=== PATIENT | male | born 1940 | race Caucasian/White ===

== ENCOUNTER 2016-10-26 12:04 | Inpatient (IN) | payer MEDICARE ==
[2016-10-26] MEDS ORDERED: NITROGLYCERIN SL TABS 0.4 MG TAB SUBLINGUAL STA ×3 (12:25)
[2016-10-26] MEDS ORDERED: ASPIRIN 81 MG CHEW PO STA (12:25)
--- NOTE | 2016-10-26 12:28 | ED ---
General Adult HPI - General Chief complaint: Chest Pain Stated complaint: chest pain Time Seen by Provider: 10/26/16 12:14 Source: patient, RN notes reviewed Mode of arrival: wheelchair Limitations: no limitations - History of Present Illness Initial comments: Patient is a pleasant 76-year-old male presenting to emergency Department complaining of chest discomfort. Discomfort feels like pressure without radiation. Patient had some associated dyspnea earlier however that has resolved. Discomfort has improved to 3/10. Discomfort was worse earlier. Patient has had stress and was doing some mild exertion. No diaphoresis or nausea. Patient has had similar symptoms multiple times previously associated with her problems. Patient has had cardiac bypass and ReVision. Patient has had previous heart attacks. No leg pain or swelling. No cough or fever. - Related Data Home Medications Medication Instructions Recorded Confirmed ALPRAZolam [Xanax] 0.5 mg PO QID PRN 06/28/15 10/26/16 Acetaminophen Tab [Tylenol] 1,000 mg PO TID PRN 06/28/15 10/26/16 Citalopram Hydrobromide 40 mg PO DAILY 06/28/15 10/26/16 [Citalopram HBr] Diltiazem HCl [Cardizem Cd] 120 mg PO DAILY 06/28/15 10/26/16 Dipyridamole [Persantine] 50 mg PO QID 06/28/15 10/26/16 Donepezil [Aricept] 10 mg PO DAILY 06/28/15 10/26/16 HYDROcodone/APAP 7.5-325MG [[place] 1 tab PO BID PRN 06/28/15 10/26/16 7.5-325] Isosorbide Dinitrate [Isordil] 80 mg PO BID 06/28/15 10/26/16 Omeprazole [PriLOSEC] 20 mg PO DAILY PRN 06/28/15 10/26/16 Temazepam [Restoril] 15 mg PO HS PRN 06/28/15 10/26/16 Venlafaxine HCl [Effexor] 37.5 mg PO BID 06/28/15 10/26/16 rOPINIRole HCL [Requip] 1 mg PO HS 06/28/15 10/26/16 Albuterol Inhaler [Ventolin Hfa 1 - 2 puff INHALATION RT-Q6H PRN 10/26/16 Inhaler] Atorvastatin Calcium [Lipitor] 80 mg PO HS 10/26/16 10/26/16 Previous Rx's Medication Instructions Recorded Nitroglycerin Sl Tabs [Nitrostat] 0 mg SUBLINGUAL DIRECTED PRN 06/30/15 #25 tab Allergies Allergy/AdvReac Type Severity Reaction Status Date / Time No Known Allergies Allergy Verified 10/26/16 13:17 Review of Systems ROS Statement: Those systems with pertinent positive or pertinent negative responses have been documented in the HPI. ROS Other: All systems not noted in ROS Statement are negative. Constitutional: Denies: fever Eyes: Denies: as per HPI ENT: Denies: ear pain Respiratory: Reports: dyspnea Cardiovascular: Reports: chest pain Endocrine: Denies: fatigue Gastrointestinal: Denies: abdominal pain Genitourinary: Denies: dysuria Musculoskeletal: Denies: back pain Skin: Denies: rash Neurological: Denies: weakness Past Medical History Past Medical History: Coronary Artery Disease (CAD), Cancer, COPD, Dementia, GERD/Reflux, Hyperlipidemia, Hypertension, Memory Impairment, Myocardial Infarction (AR), Osteoarthritis (OA), Pneumonia Additional Past Medical History / Comment(s): PER PAST MEDICAL(2011) RECORD PT STATED" BLOOD CLOTS IN BRAIN CONTRIBUTED TO HIS EARLY ONSET OF DEMENTIA. SEVERAL AR'S, BRONCHITIS, DIVERTICULAR DISEASE,CHRONIC BACK PAIN, PROSTATE CA( HAD SX) Last Myocardial Infarction Date:: UNK History of Any Multi-Drug Resistant Organisms: None Reported Past Surgical History: Coronary Bypass/CABG, Heart Catheterization With Stent, Prostate Surgery Additional Past Surgical History / Comment(s): CABG TRIOLE VESSEL IN 1988 CABG [id number] IN 1999, THUMB CUT OFF HAD SX TO REATTATCH, COLONOSCOPY, PROSTATECTOMY , RUPTURED ACHILLIES TENDON REPAIR. Past Anesthesia/Blood Transfusion Reactions: No Reported Reaction Date of Last Stent Placement:: UNK Past Psychological History: Anxiety, Depression Smoking Status: Former smoker Past Alcohol Use History: None Reported Additional Past Alcohol Use History / Comment(s): SMOKED X 30 YEARS 1PPD, QUIT 27 YEARS AGO Past Drug Use History: None Reported - Past Family History Father Family Medical History: Coronary Artery Disease (CAD), CVA/TIA Additional Family Medical History / Comment(s): CABG AND VALVE SX Mother Family Medical History: Dementia, Hypertension, Osteoarthritis (OA) Additional Family Medical History / Comment(s): MOM IS ALIVE AT 97 YEARS OLD, LIVING IN [facility] General Exam Limitations: no limitations General appearance: alert, in no apparent distress Head exam: Present: atraumatic Eye exam: Present: normal appearance, PERRL ENT exam: Present: normal oropharynx Neck exam: Present: normal inspection Respiratory exam: Present: normal lung sounds bilaterally. Absent: chest wall tenderness Cardiovascular Exam: Present: normal rhythm, bradycardia Expanded Peripheral pulses: 2+: Radial (R), Radial (L), Dorsalis Pedis (R), Dorsalis Pedis (L) GI/Abdominal exam: Present: soft. Absent: tenderness Extremities exam: Present: normal inspection. Absent: pedal edema, calf tenderness Neurological exam: Present: alert Psychiatric exam: Present: normal affect, normal mood Skin exam: Absent: rash Course Vital Signs 10/26/16 10/26/16 10/26/16 12:06 12:46 12:51 Temperature 97.5 F L Pulse Rate 47 L 52 L 49 L Respiratory 17 18 18 Rate Blood Pressure 133/72 133/77 135/69 O2 Sat by Pulse 97 98 98 Oximetry 10/26/16 12:56 Temperature Pulse Rate 52 L Respiratory 18 Rate Blood Pressure 124/64 O2 Sat by Pulse 98 Oximetry - Reevaluation(s) Reevaluation #1: 10/26/16 12:28 Patient states discomfort is starting to increase and will be provided nitroglycerin. EKG Findings - EKG Comments: EKG Findings:: Sinus bradycardia 45. NH 228. QRS 106. QT 434. QTC 375. First-degree AV block. Left axis. Normal QRS. T wave inversion in leads V3 through V6 which does appear different from previous EKG dated June 29 2015. Medical Decision Making - Medical Decision Making Patient reevaluated and improved. Patient updated on results and plan. Case was discussed in detail with Dr. Gamino who will admit to Dr. saavedra. Dr. saavedra has been paged. Cardiology will be consult it. Admission orders written. IV heparin started. - Lab Data Result diagrams: 10/26/16 12:20 10/26/16 12:20 Lab Results 10/26/16 10/26/16 10/26/16 Range/Units 12:20 12:20 12:20 WBC 5.5 (3.8-10.6) k/uL RBC 4.59 (4.30-5.90) m/uL Hgb 14.6 (13.0-17.5) gm/dL Hct 43.6 (39.0-53.0) % MCV 94.9 (80.0-100.0) fL MCH 31.9 (25.0-35.0) pg MCHC 33.6 (31.0-37.0) g/dL RDW 12.7 (11.5-15.5) % Plt Count 158 (150-450) k/uL Neutrophils % 57 % Lymphocytes % 29 % Monocytes % 8 % Eosinophils % 3 % Basophils % 1 % Neutrophils # 3.1 (1.3-7.7) k/uL Lymphocytes # 1.6 (1.0-4.8) k/uL Monocytes # 0.5 (0-1.0) k/uL Eosinophils # 0.1 (0-0.7) k/uL Basophils # 0.0 (0-0.2) k/uL PT (9.0-12.0) sec INR (<1.1) APTT (22.0-30.0) sec Sodium 141 (137-145) mmol/L Potassium 4.3 (3.5-5.1) mmol/L Chloride 104 (98-107) mmol/L Carbon Dioxide 27 (22-30) mmol/L Anion Gap 10 mmol/L BUN 19 (9-20) mg/dL Creatinine 0.80 (0.66-1.25) mg/dL Est GFR (MDRD) Af Amer >60 (>60 ml/min/1.73 sqM) Est GFR (MDRD) Non-Af >60 (>60 ml/min/1.73 sqM) Glucose 85 (74-99) mg/dL Calcium 9.5 (8.4-10.2) mg/dL Magnesium 1.9 (1.6-2.3) mg/dL Total Bilirubin 0.6 (0.2-1.3) mg/dL AST 27 (17-59) U/L ALT 33 (21-72) U/L Alkaline Phosphatase 85 (38-126) U/L Total Creatine Kinase 70 (55-170) U/L CK-MB (CK-2) 1.1 (0.0-2.4) ng/mL CK-MB (CK-2) Rel Index 1.6 Troponin I <0.012 (0.000-0.034) ng/mL NT-Pro-B Natriuret Pep pg/mL Total Protein 6.4 (6.3-8.2) g/dL Albumin 4.0 (3.5-5.0) g/dL 10/26/16 10/26/16 Range/Units 12:20 12:20 WBC (3.8-10.6) k/uL RBC (4.30-5.90) m/uL Hgb (13.0-17.5) gm/dL Hct (39.0-53.0) % MCV (80.0-100.0) fL MCH (25.0-35.0) pg MCHC (31.0-37.0) g/dL RDW (11.5-15.5) % Plt Count (150-450) k/uL Neutrophils % % Lymphocytes % % Monocytes % % Eosinophils % % Basophils % % Neutrophils # (1.3-7.7) k/uL Lymphocytes # (1.0-4.8) k/uL Monocytes # (0-1.0) k/uL Eosinophils # (0-0.7) k/uL Basophils # (0-0.2) k/uL PT 10.5 (9.0-12.0) sec INR 1.0 (<1.1) APTT 25.3 (22.0-30.0) sec Sodium (137-145) mmol/L Potassium (3.5-5.1) mmol/L Chloride (98-107) mmol/L Carbon Dioxide (22-30) mmol/L Anion Gap mmol/L BUN (9-20) mg/dL Creatinine (0.66-1.25) mg/dL Est GFR (MDRD) Af Amer (>60 ml/min/1.73 sqM) Est GFR (MDRD) Non-Af (>60 ml/min/1.73 sqM) Glucose (74-99) mg/dL Calcium (8.4-10.2) mg/dL Magnesium (1.6-2.3) mg/dL Total Bilirubin (0.2-1.3) mg/dL AST (17-59) U/L ALT (21-72) U/L Alkaline Phosphatase (38-126) U/L Total Creatine Kinase (55-170) U/L CK-MB (CK-2) (0.0-2.4) ng/mL CK-MB (CK-2) Rel Index Troponin I (0.000-0.034) ng/mL NT-Pro-B Natriuret Pep 153 pg/mL Total Protein (6.3-8.2) g/dL Albumin (3.5-5.0) g/dL - Radiology Data Radiology results: image reviewed (Chest x-ray shows no acute process) Critical Care Time Critical Care Time: Yes Total Critical Care Time: 31 Disposition Clinical Impression: Unstable angina pectoris Disposition: ADMITTED IP TO THIS [facility] Condition: Serious Time of Disposition: 13:35
[2016-10-26 12:44] LABS: Basophils % (A) 1 %; CH 32.8; CHCM 34.7; Eosinophils # (A) 0.1 k/uL (0-0.7); Eosinophils % (A) 3 %; HCT 43.6 % (39.0-53.0); HDW 2.62; HGB 14.6 gm/dL (13.0-17.5); Luc # (Auto) 0.15; Luc % (Auto) 3; Lymphocytes # (A) 1.6 k/uL (1.0-4.8); Lymphocytes % (A) 29 %; MCH 31.9 pg (25.0-35.0); MCHC 33.6 g/dL (31.0-37.0); MCV 94.9 fL (80.0-100.0); Mean Platelet Volume 7.6; Monocytes # (A) 0.5 k/uL (0-1.0); Monocytes % (A) 8 %; Neutrophils # (A) 3.1 k/uL (1.3-7.7); Neutrophils % (A) 57 %; RBC 4.59 m/uL (4.30-5.90); RDW 12.7 % (11.5-15.5); WBC 5.5 k/uL (3.8-10.6); WBC (Perox) 5.31
[2016-10-26 12:52] LABS: Partial Thromboplastin Time 25.3 sec (22.0-30.0); Prothrombin Time 10.5 sec (9.0-12.0)
--- NOTE | 2016-10-26 12:52 | XR ---
EXAMINATION TYPE: XR chest 2V DATE OF EXAM: 10/26/2016 12:39 PM COMPARISON: Prior chest x-ray 28 June 2015 HISTORY: Chest pain, COPD TECHNIQUE: Frontal and lateral views of the chest are obtained. FINDINGS: Patient is rotated and there are overlying cardiac leads, patient is post median sternotom y. Heart size may be accentuated by rotation. No evident pneumonia, pneumothorax, or pleural effusion . Pulmonary vascularity and beau are stable. Prominent lung volumes compatible with COPD. IMPRESSION: No acute cardiopulmonary process.
[2016-10-26 12:54] LABS: ALT 33 U/L (21-72); AST 27 U/L (17-59); Alkaline Phosphatase 85 U/L (38-126); Anion Gap 10 mmol/L; Blood Urea Nitrogen 19 mg/dL (9-20); Calcium 9.5 mg/dL (8.4-10.2); Carbon Dioxide 27 mmol/L (22-30); Chloride 104 mmol/L (98-107); Glucose 85 mg/dL (74-99); Magnesium 1.9 mg/dL (1.6-2.3); Non-African American GFR(MDRD) >60 (>60 ml/min/1.73 sqM); Potassium 4.3 mmol/L (3.5-5.1); Sodium 141 mmol/L (137-145); Total Bilirubin 0.6 mg/dL (0.2-1.3); Total Protein 6.4 g/dL (6.3-8.2)
[2016-10-26 13:04] LABS: Creatine Kinase 70 U/L (55-170)
[2016-10-26 13:17] LABS: Creatine Kinase MB 1.1 ng/mL (0.0-2.4); Troponin I <0.012 ng/mL (0.000-0.034)
[2016-10-26] MEDS ORDERED: HEPARIN SODIUM,PORCINE 5,000 UNIT/ML 1 ML VIAL IV ONE (13:36)
[2016-10-26] MEDS ORDERED: HEPARIN SODIUM,PORCINE 5,000 UNIT/ML 1 ML VIAL IV PRN (13:36)
[2016-10-26] MEDS ORDERED: HEPARIN SODIUM,PORCINE/D5W PMX 25,000 UNIT in DEXTROSE/WATER 1 500ML.BAG IV SCH (13:45)
[2016-10-26] MEDS ORDERED: SODIUM CHLORIDE 0.9% 1,000 ML IV SCH (14:00)
[2016-10-26 15:33] VITALS: BMI 26.3
[2016-10-26] MEDS ORDERED: HYDROcodone/APAP 7.5-325MG 1 EACH TAB PO PRN (17:57)
[2016-10-26] MEDS ORDERED: PANTOPRAZOLE 40 MG TABLET PO PRN (17:57)
[2016-10-26] MEDS ORDERED: NITROGLYCERIN OINT 1 INCH/GM PACKET TOPICAL SCH (18:00)
[2016-10-26 19:41] LABS: Creatine Kinase 62 U/L (55-170)
[2016-10-26] MEDS: NITROGLYCERIN SL TABS 0.4 MG TAB SUBLINGUAL PRN ×2 (19:52→20:06)
[2016-10-26 19:54] LABS: Creatine Kinase MB 0.9 ng/mL (0.0-2.4); Troponin I <0.012 ng/mL (0.000-0.034)
[2016-10-26] MEDS: ISOSORBIDE DINITRATE 20 MG TAB PO SCH (20:07)
[2016-10-26] MEDS: DIPYRIDAMOLE 25 MG TAB PO SCH ×2 (20:07→20:49)
[2016-10-26] MEDS: VENLAFAXINE HCL 37.5 MG TAB PO SCH (20:07)
[2016-10-26] MEDS: ATORVASTATIN 80 MG TAB PO SCH (20:07)
[2016-10-26] MEDS: ALPRAZolam 0.5 MG TAB PO PRN (20:14)
[2016-10-26] MEDS: TEMAZEPAM 15 MG CAP PO PRN (20:14)
--- NOTE | 2016-10-26 21:35 | HP ---
DATE OF ADMISSION: 10/26/2016 PRESENTING COMPLAINT: Chest pain. HISTORY OF PRESENTING COMPLAINT: This is a 76-year-old patient of Dr. Gamino, follows with board runner, Dr. Isaac Potter. The patient has a known history of coronary artery disease, prior history of CABG and stent. Does not remember his last time he had a stress test. Other stable conditions include COPD, GERD, hypertension, hyperlipidemia, osteoarthritis, some dementia and diverticulosis. Patient has been having chest pressure on and off for some time. 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 The patient was short of breath, felt tired, rundown. This was left-sided, precordial and did not radiate anywhere. Because of the duration, decided to come in and admitted for unstable angina. REVIEW OF SYSTEMS: CONSTITUTIONAL: Tired. HEENT: None. RESPIRATORY: As above. CARDIOVASCULAR: As above. GASTROINTESTINAL: Heartburn. GENITOURINARY: None. MUSCULOSKELETAL: Arthritic pain in the joints. Dermatologic: None. HEMATOLOGIC: None. PSYCHIATRY: None. NEUROLOGICAL: None. PAST MEDICAL HISTORY: Coronary artery disease, CABG, COPD, GERD, hyperlipidemia, hypertension, osteoarthritis, dementia, diverticulosis, back pain, prostate cancer. PAST SURGICAL HISTORY: Coronary artery bypass, cardiac cath with stent, prostate surgery. Tonsillectomy. CABG in 1988, thumb cut off, had surgery to reattach, colonoscopy, prostatectomy, ruptured Achilles tendon. Past psych history: Anxiety, depression. SOCIAL HISTORY: The patient smoked for 30 years, about a pack a day, quit 27 years ago. Retired. FAMILY HISTORY: Coronary artery disease and stroke. HOME MEDICATIONS: 1. Requip 1 mg p.o. q.h.s. 2. Restoril 50 mg p.o. q.h.s. p.r.n. 3. [place] 7.5 1 tablets p.o. b.i.d. p.r.n. 4. Ventolin HFA 1 to 2 puffs q.6 p.r.n. 5. Tylenol 1000 mg p.o. t.i.d. p.r.n. 6. Xanax 0.5 mg p.o. q.i.d. p.r.n. 7. Prilosec 20 mg p.o. daily p.r.n. 8. ( ). 9. Lipitor 80 mg q.h.s. 10. Effexor 37.5 p.o. b.i.d. 11. Isoptin 80 mg p.o. b.i.d. 12. Aricept 10 mg p.o. daily. 13. Persantine 50 mg p.o. q.i.d. 14. Cardizem CD 120 mg p.o. daily. 15. Celexa 40 mg p.o. daily. ALLERGIES: None. On examination, temperature 97.5, pulse 47, respirations 17, blood pressure 130/72, pulse ox 97% on room air. Tired. Sitting up, not in distress. EYES: Pupils equal. Conjunctivae normal. HEENT: External appearance of nose and ears normal. Oral cavity normal. NECK: JVD not raised. Mass not palpable. RESPIRATORY: Effort normal. LUNGS: Slightly decreased breath sounds. CARDIOVASCULAR: First and second sounds normal. No edema. ABDOMEN: Soft, nontender. Liver and spleen not palpable. LYMPHATICS: Lymph nodes palpable in the neck and axilla. PSYCHIATRY: Alert and oriented x3. Mood and affect normal. NEUROLOGICAL: Pupils equal. Cranial nerves grossly intact. Power and sensation grossly intact. INVESTIGATIONS: White count 5.5, hemoglobin 14.6. Potassium 4.3. BUN and creatinine are normal. Troponin less than 0.012. EKG patient has got some nonspecific changes seen in the anterior leads. ASSESSMENT: 1. Acute coronary syndrome/unstable angina in a patient with known coronary artery disease and has been having chest pain on and off for quite some time and now presents with a good few hours of pain and some EKG changes. Troponins are negative. The patient has not had a stress test for quite a while. 2. Coronary artery disease with prior history of stent and coronary artery bypass. 3. Chronic obstructive pulmonary disease in an ex-smoker. 4. Gastroesophageal reflux disease. 5. Essential hypertension. 6. Hyperlipidemia. 7. Primary osteoarthritis of multiple joints, bilateral. 8. Alzheimer's dementia, late onset type. 9. Chronic diverticulosis. PLAN: Patient was started on IV heparin. Home medication are resumed. Cardiology is consulted. The patient may need a cardiac catheterization given his symptoms are progressively getting worse. Care was discussed with patient. The patient will need inpatient stay if he needs cardiac catheterization. Care was discussed with the patient. Copy to Dr. Gamino.
[2016-10-27 01:56] LABS: Creatine Kinase 52 U/L (55-170)
[2016-10-27 02:08] LABS: Creatine Kinase MB 0.8 ng/mL (0.0-2.4); Troponin I <0.012 ng/mL (0.000-0.034)
[2016-10-27 06:48] LABS: Mean Platelet Volume 7.6
[2016-10-27 06:56] LABS: Cholesterol 116 mg/dL (<200); HDL Cholesterol 56 mg/dL (40-60); Triglycerides 118 mg/dL (<150)
[2016-10-27] MEDS: ISOSORBIDE DINITRATE 20 MG TAB PO SCH (08:22)
[2016-10-27] MEDS ORDERED: DILTIAZEM CD 120 MG CAP.ER.24H PO SCH (09:00)
[2016-10-27] MEDS: DONEPEZIL 10 MG TAB PO SCH (09:13)
[2016-10-27] MEDS: VENLAFAXINE HCL 37.5 MG TAB PO SCH ×2 (09:13→20:14)
[2016-10-27] MEDS: LOSARTAN 50 MG TAB PO SCH (09:13)
[2016-10-27] MEDS: DIPYRIDAMOLE 25 MG TAB PO SCH ×4 (09:13→20:14)
[2016-10-27] MEDS: CITALOPRAM HYDROBROMIDE 20 MG TAB PO SCH (09:13)
--- NOTE | 2016-10-27 09:34 | CONS ---
DATE OF CONSULTATION: Mr. Prateek Garcia is a patient of Dr. Saud Potter who presented with recurrent discomfort in the chest that radiated up to the left shoulder. He was at work, but he was not really exerting himself. He states that if feels like his discomfort before his bypass surgery. He did not have any undue shortness of breath, dizziness, lightheadedness, nausea or sweating. The pain lasted for quite some time, but it would happen off and on. He does feel a little tired. REVIEW OF SYSTEMS: He feels tired, but no fever, chills, or rigors. No cough, phlegm, or expectoration. No nausea, vomiting or diarrhea. No hematuria, dysuria. No strokes or seizures. No skin lesions or musculoskeletal complaints. Past medical history of coronary artery disease, coronary artery bypass grafting on 2 separate occasions. He states he had a kink in the LAD that had to be fixed. History of hypertension, dyslipidemia, osteoarthritis, mild dementia according to the history. He gives me a very good history though, history of prostate cancer. PAST SURGICAL HISTORY: Coronary artery bypass grafting multiple stents, CABG in 1998, then later once again bilateral approach. He does have a cardiomyopathy, in 2015 he had ejection fraction of 40% to 45%. PAST PSYCHIATRIC HISTORY: He states that he is under a lot of stress. SOCIAL HISTORY: He has smoked for 30 years but quit 27 years back. Family history of coronary disease, stroke. Medications at home include Requip, Restoril, [place], Ventolin, Tylenol, Xanax, Prilosec, Lipitor 80 mg daily, Effexor, Imdur 80 mg twice daily, which is unusual. I am not sure if this is Imdur because Dr. Rojo's notes states Isoptin, but it is unusual that he would be on both Isoptin and Cardizem 120 mg a day. He is also on Persantine and Celexa. I will try to get his office records to see what medications he is on. ALLERGIES: No known drug allergies. On examination, he is lying comfortably in bed. Head and neck examination is normal. No JVD, thyromegaly, or carotid bruits. Heart sounds S1, S2 are normal. No murmurs, no gallops. No rub. Breath sounds are normal. No rhonchi. No crackles. Extremities are warm. No edema. Temperature 98.3 degrees Fahrenheit, pulse rate in the 50s and 60s. Blood pressure 134/73 and 156/83 mmHg. Normal respirations. Abdomen was soft, nontender. His labs are reviewed. His cardiac enzymes x3 are negative. Electrolytes are normal. Renal function is normal. Lipids were reviewed and his triglycerides 118, total cholesterol 116, LDL 36, HDL 56. IMPRESSION: 1. Atypical but recurrent chest discomfort off and on with normal cardiac enzymes. 2. Known coronary artery disease, status post coronary artery bypass grafting on 2 occasions, 3. Hypertension. 4. Dyslipidemia. 5. Remote history of smoking. 6. Patient is under a lot of stress. 7. Normal renal function normal. 8. Normal liver function. 9. Ischemic cardiomyopathy, ejection fraction about 40% to 45% in 2015. SUGGEST: I would stop Cardizem as well as isosorbide completely. He has had 3 cardiac enzymes that are normal. I would stop the heparin and he should ambulate in the hallways. If he has any chest discomfort, a 12-lead ECG will be ordered. So far his 12-lead ECG shows sinus bradycardia at 45 beats a minute. Normal LA, narrow QRS, and ST segment abnormalities in the anterior precordial leads This is the only ECG I have so far. My plan would be to add losartan first 50 mg p.o. daily and tomorrow Lexiscan Cardiolite stress test and further management thereafter. From a medical standpoint, his 80 mg of Lipitor is working very well for him. His LDL is very low as it should be. I would like to speak to Dr. Saud Potter regarding the use of isosorbide and diltiazem. He does have a history of COPD, but he does not have recurrent chronic obstructive pulmonary disease exacerbations; therefore, I think beta [place] should be fine for him. Toprol-XL 50 mg a day along with losartan should be appropriate for him and then subsequently also add low dose Aldactone. If he needs a small dose of Imdur that should be fine, but I would not treat him with Cardizem and I will reduce the dose of isosorbide if he is on any. His medication list does need to be clarified and I will request his last office note to see what exactly he is on. If his Lexiscan Cardiolite stress test is normal. He should be able to go home tomorrow and then follow with Dr. Saud Potter. Follow up with Dr. Saud Potter.
[2016-10-27] MEDS: ASPIRIN 325 MG TAB PO SCH (10:56)
--- NOTE | 2016-10-27 11:03 | P.CNPUL ---
History of Present Illness Consult date: 10/27/16 Reason for consult: other (Chest pain) Chief complaint: Chest pain History of present illness: This is a 76-year-old white male with history of coronary artery disease, previous CABG on 2 separate occasions, multiple stents, CABG in 1998, and later once again had bilateral approach. He is also known to have history of cardiomyopathy and LV dysfunction with EF of 40%. History of depression, hypertension, dyslipidemia osteoarthritis and history of prostate cancer. Patient presented to the hospital with 2 months history of intermittent episodes of substernal chest pains. Pain was felt over the left parasternal area, and he also had some pain in the left upper scapular region. Pain has been intermittent for the last 2 months. On his last visit with the radio board operator, he did not mention these episodes of chest pains. The pains are not exertional, they seem at times related to certain movement. EKG on arrival to the ER showed nonspecific changes, series of troponin were done and they were all negative. Patient was already seen by the radio board operator, and he felt the pain was atypical. As far as his COPD is concerned, patient denies any cough wheezing or shortness of breath. Patient quit smoking over 27 years ago. He smoked for about 30 years. Review of Systems 14 point review of systems were obtained, please refer to pertinent positives and negatives in HPI. 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 SEVERAL OH'S, BRONCHITIS, DIVERTICULAR DISEASE,CHRONIC BACK PAIN , PROSTATE CA(HAD SX) Last Myocardial Infarction Date:: UNK History of Any Multi-Drug Resistant Organisms: None Reported Past Surgical History: Coronary Bypass/CABG, Heart Catheterization With Stent, Prostate Surgery, Tonsillectomy Additional Past Surgical History / Comment(s): CABG TRIOLE VESSEL IN 1988 CABG [id number] IN 1999, THUMB CUT OFF HAD SX TO REATTATCH, COLONOSCOPY, PROSTATECTOMY , RUPTURED ACHILLIES TENDON REPAIR. Past Anesthesia/Blood Transfusion Reactions: No Reported Reaction Date of Last Stent Placement:: UNK Past Psychological History: Anxiety, Depression Smoking Status: Former smoker Past Alcohol Use History: None Reported Additional Past Alcohol Use History / Comment(s): SMOKED X 30 YEARS 1PPD, QUIT 27 YEARS AGO Past Drug Use History: None Reported - Past Family History Father Family Medical History: Coronary Artery Disease (CAD), CVA/TIA Additional Family Medical History / Comment(s): CABG AND VALVE SX Mother Family Medical History: Dementia, Hypertension Additional Family Medical History / Comment(s): MOM IS ALIVE AT 97 YEARS OLD, LIVING IN [facility] Medications and Allergies Home Medications Medication Instructions Recorded Confirmed Type ALPRAZolam [Xanax] 0.5 mg PO QID PRN 06/28/15 10/26/16 History Acetaminophen Tab [Tylenol] 1,000 mg PO TID PRN 06/28/15 10/26/16 History Citalopram Hydrobromide 40 mg PO DAILY 06/28/15 10/26/16 History [Citalopram HBr] Diltiazem HCl [Cardizem Cd] 120 mg PO DAILY 06/28/15 10/26/16 History Dipyridamole [Persantine] 50 mg PO QID 06/28/15 10/26/16 History Donepezil [Aricept] 10 mg PO DAILY 06/28/15 10/26/16 History HYDROcodone/APAP 7.5-325MG [[place] 1 tab PO BID PRN 06/28/15 10/26/16 History 7.5-325] Isosorbide Dinitrate [Isordil] 80 mg PO BID 06/28/15 10/26/16 History Omeprazole [PriLOSEC] 20 mg PO DAILY PRN 06/28/15 10/26/16 History Temazepam [Restoril] 15 mg PO HS PRN 06/28/15 10/26/16 History Venlafaxine HCl [Effexor] 37.5 mg PO BID 06/28/15 10/26/16 History rOPINIRole HCL [Requip] 1 mg PO HS 06/28/15 10/26/16 History Albuterol Inhaler [Ventolin Hfa 1 - 2 puff INHALATION RT-Q6H PRN 10/26/16 History Inhaler] Atorvastatin Calcium [Lipitor] 80 mg PO HS 10/26/16 10/26/16 History Allergies Allergy/AdvReac Type Severity Reaction Status Date / Time No Known Allergies Allergy Verified 10/26/16 13:17 Physical Exam Vitals: Vital Signs Temp Pulse Pulse Resp BP BP Pulse Ox 10/27/16 08:00 98.3 F 63 18 156/83 97 10/27/16 03:43 98.1 F 59 L 18 134/73 93 L 10/27/16 03:22 53 L 18 10/26/16 23:17 59 L 18 10/26/16 22:46 61 18 160/84 95 10/26/16 20:00 58 L 18 10/26/16 19:42 98 F 55 L 18 153/76 95 10/26/16 14:43 98.8 F 56 L 16 159/73 99 10/26/16 13:56 98.3 F 46 L 18 151/74 98 Intake and Output 10/26/16 10/27/16 10/27/16 22:59 06:59 14:59 Other: Voiding Method Toilet Toilet Toilet # Voids 2 2 Weight 78.5 kg Physical Exam: Revealed a 76-year-old white male in no distress HEENT:[Neck is supple.] [No neck masses.] [No thyromegaly.] [No JVD.] Chest: [Clear throughout, no crackles, no rhonchi, no wheezes.] Definite tenderness noted in the left parasternal area, pain was felt to be reproducible , same tenderness was noted in the left upper scapular region in the back. Cardiac Exam: [Normal S1 and S2, no S3 gallop, no murmur.] Abdomen: [Soft, nontender, no megaly, no rebound, no guarding, normal bowel sounds.] Extremities: [No clubbing, no edema, no cyanosis.] Neurological Exam: [No focal neurologic deficit.] Results - Laboratory Findings CBC and BMP: 10/27/16 06:17 10/26/16 12:20 PT/INR, D-dimer PT 10.5 sec (9.0-12.0) 10/26/16 12:20 INR 1.0 (<1.1) 10/26/16 12:20 Abnormal lab findings: Abnormal Labs 10/26/16 10/27/16 10/27/16 19:02 01:00 06:17 APTT 47.4 H 42.4 H Total Creatine Kinase 52 L - Diagnostic Findings Chest x-ray: image reviewed (No evidence of active disease or cardiopulmonary process) Assessment and Plan Plan: Impression: 1 atypical chest pain, this is felt to be musculoskeletal unless proven otherwise. 2 history of coronary artery disease, previous CABG and multiple stents placed. 3 history of mild asymptomatic COPD. 4 history of multiple comorbidities including hyperlipidemia, hypertension, osteoarthritis, mild dementia, depression, and history of chronic diverticulosis. Recommendation: Agree with stopping heparin, consider a stress test, possible discharge planning in a.m. and follow up on outpatient basis. Time with Patient: Greater than 30
[2016-10-27] MEDS: ATORVASTATIN 80 MG TAB PO SCH (20:14)
[2016-10-27] MEDS: TEMAZEPAM 15 MG CAP PO PRN (21:35)
[2016-10-27] MEDS: ALPRAZolam 0.5 MG TAB PO PRN (21:35)
[2016-10-28] MEDS ORDERED: REGADENOSON 0.4 MG/5 ML SYRINGE IV ONE (05:00)
[2016-10-28] MEDS ORDERED: AMINOPHYLLINE 500 MG/20 ML VIAL IV PRN (05:00)
[2016-10-28 07:07] LABS: Mean Platelet Volume 7.4
--- NOTE | 2016-10-28 07:50 | PN ---
DATE OF SERVICE: 10/27/2016 PRESENTING COMPLAINT: Chest pain. INTERVAL HISTORY: Patient with known coronary artery disease presented with unstable angina. Seen by Dr. Pfeiffer from cardiology. Awaiting a stress test tomorrow. No further episodes. Review of systems done for constitutional, cardiovascular, GI, pulmonary; relevant findings as above. Current medications are reviewed. The patient is off heparin. On examination, temperature 98.3, pulse 69, respirations 16, blood pressure 165/79, pulse ox 96% on room air. GENERAL APPEARANCE: Lying in bed, comfortable. EYES: Pupils equal. Conjunctivae normal. NECK: JVD not raised. Mass not palpable. RESPIRATORY: Effort normal. LUNGS: Slightly decreased breath sounds. CARDIOVASCULAR: First and second sounds normal. No edema. ABDOMEN: Soft, nontender. Liver and spleen not palpable. PSYCHIATRY: Alert and oriented x3. Mood and affect normal. INVESTIGATIONS: Troponin x3 is negative. LDL is 36. ASSESSMENT: 1. Unstable angina in a patient with known coronary artery disease, symptoms ( ) progressive, awaiting a stress test tomorrow. 2. Coronary artery disease with prior history of stent and coronary artery bypass. 3. Chronic obstructive pulmonary disease in an ex-smoker. 4. Gastroesophageal reflux disease. 5. Essential hypertension, uncontrolled. 6. Hyperlipidemia. 7. Primary osteoarthritis of multiple joints bilaterally. 8. Alzheimer's dementia, late onset type. 9. Chronic diverticulosis. PLAN: Medications were adjusted by Dr. Pfeiffer. Patient awaiting a stress test tomorrow. Will follow.
--- NOTE | 2016-10-28 09:04 | P.PN ---
Subjective Principal diagnosis: Chest pain and bradycardia This patient with history of extensive ischemic heart disease is admitted to the hospital with chest pain. Patient was seen by Dr. Pfeiffer. He is scheduled to have a Lexiscan stress test today. He was taken off the Cardizem and Imdur. His heart rate is better than when he came in. The plan is to send him home if the Lexiscan stress test is negative. He'll have follow-up with Dr. Allen upon discharge. He may be initiated on beta blockers once his heart rate stabilizes. His cardiac enzymes have been negative. Objective - Vital Signs Vital signs: Vital Signs Temp 97.9 F 10/28/16 08:00 Pulse 57 L 10/28/16 08:00 Resp 18 10/28/16 08:00 BP 161/79 10/28/16 08:00 Pulse Ox 97 10/28/16 08:00 Intake & Output 10/27/16 10/28/16 10/28/16 18:59 06:59 18:59 Intake Total 477 Balance 477 Intake: Oral 477 Other: Voiding Method Toilet Toilet # Voids 2 1 - Labs CBC & Chem 7: 10/28/16 06:43 10/26/16 12:20 Assessment and Plan (1) Chest pain Status: Acute (2) Bradycardia Status: Acute (3) COPD (chronic obstructive pulmonary disease) Status: Acute Plan: Patient is going for a Lexiscan stress test. If that is negative patient could be discharged home from Cardec standpoint. He could be sent home without a Cardizem. Follow-up with Dr. Allen and he may be initiated on beta blockers as an outpatient.
--- NOTE | 2016-10-28 10:58 | EST ---
DATE OF SERVICE: 10/28/2016 AGE: 76Y SEX: M HT: 68" WT: 173 lbs. Protocol Jeremiah: Other: Lexiscan Cardiolite Stage: Dur. of Exercise: *Heart Rate Blood Pressure *Rest: 50 Rest: 136/71 * *Max. Achieved: 88 Maximum BP: 141/79 85% PMHR: 122 100% PMHR: 143 *METS: INDICATIONS: Chest pain. MEDICATIONS: CLINICAL INFORMATION: Known patient of atherosclerotic heart disease, status post aortocoronary bypass surgery x2, status post multiple angioplasties and stenting in the past. Patient admitted to the hospital with chest pain without any enzyme leaks. EKG shows normal sinus bradycardia with nonspecific ST-T wave changes. Resting ECG shows sinus rhythm, rate of 50 beats per minute, [place] interval 0.16, QRS 0.08, nonspecific ST-T wave changes. Utilizing a Lexiscan protocol, Lexiscan was given IV push followed by serial EKGs, complained of some chest pain without any EKG changes or ST segment deviations indicative of ischemia. Patient tolerated the procedure very well. Patient did not have any ST segment deviations during or following the Lexiscan IV push. IMPRESSION: 1. Baseline rhythm is sinus with normal [place] interval, normal QRS, nonspecific ST-T wave changes. 2. Negative Lexiscan Cardiolite study. 3. Nuclear scintigrams to follow from radiology department.
[2016-10-28] MEDS: DIPYRIDAMOLE 25 MG TAB PO SCH ×2 (11:02→14:15)
[2016-10-28] MEDS: LOSARTAN 50 MG TAB PO SCH (11:03)
[2016-10-28] MEDS: VENLAFAXINE HCL 37.5 MG TAB PO SCH (11:03)
[2016-10-28] MEDS: ASPIRIN 325 MG TAB PO SCH (11:03)
[2016-10-28] MEDS: CITALOPRAM HYDROBROMIDE 20 MG TAB PO SCH (11:04)
[2016-10-28] MEDS: DONEPEZIL 10 MG TAB PO SCH (11:04)
--- NOTE | 2016-10-28 11:07 | NM ---
EXAMINATION TYPE: NM stress lexiscan cardiolite DATE OF EXAM: 10/28/2016 10:51 AM COMPARISON: NONE HISTORY: Chest pain TECHNIQUE: After the intravenous administration of 11.0 mCi Tc 99m Sestamibi - Cardiolite resting SP ECT images acquired 45 minutes post injection. The patient received 0.4mg Lexiscan, 26.0 mCi Tc 99m Sestamibi - Stress images obtained [address] injection FINDINGS: Review of stress and rest SPECT images demonstrates no distinct perfusion abnormality. Gated analysi s shows normal wall motion with an estimated left ventricular ejection fraction of 42 %. This is low, normal is greater than 50%. There is a large defect along the lateral wall which extends into the anterior wall and a smaller por tion of the posterior wall. Some minimal reversibility may be present near the cardiac base. This are a is largely nonreversible. IMPRESSION: 1. Large defect along the lateral wall compatible with infarct. 2. Small amount of reversibility may be along the anterior lateral wall near the cardiac base. This l arge defect is mostly nonreversible.
[2016-10-28 12:03] VITALS: RESP 16
--- NOTE | 2016-10-28 12:45 | P.PN ---
Subjective 76-year-old patient seen by my partner in consultation. The patient has a history of CAD previous bypass grafting on 2 separate occasions multiple stents and also has a history of cardiomyopathy and LV dysfunction. The patient also suffers some depression hypertension hyperlipidemia osteoarthritis and prostate cancer. Presented to the hospital with intermittent episodes of substernal chest pain. The pains are not exertional. Seen be related to certain movements. Anyway the patient did have a Lexiscan which showed a big area of infarct in the lateral wall consistent with an infarct. Objective - Vital Signs Vital signs: Vital Signs Temp 98.1 F 10/28/16 12:00 Pulse 61 10/28/16 12:00 Resp 16 10/28/16 12:00 BP 146/82 10/28/16 12:00 Pulse Ox 99 10/28/16 12:00 Intake & Output 10/27/16 10/28/16 10/28/16 18:59 06:59 18:59 Intake Total 477 Balance 477 Intake: Oral 477 Other: Voiding Method Toilet Toilet # Voids 2 1 - Exam No acute distress, oriented 3. HEENT examination is grossly unremarkable. Mucous members are moist. Neck supple. Full range of motion. No adenopathy. Cardiovascular examination reveals regular rhythm rate. S1-S2 normal. No S3- S4 or murmur. Lungs reveal a few scattered rhonchi. No wheezes or crackles abdomen soft bowel sounds are heard. Extremities are intact. Neurologic examination is pretty but nonfocal Skin is without rash. - Labs CBC & Chem 7: 10/28/16 06:43 10/26/16 12:20 Assessment and Plan (1) CAD (coronary artery disease) Status: Acute (2) Bradycardia Status: Acute (3) Chest pain Status: Acute (4) Unstable angina pectoris Status: Acute (5) Bronchospasm, acute Status: Acute (6) Left lower lobe pneumonia Status: Acute Plan: Plan 10/28/2016 We'll await input by cardiology. We'll continue to follow. COPD is mild and stable. Additional recommendations are made.The results of the Lexiscan are reviewed. Time with Patient: Less than 30
[2016-10-28 16:02] VITALS: BP 156/72; PULSE 56; TEMP 98.6
--- NOTE | 2016-10-29 10:22 | DS ---
DATE OF ADMISSION: 10/26/2016 DATE OF DISCHARGE: 10/28/2016 FINAL DIAGNOSES: 1. Chest pain, in a patient with known coronary artery disease possibly vasospastic angina possible. 2. Coronary artery disease with prior history of stent and coronary bypass. 3. Chronic obstructive pulmonary disease in an ex-smoker. 4. Gastroesophageal reflux disease. 5. Essential hypertension, uncontrolled. 6. Hyperlipidemia. 7. Primary osteoarthritis in multiple joints bilaterally. 8. Alzheimer's dementia, late onset type. 9. Chronic diverticulosis. CONSULTATION: Cardiology, Dr. Pfeiffer/Dr. Dixon and Dr. Gamino from pulmonary. HOSPITAL COURSE: This patient presented with chest pain, uncontrolled blood pressure. Seen by Dr. Pfeiffer. Patient had a Lexiscan stress test, was reported to be negative. I spoke to Dr. Dixon today, dose of Cardizem has been cut back to half. Dose of nitrates will be maintained. He will follow up with them in the office. No further chest pain. On exam, lungs are clear. CARDIOVASCULAR: First and second sounds normal. DISCHARGE MEDICATIONS: 1. Xanax 0.5 p.o. q.i.d. p.r.n. 2. Tylenol 1000 mg p.o. t.i.d. p.r.n. 3. Celexa 40 mg p.o. daily. 4. Persantine 50 mg p.o. q.i.d. 5. Aricept 10 mg p.o. daily. 6. [place] 7.5 one tablet b.i.d. p.r.n. 7. Isoptin 80 mg p.o. b.i.d. 8. Prilosec 20 mg p.o. daily. 9. Restoril 15 mg p.o. q.h.s. p.r.n. 10. Effexor 37.5 p.o. b.i.d. 11. Requip 1 mg p.o. q.h.s. 12. Nitrostat sublingual q.5 p.r.n. 13. Ventolin HFA 1 to 2 puffs q.6 p.r.n. 14. Lipitor 80 mg p.o. q.h.s. 15. Aspirin 81 mg p.o. daily. 16. Cardizem CD 60 mg p.o. daily. 17. Cozaar 50 mg p.o. daily. 18. Nitrostat 0.4 sublingual q.5 p.r.n. Follow up with Dr. Isaac Potter in one week; Dr. Gamino in one week.
== END 2016-10-28 18:00 | disposition home or self-care (01) | DRG 303 ==
LOC: EC 12:04 → 3OBS 13:26 → OBSVTOIN 18:04 → 3SUR 18:30 → 3OBS 10-28 10:39
PROVIDERS: ADMIT Hospitalist; ATTEND Hospitalist
PROC: 4A12XM4 Monitoring of Cardiac Stress, External Approach (ICD-10-PCS; principal; 2016-10-28)
PROC: 3E033HZ Introduction of Radioactive Substance into Peripheral Vein, Percutaneous Approach (ICD-10-PCS; 2016-10-28)
PROC: C22G1ZZ Tomographic (Tomo) Nuclear Medicine Imaging of Myocardium using Technetium 99m (Tc-99m) (ICD-10-PCS; 2016-10-28)
DX: I25.111 Atherosclerotic heart disease of native coronary artery with angina pectoris with documented spasm (principal); R00.1 Bradycardia, unspecified; G30.1 Alzheimer's disease with late onset; J44.9 Chronic obstructive pulmonary disease, unspecified; F02.80 Dementia in other diseases classified elsewhere, unspecified severity, without behavioral disturbance, psychotic disturbance, mood disturbance, and anxiety; I25.5 Ischemic cardiomyopathy; E78.5 Hyperlipidemia, unspecified; I44.0 Atrioventricular block, first degree; I10 Essential (primary) hypertension; K21.9 Gastro-esophageal reflux disease without esophagitis; M19.91 Primary osteoarthritis, unspecified site; K57.90 Diverticulosis of intestine, part unspecified, without perforation or abscess without bleeding; F32.9 Major depressive disorder, single episode, unspecified; I25.2 Old myocardial infarction; G89.29 Other chronic pain; R94.31 Abnormal electrocardiogram [ECG] [EKG]; F41.9 Anxiety disorder, unspecified; M54.9 Dorsalgia, unspecified; Z85.46 Personal history of malignant neoplasm of prostate; Z79.891 Long term (current) use of opiate analgesic; Z95.1 Presence of aortocoronary bypass graft; Z95.5 Presence of coronary angioplasty implant and graft; Z87.891 Personal history of nicotine dependence; Z87.01 Personal history of pneumonia (recurrent); Z79.899 Other long term (current) drug therapy; Z82.49 Family history of ischemic heart disease and other diseases of the circulatory system; Z82.3 Family history of stroke; Z87.09 Personal history of other diseases of the respiratory system; Z86.19 Personal history of other infectious and parasitic diseases; Z87.828 Personal history of other (healed) physical injury and trauma; Z82.0 Family history of epilepsy and other diseases of the nervous system; Z90.79 Acquired absence of other genital organ(s); Z63.9 Problem related to primary support group, unspecified
CPT/HCPCS: 36415; 71020; 78452; 80053; 80061; 82550; 82553; 83735; 83880; 84484; 85025; 85049; 85610; 85730; 93005; 93017; 96365; 96366; 96374; 96376; 99291

== ENCOUNTER 2017-07-22 15:18 | Observation (INO) | payer MEDICARE ==
[2017-07-22] MEDS ORDERED: NITROGLYCERIN SL TABS 0.4 MG TAB SUBLINGUAL STA (15:54)
[2017-07-22] MEDS ORDERED: ONDANSETRON 4 MG/2 ML VIAL IVP STA (15:54)
[2017-07-22] MEDS ORDERED: ASPIRIN 81 MG PO STA (15:54)
--- NOTE | 2017-07-22 15:57 | ED ---
Chest Pain HPI - General Chief Complaint: Chest Pain Stated Complaint: chest pain Time Seen by Provider: 07/22/17 15:48 Source: patient, RN notes reviewed, old records reviewed Mode of arrival: wheelchair Limitations: no limitations - History of Present Illness Initial Comments: 69-year-old male with chronic history of CAD, COPD, GERD, hypertension presents with 3 days of chest pain. Patient reports that he's had no fever or chills. He states that he called his hog counter and told to come in here. Patient has had a history of coronary artery bypass surgery, cardiac cath with stents, prostate surgery, and prostatectomy. Patient is not had any nitro prior to arrival. He reports that his pain is a 8 out of 10. ports that feels like a pressure over his left sinus chest, and also describes it as a burning sensation. he denies any exacerbating factors. He reports that the pain is the same at resting as it is with exertion. He reports that his hog counter switched him on a recent medication, he is unsure exactly what this could be.Patient denies any recent fever, chills, shortness of breath, back pain, abdominal pain, nausea vomiting, numbness or tingling, dysuria or hematuria, constipation or diarrhea, headaches or visual changes, or any other current symptoms - Related Data Home Medications Medication Instructions Recorded Confirmed ALPRAZolam [Xanax] 0.5 mg PO QID PRN 06/28/15 07/22/17 Acetaminophen Tab [Tylenol] 1,000 mg PO TID PRN 06/28/15 07/22/17 Donepezil [Aricept] 10 mg PO DAILY 06/28/15 07/22/17 Venlafaxine HCl [Effexor] 37.5 mg PO BID 06/28/15 07/22/17 rOPINIRole HCL [Requip] 1 mg PO HS 06/28/15 07/22/17 Atorvastatin Calcium [Lipitor] 80 mg PO HS 10/26/16 07/22/17 Clopidogrel Bisulfate [Plavix] 75 mg PO DAILY 07/22/17 07/22/17 Diltiazem HCl 30 mg PO BID 07/22/17 07/22/17 Ibuprofen [Motrin] 200 - 400 mg PO Q6HR PRN 07/22/17 07/22/17 Isosorbide Mononitrate ER [Imdur] 30 mg PO DAILY 07/22/17 07/22/17 Losartan [Cozaar] 25 mg PO DAILY 07/22/17 07/22/17 Meloxicam [Mobic] 15 mg PO DAILY 07/22/17 07/22/17 Metoprolol Succinate (ER) [Toprol 50 mg PO DAILY 07/22/17 07/22/17 Xl] Temazepam [Restoril] 30 mg PO HS 07/22/17 07/22/17 Previous Rx's Medication Instructions Recorded Aspirin 81 mg PO DAILY #1 chewable 10/28/16 Allergies Allergy/AdvReac Type Severity Reaction Status Date / Time No Known Allergies Allergy Verified 07/22/17 16:21 Review of Systems ROS Statement: Those systems with pertinent positive or pertinent negative responses have been documented in the HPI. ROS Other: All systems not noted in ROS Statement are negative. Past Medical History Past Medical History: Coronary Artery Disease (CAD), Cancer, COPD, Dementia, GERD/Reflux, Hyperlipidemia, Hypertension, Memory Impairment, Myocardial Infarction ([place]), Osteoarthritis (OA), Pneumonia Additional Past Medical History / Comment(s): PER PAST MEDICAL(2011) RECORD PT STATED" 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 SEVERAL NC'S, BRONCHITIS, DIVERTICULAR DISEASE,CHRONIC BACK PAIN , PROSTATE CA(HAD SX) Last Myocardial Infarction Date:: UNK History of Any Multi-Drug Resistant Organisms: None Reported Past Surgical History: Coronary Bypass/CABG, Heart Catheterization With Stent, Prostate Surgery, Tonsillectomy Additional Past Surgical History / Comment(s): CABG TRIOLE VESSEL IN 1988 CABG [id number] IN 1999, THUMB CUT OFF HAD SX TO REATTATCH, COLONOSCOPY, PROSTATECTOMY , RUPTURED ACHILLIES TENDON REPAIR. Past Anesthesia/Blood Transfusion Reactions: No Reported Reaction Date of Last Stent Placement:: UNK Past Psychological History: Anxiety, Depression Smoking Status: Former smoker Past Alcohol Use History: None Reported Past Drug Use History: None Reported - Past Family History Father Family Medical History: Coronary Artery Disease (CAD), CVA/TIA Additional Family Medical History / Comment(s): CABG AND VALVE SX Mother Family Medical History: Dementia, Hypertension Additional Family Medical History / Comment(s): MOM IS ALIVE AT 97 YEARS OLD, LIVING IN [facility] General Exam - General Exam Comments Initial Comments: This is a 77-year-old male. is on appear to be in any acute distress. Limitations: no limitations General appearance: alert, in no apparent distress Head exam: Present: atraumatic, normocephalic, normal inspection Eye exam: Present: normal appearance, PERRL, EOMI. Absent: scleral icterus, conjunctival injection, periorbital swelling ENT exam: Present: normal exam, mucous membranes moist Neck exam: Present: normal inspection. Absent: tenderness, meningismus, lymphadenopathy Respiratory exam: Present: normal lung sounds bilaterally, other (evidence of CABG surgery, well healed incision over the chest.). Absent: respiratory distress, wheezes, rales, rhonchi, stridor Cardiovascular Exam: Present: regular rate, normal rhythm, normal heart sounds. Absent: systolic murmur, diastolic murmur, rubs, gallop, clicks GI/Abdominal exam: Present: soft, normal bowel sounds. Absent: distended, tenderness, guarding, rebound, rigid Extremities exam: Present: normal inspection, full ROM, normal capillary refill. Absent: tenderness, pedal edema, joint swelling, calf tenderness Back exam: Present: normal inspection Neurological exam: Present: alert, oriented X3, CN II-XII intact Psychiatric exam: Present: normal affect, normal mood Skin exam: Present: warm, dry, intact, normal color. Absent: rash Course Vital Signs 07/22/17 07/22/17 15:24 16:28 Temperature 98.1 F Pulse Rate 57 L 53 L Respiratory 18 16 Rate Blood Pressure 172/79 156/87 O2 Sat by Pulse 97 98 Oximetry Chest Pain [facility] 77-year-old male with a cardiac history presents with 3 days of chest pain. Patient has a history of coronary artery disease, and CABG. His cry out as Dr. Lazaro. At this time he reports his pain is an 8 out of 10 feels like a heaviness on his chest. Patient was given 1 nitro, reports he had some leaf initially, but his chest pain is now recurred. Patient initial troponin is negative. EKG does show some ST-T wave abnormality in the anterior lateral leads. At this time I'll put the patient on a heparin drip, and patient will be admitted for cardiac observation. Patient agrees to admission. Discussed case with Dr. Bray. He discussed with patient PCP, Dr. Haidar. Trent will be admitted to Dr. Durant. Patient will be admitted at this time. chest x-ray was reviewed, Very small posterior pleural effusion. Chest is otherwise unremarkable. Disposition Clinical Impression: Chest pain, Pleural effusion, Unstable angina pectoris, COPD (chronic obstructive pulmonary disease) Disposition: ADMITTED IP TO THIS HOSP Condition: Stable Referrals: Alexandrea Gamino MD [Primary Care Provider] - 1-2 days Time of Disposition: 17:59
[2017-07-22 16:10] LABS: Basophils % (A) 1 %; Eosinophils # (A) 0.1 k/uL (0-0.7); Eosinophils % (A) 1 %; HCT 52.2 % (39.0-53.0); HGB 16.8 gm/dL (13.0-17.5); Lymphocytes # (A) 1.4 k/uL (1.0-4.8); Lymphocytes % (A) 22 %; MCH 30.4 pg (25.0-35.0); MCHC 32.3 g/dL (31.0-37.0); MCV 94.3 fL (80.0-100.0); Mean Platelet Volume 8.1; Monocytes # (A) 0.4 k/uL (0-1.0); Monocytes % (A) 7 %; Neutrophils # (A) 4.5 k/uL (1.3-7.7); Neutrophils % (A) 69 %; Platelet Count 183 k/uL (150-450); RBC 5.53 m/uL (4.30-5.90); RDW 13.4 % (11.5-15.5); WBC 6.5 k/uL (3.8-10.6)
[2017-07-22 16:17] LABS: ALT 45 U/L (21-72); AST 39 U/L (17-59); Albumin 4.8 g/dL (3.5-5.0); Alkaline Phosphatase 100 U/L (38-126); Anion Gap 13 mmol/L; Blood Urea Nitrogen 17 mg/dL (9-20); Calcium 10.3 mg/dL (8.4-10.2); Carbon Dioxide 26 mmol/L (22-30); Chloride 101 mmol/L (98-107); Glucose 126 mg/dL (74-99); Potassium 4.5 mmol/L (3.5-5.1); Sodium 140 mmol/L (137-145); Total Bilirubin 0.8 mg/dL (0.2-1.3); Total Protein 7.4 g/dL (6.3-8.2)
[2017-07-22 16:21] LABS: Creatine Kinase 60 U/L (55-170)
[2017-07-22 16:22] LABS: Partial Thromboplastin Time 23.9 sec (22.0-30.0); Prothrombin Time 10.2 sec (9.0-12.0)
[2017-07-22 16:33] LABS: Creatine Kinase MB 1.3 ng/mL (0.0-2.4); Troponin I <0.012 ng/mL (0.000-0.034)
--- NOTE | 2017-07-22 16:44 | XR ---
EXAMINATION TYPE: XR chest 2V DATE OF EXAM: 07/22/2017 COMPARISON: 10/26/2016 INDICATION: Chest pain, COPD TECHNIQUE: Frontal and lateral views of the chest are obtained. FINDINGS: The heart size is normal. The pulmonary vasculature is normal. The lungs are clear. Sternotomy wires are present from previous CABG. There may be some minimal post erior blunting of the costophrenic angle. A very small posterior pleural effusion is not excluded. IMPRESSION: 1. Very small posterior pleural effusion. 2. Chest is otherwise unremarkable.
[2017-07-22] MEDS ORDERED: MAG HYDROX/AL HYDROX/SIMETH 30 ML, HYOSCYAMINE ELIXIR 10 ML, CIMETIDINE HCL 300 MG PO STA ×3 (17:27)
[2017-07-22] MEDS ORDERED: MORPHINE SULFATE 5 MG/ML SYRINGE IVP STA (17:28)
[2017-07-22] MEDS ORDERED: HEPARIN SODIUM,PORCINE 5,000 UNIT/ML 1 ML VIAL IV ONE (18:01)
[2017-07-22] MEDS ORDERED: NITROGLYCERIN SL TABS 0.4 MG TAB SUBLINGUAL PRN (18:01)
[2017-07-22] MEDS ORDERED: ALPRAZolam 0.5 MG TAB PO PRN (18:05)
[2017-07-22] MEDS ORDERED: ACETAMINOPHEN TAB 500 MG TAB PO PRN (18:05)
[2017-07-22] MEDS ORDERED: HEPARIN SOD,PORK IN 0.45% NACL 25,000 UNIT in 0.45% NACL 1 500ML.BAG IV SCH (18:15)
[2017-07-22] MEDS: SODIUM CHLORIDE 0.9% 1,000 ML IV SCH (18:17)
[2017-07-22 18:41] VITALS: RESP 18
[2017-07-22 20:26] VITALS: BMI 25.1
[2017-07-22] MEDS: VENLAFAXINE HCL 37.5 MG TAB PO SCH (20:30)
[2017-07-22] MEDS ORDERED: MORPHINE SULFATE 5 MG/ML SYRINGE IVP PRN (20:47)
[2017-07-22] MEDS ORDERED: IBUPROFEN 600 MG TAB PO PRN (20:48)
[2017-07-22] MEDS ORDERED: TEMAZEPAM 30 MG CAP PO SCH (21:00)
[2017-07-22] MEDS ORDERED: ATORVASTATIN 80 MG TAB PO SCH (21:00)
[2017-07-22] MEDS ORDERED: DILTIAZEM ORAL 30 MG TAB PO SCH (21:00)
[2017-07-22 22:46] LABS: Creatine Kinase 44 U/L (55-170)
[2017-07-22 22:59] LABS: Creatine Kinase MB 1.1 ng/mL (0.0-2.4); Troponin I <0.012 ng/mL (0.000-0.034)
[2017-07-23 04:59] LABS: Creatine Kinase 45 U/L (55-170)
[2017-07-23 05:11] LABS: Creatine Kinase MB 1.1 ng/mL (0.0-2.4); Troponin I <0.012 ng/mL (0.000-0.034)
[2017-07-23] MEDS: SODIUM CHLORIDE 0.9% 1,000 ML IV SCH (06:19)
[2017-07-23 07:12] LABS: Mean Platelet Volume 8.3; Platelet Count 149 k/uL (150-450)
[2017-07-23 07:33] LABS: Cholesterol 125 mg/dL (<200); HDL Cholesterol 52 mg/dL (40-60); LDL Cholesterol,Calculated 58 mg/dL (0-99); Triglycerides 74 mg/dL (<150)
[2017-07-23] MEDS ORDERED: DONEPEZIL 10 MG TAB PO SCH (09:00)
[2017-07-23] MEDS ORDERED: ASPIRIN 325 MG TAB PO SCH (09:00)
[2017-07-23] MEDS ORDERED: LOSARTAN 25 MG TAB PO SCH (09:00)
[2017-07-23] MEDS ORDERED: ISOSORBIDE MONONITRATE ER 30 MG TAB.ER.24H PO SCH (09:00)
[2017-07-23] MEDS ORDERED: METOPROLOL SUCCINATE (ER) 50 MG TAB.ER.24H PO SCH (09:00)
[2017-07-23] MEDS ORDERED: ASPIRIN 81 MG PO SCH ×2 (09:00)
[2017-07-23] MEDS: VENLAFAXINE HCL 37.5 MG TAB PO SCH (10:39)
--- NOTE | 2017-07-23 11:08 | P.CRDCN ---
History of Present Illness Consult date: 07/23/17 History of present illness: Mr. Garcia is a pleasant 77-year-old male with past medical history significant for coronary artery disease s/p CABG, ischemic cardiomyopathy, hypertension, dyslipidemia and chronic systolic heart failure with ejection fraction 35%. He follows regularly with Dr. Pfeiffer as an outpatient. We have been asked to see him in consultation for complaints of chest discomfort, dizziness and generalized weakness. He recently saw Dr. Pfeiffer in the office and his medications were adjusted to optimize his heart function. Cardizem and plavix were discontinued, toprol and losartan were added and imdur was decreased. He called the office last week with complaints of dizziness and weakness and his losartan was decreased in half. He states even with the change he continues to feel weak and dizzy. At the time of my exam he complains of achy sensation across his chest and b/l arms like he is coming down with a viral syndrome. He states he started taking his cardizem over the last couple days to see if it made him feel better. He denies chest pain with exertion and states over the past few years he has only noticed chest discomfort a couple times and it is very intermittent and short lasting. For this reason imdur can be discontinued completely. EKG on arrival reveals sinus bradycardia with heart rate [address]/ T-wave abnormalities. These are consistent with old EKG's. Chest xray is negative for acute cardiopulmonary process. Most recent echocardiogram reveals decreased LV function with EF 35%. Most recent Lexiscan performed 05/2017 is negative for reversible cardiac ischemia. Most recent cath done 02/2011 revealed DAI-LAD patent, radial-intermediate patent, LCX closed, RCA 50% stenosis. Most recent holter monitor 05/2017 shows heart rate ranging from 43-113 with average 63. No pauses, midly prolonged OK, occasional intermittent AV node wenkebach block and infrequent PVC's. Laboratory data reviewed, hgb 16.8, plt 149, potassium 4.5, magnesium 2.0, cardiac enzymes negative x3, LDL 58, HDL 52. Current cardiac medications include aspirin 81 mg twice a day, atorvastatin 80 mg, Imdur 30 mg, losartan 25 mg daily, Toprol 50 mg daily, and sublingual nitroglycerin when necessary. Review of Systems CONSTITUTIONAL: Denies fever. Denies chills. EYES: Denies blurred vision. Denies vision changes. Denies eye pain. EARS, NOSE, MOUTH & THROAT: Denies headache. Denies sore throat. Denies ear pain. CARDIOVASCULAR: Denies chest pain. Denies shortness of breath. Denies orthopnea. Denies PND. Denies palpitations. RESPIRATORY: Denies cough. GASTROINTESTINAL: Denies abdominal pain. Denies diarrhea. Denies constipation. Denies nausea. Denies vomiting. MUSCULOSKELETAL: Complains of generalized achiness.. INTEGUMENTARY: Denies pruitis. Denies rash. NEUROLOGIC: Denies numbness. Denies tingling. Complains of weakness and dizziness. PSYCHIATRIC: Denies anxiety. Denies depression. ENDOCRINE: Complains of fatigue. Denies weight change. Denies polydipsia. Denies polyurina. GENITOURINARY: Denies burning, hematuria or urgency with micturation. HEMATOLOGIC: Denies history of anemia. Denies bleeding. 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 SEVERAL OH'S, BRONCHITIS, DIVERTICULAR DISEASE,CHRONIC BACK PAIN , PROSTATE CA(HAD SX) Last Myocardial Infarction Date:: UNK History of Any Multi-Drug Resistant Organisms: None Reported Past Surgical History: Coronary Bypass/CABG, Heart Catheterization With Stent, Prostate Surgery, Tonsillectomy Additional Past Surgical History / Comment(s): CABG TRIOLE VESSEL IN 1988 CABG [id number] IN 1999, THUMB CUT OFF HAD SX TO REATTATCH, COLONOSCOPY, PROSTATECTOMY , RUPTURED ACHILLIES TENDON REPAIR. 5 stents Past Anesthesia/Blood Transfusion Reactions: No Reported Reaction Date of Last Stent Placement:: UNK Smoking Status: Former smoker - Past Family History Father Family Medical History: Coronary Artery Disease (CAD), CVA/TIA Additional Family Medical History / Comment(s): CABG AND VALVE SX Mother Family Medical History: Dementia, Hypertension Additional Family Medical History / Comment(s): MOM IS ALIVE AT 97 YEARS OLD, L[facility]ING IN [facility] Medications and Allergies Home Medications Medication Instructions Recorded Confirmed Type ALPRAZolam [Xanax] 0.5 mg PO QID PRN 06/28/15 07/22/17 History Acetaminophen Tab [Tylenol] 1,000 mg PO TID PRN 06/28/15 07/22/17 History Donepezil [Aricept] 10 mg PO DAILY 06/28/15 07/22/17 History Venlafaxine HCl [Effexor] 37.5 mg PO BID 06/28/15 07/22/17 History rOPINIRole HCL [Requip] 1 mg PO HS 06/28/15 07/22/17 History Atorvastatin Calcium [Lipitor] 80 mg PO HS 10/26/16 07/22/17 History Aspirin 81 mg PO DAILY #1 chewable 10/28/16 07/22/17 Rx Clopidogrel Bisulfate [Plavix] 75 mg PO DAILY 07/22/17 07/22/17 History Diltiazem HCl 30 mg PO BID 07/22/17 07/22/17 History Ibuprofen [Motrin] 200 - 400 mg PO Q6HR PRN 07/22/17 07/22/17 History Isosorbide Mononitrate ER [Imdur] 30 mg PO DAILY 07/22/17 07/22/17 History Losartan [Cozaar] 25 mg PO DAILY 07/22/17 07/22/17 History Meloxicam [Mobic] 15 mg PO DAILY 07/22/17 07/22/17 History Metoprolol Succinate (ER) [Toprol 50 mg PO DAILY 07/22/17 07/22/17 History Xl] Temazepam [Restoril] 30 mg PO HS 07/22/17 07/22/17 History Allergies Allergy/AdvReac Type Severity Reaction Status Date / Time No Known Allergies Allergy Verified 07/22/17 20:13 Physical Exam Vitals: Vital Signs Temp Pulse Pulse Resp BP BP Pulse Ox 07/23/17 08:00 97.7 F 80 18 151/78 97 07/23/17 04:00 98.1 F 58 L 18 137/72 98 07/23/17 00:00 97.9 F 56 L 18 146/82 97 07/22/17 19:10 98.2 F 52 L 18 163/77 96 07/22/17 18:40 97.9 F 54 L 18 172/77 97 07/22/17 17:59 57 L 16 170/80 96 07/22/17 16:28 53 L 16 156/87 98 07/22/17 15:24 98.1 F 57 L 18 172/79 97 Intake and Output 07/22/17 07/23/17 07/23/17 22:59 06:59 14:59 Output Total 550 Balance -550 Output: Urine 550 Other: Voiding Method Urinal # Voids 1 1 Weight 74.9 kg Blood pressure 151/78 with a heart rate of 80 GENERAL: This is a 77-year-old male in no apparent distress at the time of my examination. HEENT: Head is atraumatic, normocephalic. Pupils are equal, round. Sclerae anicteric. Conjunctivae are clear. Mucous membranes of the mouth are moist. Neck is supple. There is no jugular venous distention. No carotid bruit is heard. LUNGS: Clear to auscultation no wheezes, rales or rhonchi. No chest wall tenderness is noted on palpation or with deep breathing. HEART: Regular rate and rhythm without murmurs, rubs or gallops. S1 and S2 heard. ABDOMEN: Soft, nontender. Bowel sounds are heard. No organomegaly noted. EXTREMITIES: 2+ peripheral pulses with no evidence of peripheral edema and no calf tenderness noted. NEUROLOGIC: Patient is awake, alert and oriented x3. Results 07/23/17 06:16 07/22/17 16:00 Cardiac Enzymes 07/22/17 07/22/17 07/22/17 Range/Units 16:00 16:00 22:02 AST 39 (17-59) U/L CK-MB (CK-2) 1.3 1.1 (0.0-2.4) ng/mL Troponin I <0.012 <0.012 (0.000-0.034) ng/mL 07/23/17 Range/Units 03:33 AST (17-59) U/L CK-MB (CK-2) 1.1 (0.0-2.4) ng/mL Troponin I <0.012 (0.000-0.034) ng/mL Coagulation 07/22/17 07/22/17 07/23/17 Range/Units 16:00 22:02 06:16 PT 10.2 (9.0-12.0) sec APTT 23.9 69.6 H 48.8 H (22.0-30.0) sec Lipids 07/23/17 Range/Units 06:16 Triglycerides 74 (<150) mg/dL Cholesterol 125 (<200) mg/dL HDL Cholesterol 52 (40-60) mg/dL CBC 07/22/17 07/23/17 Range/Units 16:00 06:16 WBC 6.5 (3.8-10.6) k/uL RBC 5.53 (4.30-5.90) m/uL Hgb 16.8 (13.0-17.5) gm/dL Hct 52.2 (39.0-53.0) % Plt Count 183 149 L (150-450) k/uL Comprehensive Metabolic Panel 07/22/17 Range/Units 16:00 Sodium 140 (137-145) mmol/L Potassium 4.5 (3.5-5.1) mmol/L Chloride 101 (98-107) mmol/L Carbon Dioxide 26 (22-30) mmol/L BUN 17 (9-20) mg/dL Creatinine 0.74 (0.66-1.25) mg/dL Glucose 126 H (74-99) mg/dL Calcium 10.3 H (8.4-10.2) mg/dL AST 39 (17-59) U/L ALT 45 (21-72) U/L Alkaline Phosphatase 100 (38-126) U/L Total Protein 7.4 (6.3-8.2) g/dL Albumin 4.8 (3.5-5.0) g/dL Current Medications Generic Name Dose Route Start Last Admin Trade Name Freq PRN Reason Stop Dose Admin Acetaminophen 1,000 mg 07/22/17 18:05 Tylenol Tab PO TID PRN Pain Alprazolam 0.5 mg 07/22/17 18:05 07/22/17 20:32 Xanax PO 0.5 mg QID PRN Administration Anxiety Aspirin 81 mg 07/23/17 09:00 Aspirin PO BID RICHARD Atorvastatin Calcium 80 mg 07/22/17 21:00 07/22/17 20:30 Lipitor PO 80 mg HS RICHARD Administration Donepezil HCl 10 mg 07/23/17 09:00 Aricept PO DAILY RICHARD Sodium Chloride 1,000 mls @ 100 mls/hr 07/22/17 16:45 07/23/17 06:19 Saline 0.9% IV Not Given .Q10H RICHARD Losartan Potassium 12.5 mg 07/24/17 09:00 Cozaar PO DAILY RICHARD Metoprolol Succinate 12.5 mg 07/24/17 09:00 Toprol Xl PO DAILY RICHARD Nitroglycerin 0.4 mg 07/22/17 18:01 Nitrostat SUBLINGUAL Q5M PRN Chest Pain Ropinirole HCl 1 mg 07/22/17 21:00 07/22/17 20:30 Requip PO 1 mg HS RICHARD Administration Temazepam 30 mg 07/22/17 21:00 07/22/17 20:30 Restoril PO 30 mg HS RICHARD Administration Venlafaxine HCl 37.5 mg 07/22/17 21:00 07/22/17 20:30 Effexor PO 37.5 mg BID RICHARD Administration Intake and Output 07/22/17 07/23/17 07/23/17 22:59 06:59 14:59 Output Total 550 Balance -550 Output: Urine 550 Other: Voiding Method Urinal # Voids 1 1 Weight 74.9 kg 07/23/17 06:16 07/22/17 16:00 Assessment and Plan Assessment: ASSESSMENT 1. Chest pain, atypical with dizziness, generalized weakness and nausea. 2. Ischemic cardiomyopathy 3. History of bypass grafting 4. History of coronary artery disease 5. Chronic systolic heart failure with ejection fraction 35%, currently compensated 6. Dyslipidemia PLAN Losartan will be decreased by half as well as toprol. Imdur can be discontinued completely with SL NTG for PRN exertional chest pain. Again he was advised to stop taking plavix and diltiazem. This plan has been discussed with the patient in detail and he is agreeable. All new prescriptions will be sent to our pharmacy and dispensed prior to discharge. Follow-up with Dr. Pfeiffer in 2 weeks for evaluation of medication changes. He is advised to call the office with any concerns after going home. The above impression and plan of care have been discussed and directed by the signing physician. Sahra Pulido, nurse practitioner, acting as scribe for signing physician.
[2017-07-23 11:44] VITALS: BP 122/66; PULSE 60; TEMP 98.3
--- NOTE | 2017-07-23 15:55 | P.CNPUL ---
History of Present Illness Consult date: 07/23/17 Requesting physician: Aminta Durant Reason for consult: chest pain Chief complaint: Chest pain, dizziness, weakness, headache, palpitations History of present illness: Prateek is a 77-year-old white male patient who follows with Dr. Gamino for primary care services, presented to the emergency department on 07/22/2017 at 1500 with complaints of 3 day history of burning chest pain over left upper chest area, rating it 8 out of 10, described as burning. He denied radiation to his arm or neck or back. Chest pain did not change with exertion, was not accompanied by shortness of breath. He had a recent medication change, he saw Dr. Pfeiffer who started him on Toprol and losartan for his history of cardiomyopathy with EF of 35%. After he started taking it he started experiencing increased lightheadedness, dizziness, weakness, headaches, palpitations. When he called the cardiology office with those complaints, he was told to reduce the dose of losartan in half. But even with that change his symptoms did not improve, and he ended up, to the hospital for further evaluation and treatment. His twelve-lead EKG on arrival revealed sinus bradycardia with a rate of [address]/T-wave abnormalities in the anterior leads, however these were consistent with his previous EKGs. Chest x- ray was negative for any acute cardiopulmonary process. His serial troponins were negative 3. His vital signs are stable, patient is afebrile, he is on room air with O2 sat between 94-97%. Patient is resting comfortably in bed, his chest pain seems to be atypical in nature, reproducible, it is increased with palpation in the left upper chest area. He was seen by cardiology who made further changes to his doses of losartan and metoprolol, dose doses were cut in half. He was advised to stop taking Plavix and diltiazem, Imdur was discontinued as well, patient was given sublingual nitro for when necessary exertional chest pain. He was cleared for discharge home today. He never did complain of any dyspnea, or any other acute pulmonary complaints, no fever, no chills, no chest congestion or wheezing. Review of Systems All systems: negative Constitutional: Denies chills, Denies fever Eyes: denies blurred vision, denies pain Ears, nose, mouth and throat: Denies headache, Denies sore throat Cardiovascular: Denies chest pain, Denies shortness of breath Respiratory: Denies cough Gastrointestinal: Denies abdominal pain, Denies diarrhea, Denies nausea, Denies vomiting Musculoskeletal: Denies myalgias Integumentary: Denies pruritus, Denies rash Neurological: Denies numbness, Denies weakness Psychiatric: Denies anxiety, Denies depression Endocrine: Denies fatigue, Denies weight change Past Medical History Past Medical History: Coronary Artery Disease (CAD), Cancer, Chest Pain / Angina , COPD, Dementia, GERD/Reflux, Hyperlipidemia, Hypertension, Memory Impairment, Myocardial Infarction ([place]), Osteoarthritis (OA), Pneumonia Additional Past Medical History / Comment(s): PER PAST MEDICAL(2011) RECORD PT STATED" 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 SEVERAL FL'S, BRONCHITIS, DIVERTICULAR DISEASE,CHRONIC BACK PAIN , PROSTATE CA(HAD SX) Last Myocardial Infarction Date:: UNK History of Any Multi-Drug Resistant Organisms: None Reported Past Surgical History: Coronary Bypass/CABG, Heart Catheterization With Stent, Prostate Surgery, Tonsillectomy Additional Past Surgical History / Comment(s): CABG TRIOLE VESSEL IN 1988 CABG [id number] IN 1999, THUMB CUT OFF HAD SX TO REATTATCH, COLONOSCOPY, PROSTATECTOMY , RUPTURED ACHILLIES TENDON REPAIR. 5 stents Past Anesthesia/Blood Transfusion Reactions: No Reported Reaction Date of Last Stent Placement:: UNK Smoking Status: Former smoker - Past Family History Father Family Medical History: Coronary Artery Disease (CAD), CVA/TIA Additional Family Medical History / Comment(s): CABG AND VALVE SX Mother Family Medical History: Dementia, Hypertension Additional Family Medical History / Comment(s): MOM IS ALIVE AT 97 YEARS OLD, [facility] IN [facility] Medications and Allergies Home Medications Medication Instructions Recorded Confirmed Type ALPRAZolam [Xanax] 0.5 mg PO QID PRN 06/28/15 07/22/17 History Acetaminophen Tab [Tylenol] 1,000 mg PO TID PRN 06/28/15 07/22/17 History Donepezil [Aricept] 10 mg PO DAILY 06/28/15 07/22/17 History Venlafaxine HCl [Effexor] 37.5 mg PO BID 06/28/15 07/22/17 History rOPINIRole HCL [Requip] 1 mg PO HS 06/28/15 07/22/17 History Atorvastatin Calcium [Lipitor] 80 mg PO HS 10/26/16 07/22/17 History Aspirin 81 mg PO DAILY #1 chewable 10/28/16 07/22/17 Rx Meloxicam [Mobic] 15 mg PO DAILY 07/22/17 07/22/17 History Temazepam [Restoril] 30 mg PO HS 07/22/17 07/22/17 History Aspirin 81 mg PO BID chew 07/23/17 Rx Losartan [Cozaar] 12.5 mg PO DAILY #30 tab 07/23/17 Rx Metoprolol Succinate (ER) [Toprol 12.5 mg PO DAILY #30 tab.er.24h 07/23/17 Rx XL] Nitroglycerin Sl Tabs [Nitrostat] 0.4 mg SUBLINGUAL Q5M PRN tab 07/23/17 Rx Allergies Allergy/AdvReac Type Severity Reaction Status Date / Time No Known Allergies Allergy Verified 07/22/17 20:13 Physical Exam Vitals: Vital Signs Temp Pulse Pulse Resp BP BP BP 07/23/17 11:45 60 18 07/23/17 11:43 98.3 F 60 18 122/66 07/23/17 08:00 97.7 F 80 18 151/78 07/23/17 04:00 98.1 F 58 L 18 137/72 07/23/17 00:00 97.9 F 56 L 18 146/82 07/22/17 19:10 98.2 F 52 L 18 163/77 07/22/17 18:40 97.9 F 54 L 18 172/77 07/22/17 17:59 57 L 16 170/80 07/22/17 16:28 53 L 16 156/87 Pulse Ox 07/23/17 11:45 07/23/17 11:43 94 L 07/23/17 08:00 97 07/23/17 04:00 98 07/23/17 00:00 97 07/22/17 19:10 96 07/22/17 18:40 97 07/22/17 17:59 96 07/22/17 16:28 98 Intake and Output 07/23/17 07/23/17 07/23/17 06:59 14:59 22:59 Intake Total 420 Output Total 550 Balance -130 Intake: Oral 420 Output: Urine 550 Other: Voiding Method Urinal # Voids 1 3 GENERAL EXAM: Alert, pleasant 77-year-old white male, comfortable in no apparent distress. HEAD: Normocephalic/atraumatic. EYES: Normal reaction of pupils, equal size. Conjunctiva pink, sclera white. NOSE: Clear with pink turbinates. THROAT: No erythema or exudates. NECK: No masses, no JVD, no thyroid enlargement, no adenopathy. CHEST: No chest wall deformity. Symmetrical expansion. Left upper chest wall tenderness, exacerbated by palpation LUNGS: Equal air entry with no crackles, wheeze, rhonchi or dullness. CVS: Regular rate and rhythm, normal S1 and S2, no gallops, no murmurs, no rubs ABDOMEN: Soft, nontender. No hepatosplenomegaly, normal bowel sounds, no guarding or rigidity. EXTREMITIES: No clubbing, no edema, no cyanosis, 2+ pulses and upper and lower extremities. MUSCULOSKELETAL: Muscle strength and tone normal. SPINE: No scoliosis or deformity SKIN: No rashes CENTRAL NERVOUS SYSTEM: Alert and oriented -3. No focal deficits, tone is normal in all 4 extremities. PSYCHIATRIC: Alert and oriented -3. Appropriate affect. Intact judgment and insight. Results - Laboratory Findings CBC and BMP: 07/23/17 06:16 07/22/17 16:00 PT/INR, D-dimer PT 10.2 sec (9.0-12.0) 07/22/17 16:00 INR 1.0 (<1.2) 07/22/17 16:00 Abnormal lab findings: Abnormal Labs 07/22/17 07/22/17 07/22/17 16:00 22:02 22:02 Plt Count APTT 69.6 H Glucose 126 H Calcium 10.3 H Total Creatine Kinase 44 L 07/23/17 07/23/17 07/23/17 03:33 06:16 06:16 Plt Count 149 L APTT 48.8 H Glucose Calcium Total Creatine Kinase 45 L - Diagnostic Findings Chest x-ray: report reviewed Additional studies: Twelve-lead EKG Assessment and Plan Plan: Assessment: #1. Atypical chest pain, reproducible to palpation. Accompanied by dizziness, lightheadedness, generalized weakness, headaches, palpitations. Preceded by medication change, initiation of Toprol and losartan #2. History of ischemic cardiomyopathy, EF of 30-35% #3. Coronary artery disease, with history of coronary artery bypass grafting 2 , PCI and stenting #4. History of COPD, with no sign of exacerbation #5. Hypertension #6. Dyslipidemia #7. Dementia #8. Osteoarthritis #9. History of nicotine dependence, currently in remission Plan: Patient still has mild reproducible left upper chest wall pain. His troponins were negative 3, there are no new EKG changes. Cardiology has made further adjustments to his medications, cut the doses of losartan and Toprol in half. Patient will follow-up with Dr. Pfeiffer. Follow-up with Dr. Morales in the office, patient was told to bring all medications to the appointment. I performed a history & physical examination of the patient and discussed their management with my nurse practitioner, Deepika Bravo. I reviewed the nurse practitioner's note and agree with the documented findings and plan of care. Lung sounds are clear. The findings and the impression was discussed with the patient. I attest to the documentation by the nurse practitioner. Time with Patient: Greater than 30
--- NOTE | 2017-07-23 18:17 | P.HPIM ---
History of Present Illness Patient is a pleasant 71-year-old gentleman came in with complaints of burning chest pain not related to food 8 x 10 in severity nonradiating patient was evaluated by cardiology rule out acute coronary syndromes patient was cleared for discharge from their perspective patient had a recent stress test about a month ago which was negative. Patient had poor ejection fraction of around 35% not in heart failure exacerbation patient although has some left-sided pleural effusion appears to be chronic. Patient was evaluated by pulmonology as well and patient had serial troponins that were negative. Patient's chest pain is nonpleuritic in nature patient is on 2 nonsteroidal anti-inflammatory switch will be discontinued and patient will be discharged on Prilosec. Patient's chest pain improved significantly no more pain whatsoever Review of Systems REVIEW OF SYSTEMS: CONSTITUTIONAL: No fever, no malaise, no fatigue. HEENT: No recent visual problems or hearing problems. Denied any sore throat. CARDIOVASCULAR: No orthopnea, PND, no palpitations, no syncope. PULMONARY: No shortness of breath, no cough, no hemoptysis. GASTROINTESTINAL: No diarrhea, no nausea, no vomiting, no abdominal pain. Normoactive bowel sounds. NEUROLOGICAL: No headaches, no weakness, no numbness. HEMATOLOGICAL: Denies any bleeding or petechiae. GENITOURINARY: Denies any burning micturition, frequency, or urgency. MUSCULOSKELETAL/RHEUMATOLOGICAL: Denies any joint pain, swelling, or any muscle pain. ENDOCRINE: Denies any polyuria or polydipsia. The rest of the 14-point review of systems is negative. 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 SEVERAL CT'S, BRONCHITIS, DIVERTICULAR DISEASE,CHRONIC BACK PAIN , PROSTATE CA(HAD SX) Last Myocardial Infarction Date:: UNK History of Any Multi-Drug Resistant Organisms: None Reported Past Surgical History: Coronary Bypass/CABG, Heart Catheterization With Stent, Prostate Surgery, Tonsillectomy Additional Past Surgical History / Comment(s): CABG TRIOLE VESSEL IN 1988 CABG [id number] IN 1999, THUMB CUT OFF HAD SX TO REATTATCH, COLONOSCOPY, PROSTATECTOMY , RUPTURED ACHILLIES TENDON REPAIR. 5 stents Past Anesthesia/Blood Transfusion Reactions: No Reported Reaction Date of Last Stent Placement:: UNK Smoking Status: Former smoker - Past Family History Father Family Medical History: Coronary Artery Disease (CAD), CVA/TIA Additional Family Medical History / Comment(s): CABG AND VALVE SX Mother Family Medical History: Dementia, Hypertension Additional Family Medical History / Comment(s): MOM IS ALIVE AT 97 YEARS OLD, LIVING IN [facility] Medications and Allergies Home Medications Medication Instructions Recorded Confirmed Type ALPRAZolam [Xanax] 0.5 mg PO QID PRN 06/28/15 07/22/17 History Acetaminophen Tab [Tylenol] 1,000 mg PO TID PRN 06/28/15 07/22/17 History Donepezil [Aricept] 10 mg PO DAILY 06/28/15 07/22/17 History Venlafaxine HCl [Effexor] 37.5 mg PO BID 06/28/15 07/22/17 History rOPINIRole HCL [Requip] 1 mg PO HS 06/28/15 07/22/17 History Atorvastatin Calcium [Lipitor] 80 mg PO HS 10/26/16 07/22/17 History Aspirin 81 mg PO DAILY #1 chewable 10/28/16 07/22/17 Rx Temazepam [Restoril] 30 mg PO HS 07/22/17 07/22/17 History Aspirin 81 mg PO BID chew 07/23/17 Rx Losartan [Cozaar] 12.5 mg PO DAILY #30 tab 07/23/17 Rx Metoprolol Succinate (ER) [Toprol 12.5 mg PO DAILY #30 tab.er.24h 07/23/17 Rx XL] Nitroglycerin Sl Tabs [Nitrostat] 0.4 mg SUBLINGUAL Q5M PRN tab 07/23/17 Rx Omeprazole [PriLOSEC] 40 mg PO AC-BRKFST #14 capsule.dr 07/23/17 Rx Allergies Allergy/AdvReac Type Severity Reaction Status Date / Time No Known Allergies Allergy Verified 07/22/17 20:13 Physical Exam Vitals: Vital Signs Temp Pulse Pulse Resp BP BP BP 07/23/17 11:45 60 18 07/23/17 11:43 98.3 F 60 18 122/66 07/23/17 08:00 97.7 F 80 18 151/78 07/23/17 04:00 98.1 F 58 L 18 137/72 07/23/17 00:00 97.9 F 56 L 18 146/82 07/22/17 19:10 98.2 F 52 L 18 163/77 07/22/17 18:40 97.9 F 54 L 18 172/77 Pulse Ox 07/23/17 11:45 07/23/17 11:43 94 L 07/23/17 08:00 97 07/23/17 04:00 98 07/23/17 00:00 97 07/22/17 19:10 96 07/22/17 18:40 97 Intake and Output 07/23/17 07/23/17 07/23/17 06:59 14:59 22:59 Intake Total 420 Output Total 550 Balance -130 Intake: Oral 420 Output: Urine 550 Other: Voiding Method Urinal # Voids 1 3 PHYSICAL EXAMINATION: GENERAL: The patient is alert and oriented x3, not in any acute distress. Well developed, well nourished. HEENT: Pupils are round and equally reacting to light. EOMI. No scleral icterus. No conjunctival pallor. Normocephalic, atraumatic. No pharyngeal erythema. No thyromegaly. CARDIOVASCULAR: S1 and S2 present. No murmurs, rubs, or gallops. PULMONARY: Chest is clear to auscultation, no wheezing or crackles. ABDOMEN: Soft, nontender, nondistended, normoactive bowel sounds. No palpable organomegaly. MUSCULOSKELETAL: No joint swelling or deformity. EXTREMITIES: No cyanosis, clubbing, or pedal edema. NEUROLOGICAL: Gross neurological examination did not reveal any focal deficits. SKIN: No rashes. Results CBC & Chem 7: 07/23/17 06:16 07/22/17 16:00 Labs: Abnormal Lab Results - Last 24 Hours (Table) 07/22/17 07/22/17 07/23/17 Range/Units 22:02 22:02 03:33 Plt Count (150-450) k/uL APTT 69.6 H (22.0-30.0) sec Total Creatine Kinase 44 L 45 L (55-170) U/L 07/23/17 07/23/17 Range/Units 06:16 06:16 Plt Count 149 L (150-450) k/uL APTT 48.8 H (22.0-30.0) sec Total Creatine Kinase (55-170) U/L Thrombosis Risk Factor Assmnt - Choose All That Apply Each Risk Factor Represents 3 Points: Age 75 years or older Thrombosis Risk Factor Assessment Total Risk Factor Score: 3 Thrombosis Risk Factor Assessment Level: Moderate Risk Assessment and Plan Plan: -Chest pain rule out acute coronary syndromes atypical chest pain rule out unstable angina patient will be discharged today possibly related to gastritis from 2 and nonsteroidal anti-inflammatories is taking at home. Further management as mentioned in the interval history. -Congestive heart failure ischemic cardio myopathy ejection fraction of 30-35% not on Lasix but is on MESFIN inhibitor which will be continued and the patient is not requiring any Lasix and patient is not in any acute exacerbation of CHF -History of COPD without any acute exacerbation at 10-hypertension next and heparin dyslipidemia -Osteoarthritis Patient will be discharged today follow-up with primary care physician and cartilages an outpatient
--- NOTE | 2017-07-23 18:18 | P.DS ---
Providers Date of admission: 07/22/17 17:43 Attending physician: Aminta Durant Consults: 07/22/17 18:01 Consult Physician Urgent Consulting Provider: Shukri Pfeiffer Consult Reason/Comments: Unstable angina Do you want consulting provider notified?: Yes Primary care physician: Alexandrea [facility] Course: Please refer to my HPI Patient Condition at Discharge: Stable Plan - Discharge Summary New Discharge Prescriptions: New Aspirin 81 mg PO BID chew Losartan [Cozaar] 12.5 mg PO DAILY #30 tab Metoprolol Succinate (ER) [Toprol XL] 12.5 mg PO DAILY #30 tab.er.24h Nitroglycerin Sl Tabs [Nitrostat] 0.4 mg SUBLINGUAL Q5M PRN tab PRN Reason: Chest Pain Omeprazole [PriLOSEC] 40 mg PO AC-BRKFST #14 capsule.dr Continue Atorvastatin Calcium [Lipitor] 80 mg PO HS Discontinued Ibuprofen [Motrin] 200 - 400 mg PO Q6HR PRN PRN Reason: Pain Metoprolol Succinate (ER) [Toprol Xl] 50 mg PO DAILY Meloxicam [Mobic] 15 mg PO DAILY Losartan [Cozaar] 25 mg PO DAILY Isosorbide Mononitrate ER [Imdur] 30 mg PO DAILY Diltiazem HCl 30 mg PO BID Clopidogrel Bisulfate [Plavix] 75 mg PO DAILY No Action Venlafaxine HCl [Effexor] 37.5 mg PO BID rOPINIRole HCL [Requip] 1 mg PO HS ALPRAZolam [Xanax] 0.5 mg PO QID PRN PRN Reason: Anxiety Donepezil [Aricept] 10 mg PO DAILY Acetaminophen Tab [Tylenol] 1,000 mg PO TID PRN PRN Reason: Pain Aspirin 81 mg PO DAILY #1 chewable Temazepam [Restoril] 30 mg PO HS Discharge Medication List ALPRAZolam [Xanax] 0.5 mg PO QID PRN 06/28/15 [History] Acetaminophen Tab [Tylenol] 1,000 mg PO TID PRN 06/28/15 [History] Donepezil [Aricept] 10 mg PO DAILY 06/28/15 [History] Venlafaxine HCl [Effexor] 37.5 mg PO BID 06/28/15 [History] rOPINIRole HCL [Requip] 1 mg PO HS 06/28/15 [History] Atorvastatin Calcium [Lipitor] 80 mg PO HS 10/26/16 [History] Aspirin 81 mg PO DAILY #1 chewable 10/28/16 [Rx] Temazepam [Restoril] 30 mg PO HS 07/22/17 [History] Aspirin 81 mg PO BID chew 07/23/17 [Rx] Losartan [Cozaar] 12.5 mg PO DAILY #30 tab 07/23/17 [Rx] Metoprolol Succinate (ER) [Toprol XL] 12.5 mg PO DAILY #30 tab.er.24h 07/23/17 [ Rx] Nitroglycerin Sl Tabs [Nitrostat] 0.4 mg SUBLINGUAL Q5M PRN tab 07/23/17 [Rx] Omeprazole [PriLOSEC] 40 mg PO AC-BRKFST #14 capsule.dr 07/23/17 [Rx] Follow up Appointment(s)/Referral(s): Alexandrea Gamino MD [Primary Care Provider] - 3 Days (Appointment is July 30 @ 1 :30PM) Shukri Pfeiffer MD [STAFF PHYSICIAN] - 2 Weeks ([facility] will call pt with appointment. ) Wallace Rosado DO [Medical Doctor] - 1 Week Discharge Disposition: HOME SELF-CARE
[2017-07-24] MEDS ORDERED: METOPROLOL SUCCINATE (ER) 25 MG TAB.ER.24H PO SCH (09:00)
[2017-07-24] MEDS ORDERED: LOSARTAN 25 MG TAB PO SCH (09:00)
== END 2017-07-23 16:05 | disposition home or self-care (01) ==
LOC: EC 15:18 → 3OBS 17:43
PROVIDERS: ADMIT Hospitalist; ATTEND Hospitalist
DX: R07.89 Other chest pain (principal); R51 Headache; R53.1 Weakness; R42 Dizziness and giddiness; R00.2 Palpitations; J44.9 Chronic obstructive pulmonary disease, unspecified; M19.90 Unspecified osteoarthritis, unspecified site; E78.5 Hyperlipidemia, unspecified; I11.0 Hypertensive heart disease with heart failure; I50.22 Chronic systolic (congestive) heart failure; I25.5 Ischemic cardiomyopathy; Z79.899 Other long term (current) drug therapy; Z79.82 Long term (current) use of aspirin; Z87.891 Personal history of nicotine dependence; Z95.1 Presence of aortocoronary bypass graft; Z95.5 Presence of coronary angioplasty implant and graft; I25.10 Atherosclerotic heart disease of native coronary artery without angina pectoris; F03.90 Unspecified dementia, unspecified severity, without behavioral disturbance, psychotic disturbance, mood disturbance, and anxiety; K21.9 Gastro-esophageal reflux disease without esophagitis; R41.3 Other amnesia; I25.2 Old myocardial infarction; F41.9 Anxiety disorder, unspecified; F32.9 Major depressive disorder, single episode, unspecified; Z87.01 Personal history of pneumonia (recurrent); Z85.46 Personal history of malignant neoplasm of prostate; M54.9 Dorsalgia, unspecified; G89.29 Other chronic pain; Z87.09 Personal history of other diseases of the respiratory system; Z79.1 Long term (current) use of non-steroidal anti-inflammatories (NSAID); Z79.02 Long term (current) use of antithrombotics/antiplatelets; R11.0 Nausea
CPT/HCPCS: 99285; 96375 ×3; 96376 ×2; 96365; 96366 ×2; 36415; 93005; 83880; 80061; 80053; 82550 ×2; 82553 ×2; 83735; 84484 ×2; 85025; 85049; 85610; 85730 ×2; 71046; G0378 ×2; J1644 ×2; J2405; J2274

== ENCOUNTER 2017-07-31 12:42 | Inpatient (IN) | payer MEDICARE ==
[2017-07-31] MEDS ORDERED: SODIUM CHLORIDE 0.9% 1,000 ML IV STA (12:49)
--- NOTE | 2017-07-31 12:57 | ED ---
General Adult HPI - General Chief complaint: Neuro Symptoms/Deficit Stated complaint: Cardiac issues Time Seen by Provider: 07/31/17 12:49 Source: EMS, RN notes reviewed, old records reviewed Mode of arrival: EMS Limitations: no limitations - History of Present Illness Initial comments: This is a 69-year-old male to the ER for evaluation this patient's today for evaluation regards to complain regarding dizziness not feeling well right arm tingling and numbness in right facial numbness. Patient is difficult to convey story, patient does live by himself is brought in by EMS. EMS states patient was found to be bradycardic. EMS states he did not notice any neurological deficit - Related Data Home Medications Medication Instructions Recorded Confirmed ALPRAZolam [Xanax] 0.5 mg PO QID PRN 06/28/15 07/31/17 Acetaminophen Tab [Tylenol] 1,000 mg PO TID PRN 06/28/15 07/31/17 Donepezil [Aricept] 10 mg PO DAILY 06/28/15 07/31/17 Venlafaxine HCl [Effexor] 37.5 mg PO BID 06/28/15 07/31/17 rOPINIRole HCL [Requip] 1 mg PO HS 06/28/15 07/31/17 Atorvastatin Calcium [Lipitor] 80 mg PO HS 10/26/16 07/31/17 Temazepam [Restoril] 30 mg PO HS 07/22/17 07/31/17 Meloxicam [Mobic] 15 mg PO DAILY 07/31/17 07/31/17 Previous Rx's Medication Instructions Recorded Aspirin 81 mg PO BID chew 07/23/17 Losartan [Cozaar] 12.5 mg PO DAILY #30 tab 07/23/17 Metoprolol Succinate (ER) [Toprol 12.5 mg PO DAILY #30 tab.er.24h 07/23/17 XL] Nitroglycerin Sl Tabs [Nitrostat] 0.4 mg SUBLINGUAL Q5M PRN tab 07/23/17 Omeprazole [PriLOSEC] 40 mg PO AC-BRKFST #14 capsule. 07/23/17 Allergies Allergy/AdvReac Type Severity Reaction Status Date / Time No Known Allergies Allergy Verified 07/31/17 13:13 Review of Systems ROS Statement: Those systems with pertinent positive or pertinent negative responses have been documented in the HPI. ROS Other: All systems not noted in ROS Statement are negative. 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 SEVERAL CA'S, BRONCHITIS, DIVERTICULAR DISEASE,CHRONIC BACK PAIN , PROSTATE CA(HAD SX) Last Myocardial Infarction Date:: UNK History of Any Multi-Drug Resistant Organisms: None Reported Past Surgical History: Coronary Bypass/CABG, Heart Catheterization With Stent, Prostate Surgery, Tonsillectomy Additional Past Surgical History / Comment(s): CABG TRIOLE VESSEL IN 1988 CABG [id number] IN 1999, THUMB CUT OFF HAD SX TO REATTATCH, COLONOSCOPY, PROSTATECTOMY , RUPTURED ACHILLIES TENDON REPAIR. 5 stents Past Anesthesia/Blood Transfusion Reactions: No Reported Reaction Date of Last Stent Placement:: UNK Past Psychological History: Anxiety, Depression Smoking Status: Former smoker - Past Family History Father Family Medical History: Coronary Artery Disease (CAD), CVA/TIA Additional Family Medical History / Comment(s): CABG AND VALVE SX Mother Family Medical History: Dementia, Hypertension Additional Family Medical History / Comment(s): MOM IS ALIVE AT 97 YEARS OLD, L[facility]ING IN [facility] General Exam - General Exam Comments Initial Comments: NIH 1 Limitations: no limitations General appearance: alert, in no apparent distress Head exam: Present: atraumatic, normocephalic, normal inspection Eye exam: Present: normal appearance, PERRL, EOMI. Absent: scleral icterus, conjunctival injection, periorbital swelling ENT exam: Present: normal exam, mucous membranes moist Neck exam: Present: normal inspection. Absent: tenderness, meningismus, lymphadenopathy Respiratory exam: Present: normal lung sounds bilaterally. Absent: respiratory distress, wheezes, rales, rhonchi, stridor Cardiovascular Exam: Present: regular rate, normal rhythm, normal heart sounds. Absent: systolic murmur, diastolic murmur, rubs, gallop, clicks GI/Abdominal exam: Present: soft, normal bowel sounds. Absent: distended, tenderness, guarding, rebound, rigid Extremities exam: Present: normal inspection, full ROM, normal capillary refill. Absent: tenderness, pedal edema, joint swelling, calf tenderness Back exam: Present: normal inspection Neurological exam: Present: alert, oriented X3, CN II-XII intact Psychiatric exam: Present: normal affect, normal mood Skin exam: Present: warm, dry, intact, normal color. Absent: rash Course Vital Signs 07/31/17 07/31/17 07/31/17 12:49 12:55 13:45 Temperature 97.4 F L Pulse Rate 48 L 44 L Pulse Rate [ 42 L Apical] Respiratory 18 18 Rate Blood Pressure 148/76 147/71 O2 Sat by Pulse 100 98 Oximetry - Reevaluation(s) Reevaluation #1: 07/31/17 14:54 No TPA secondary to low NIH, episodic symptoms, unknown time of symptoms EKG Findings - EKG Comments: EKG Findings:: EKG shows sinus bradycardia rate of 42, pO2 22, QRS 104, QTC 419 Medical Decision Making - Medical Decision Making 69 male the ER for evaluation. Patient was obviously for evaluation regarding altered mental state, patient concern for stroke, left-sided facial numbness and droop, unknown start time, patient also bradycardia, has no other complaints. - Lab Data Result diagrams: 07/31/17 12:57 07/31/17 12:57 Lab Results 07/31/17 07/31/17 07/31/17 Range/Units 12:57 12:57 12:57 WBC 5.5 (3.8-10.6) k/uL RBC 4.94 (4.30-5.90) m/uL Hgb 15.3 (13.0-17.5) gm/dL Hct 46.5 (39.0-53.0) % MCV 94.1 (80.0-100.0) fL MCH 31.0 (25.0-35.0) pg MCHC 32.9 (31.0-37.0) g/dL RDW 13.1 (11.5-15.5) % Plt Count 169 (150-450) k/uL Neutrophils % 65 % Lymphocytes % 23 % Monocytes % 8 % Eosinophils % 2 % Basophils % 1 % Neutrophils # 3.5 (1.3-7.7) k/uL Lymphocytes # 1.3 (1.0-4.8) k/uL Monocytes # 0.4 (0-1.0) k/uL Eosinophils # 0.1 (0-0.7) k/uL Basophils # 0.0 (0-0.2) k/uL PT (9.0-12.0) sec INR (<1.2) APTT (22.0-30.0) sec Sodium 140 (137-145) mmol/L Potassium 5.0 (3.5-5.1) mmol/L Chloride 102 (98-107) mmol/L Carbon Dioxide 29 (22-30) mmol/L Anion Gap 9 mmol/L BUN 17 (9-20) mg/dL Creatinine 0.83 (0.66-1.25) mg/dL Est GFR (MDRD) Af Amer >60 (>60 ml/min/1.73 sqM) Est GFR (MDRD) Non-Af >60 (>60 ml/min/1.73 sqM) Glucose 113 H (74-99) mg/dL Plasma Lactic Acid Jose (0.7-2.0) mmol/L Calcium 9.7 (8.4-10.2) mg/dL Phosphorus 2.9 (2.5-4.5) mg/dL Magnesium 2.1 (1.6-2.3) mg/dL Total Bilirubin 0.6 (0.2-1.3) mg/dL AST 26 (17-59) U/L ALT 54 (21-72) U/L Alkaline Phosphatase 89 (38-126) U/L Total Creatine Kinase 58 (55-170) U/L CK-MB (CK-2) 1.0 (0.0-2.4) ng/mL CK-MB (CK-2) Rel Index 1.7 Troponin I <0.012 (0.000-0.034) ng/mL Total Protein 6.3 (6.3-8.2) g/dL Albumin 4.1 (3.5-5.0) g/dL Urine Color Urine Appearance (Clear) Urine pH (5.0-8.0) Ur Specific Carroll (1.001-1.035) Urine Protein (Negative) Urine Glucose (UA) (Negative) Urine Ketones (Negative) Urine Blood (Negative) Urine Nitrite (Negative) Urine Bilirubin (Negative) Urine Urobilinogen (<2.0) mg/dL Ur Leukocyte Esterase (Negative) 07/31/17 07/31/17 07/31/17 Range/Units 12:57 12:57 13:36 WBC (3.8-10.6) k/uL RBC (4.30-5.90) m/uL Hgb (13.0-17.5) gm/dL Hct (39.0-53.0) % MCV (80.0-100.0) fL MCH (25.0-35.0) pg MCHC (31.0-37.0) g/dL RDW (11.5-15.5) % Plt Count (150-450) k/uL Neutrophils % % Lymphocytes % % Monocytes % % Eosinophils % % Basophils % % Neutrophils # (1.3-7.7) k/uL Lymphocytes # (1.0-4.8) k/uL Monocytes # (0-1.0) k/uL Eosinophils # (0-0.7) k/uL Basophils # (0-0.2) k/uL PT 10.3 (9.0-12.0) sec INR 1.1 (<1.2) APTT 24.6 (22.0-30.0) sec Sodium (137-145) mmol/L Potassium (3.5-5.1) mmol/L Chloride (98-107) mmol/L Carbon Dioxide (22-30) mmol/L Anion Gap mmol/L BUN (9-20) mg/dL Creatinine (0.66-1.25) mg/dL Est GFR (MDRD) Af Amer (>60 ml/min/1.73 sqM) Est GFR (MDRD) Non-Af (>60 ml/min/1.73 sqM) Glucose (74-99) mg/dL Plasma Lactic Acid Jose 1.1 (0.7-2.0) mmol/L Calcium (8.4-10.2) mg/dL Phosphorus (2.5-4.5) mg/dL Magnesium (1.6-2.3) mg/dL Total Bilirubin (0.2-1.3) mg/dL AST (17-59) U/L ALT (21-72) U/L Alkaline Phosphatase (38-126) U/L Total Creatine Kinase (55-170) U/L CK-MB (CK-2) (0.0-2.4) ng/mL CK-MB (CK-2) Rel Index Troponin I (0.000-0.034) ng/mL Total Protein (6.3-8.2) g/dL Albumin (3.5-5.0) g/dL Urine Color Light Yellow Urine Appearance Clear (Clear) Urine pH 7.5 (5.0-8.0) Ur Specific Carroll 1.003 (1.001-1.035) Urine Protein Negative (Negative) Urine Glucose (UA) Negative (Negative) Urine Ketones Negative (Negative) Urine Blood Negative (Negative) Urine Nitrite Negative (Negative) Urine Bilirubin Negative (Negative) Urine Urobilinogen <2.0 (<2.0) mg/dL Ur Leukocyte Esterase Negative (Negative) - Radiology Data Radiology results: report reviewed (Chest x-ray CT brain negative for acute disease), image reviewed Disposition Clinical Impression: Cerebrovascular accident, Transient cerebral ischemia, Chest pain, Bradycardia Disposition: ADMITTED IP TO THIS [facility] Condition: Undetermined Referrals: Alexandrea Gamino MD [Primary Care Provider] - 1-2 days
[2017-07-31 13:15] LABS: Basophils % (A) 1 %; Eosinophils # (A) 0.1 k/uL (0-0.7); Eosinophils % (A) 2 %; HCT 46.5 % (39.0-53.0); HGB 15.3 gm/dL (13.0-17.5); Lymphocytes # (A) 1.3 k/uL (1.0-4.8); Lymphocytes % (A) 23 %; MCHC 32.9 g/dL (31.0-37.0); MCV 94.1 fL (80.0-100.0); Mean Platelet Volume 8.1; Monocytes # (A) 0.4 k/uL (0-1.0); Monocytes % (A) 8 %; Neutrophils # (A) 3.5 k/uL (1.3-7.7); Neutrophils % (A) 65 %; Platelet Count 169 k/uL (150-450); RBC 4.94 m/uL (4.30-5.90); RDW 13.1 % (11.5-15.5); WBC 5.5 k/uL (3.8-10.6)
[2017-07-31 13:24] LABS: INR 1.1 (<1.2); Partial Thromboplastin Time 24.6 sec (22.0-30.0); Prothrombin Time 10.3 sec (9.0-12.0)
[2017-07-31 13:26] LABS: ALT 54 U/L (21-72); AST 26 U/L (17-59); Albumin 4.1 g/dL (3.5-5.0); Alkaline Phosphatase 89 U/L (38-126); Anion Gap 9 mmol/L; Blood Urea Nitrogen 17 mg/dL (9-20); Calcium 9.7 mg/dL (8.4-10.2); Carbon Dioxide 29 mmol/L (22-30); Chloride 102 mmol/L (98-107); Glucose 113 mg/dL (74-99); Magnesium 2.1 mg/dL (1.6-2.3); Phosphorus 2.9 mg/dL (2.5-4.5); Sodium 140 mmol/L (137-145); Total Bilirubin 0.6 mg/dL (0.2-1.3); Total Protein 6.3 g/dL (6.3-8.2)
--- NOTE | 2017-07-31 13:31 | CT ---
EXAMINATION TYPE: CT brain wo con DATE OF EXAM: 07/31/2017 COMPARISON: 06/25/2012 HISTORY: Rt sided tingling CT DLP: [address] of the brain was performed. The ventricles, basal cisterns and sulci overlying the cerebral convexities demonstrate mild enlargem ent. There is no evidence for intracranial hemorrhage or sulcal effacement. There is moderate confluent decreased attenuation about the periventricular white matter and deep whi te matter of both cerebral hemispheres, compatible with chronic small vessel ischemia. Differential d iagnosis does include demyelination. No mass effects are seen.No midline shift. Osseous calvarium is intact. If symptoms persist consider MRI. IMPRESSION: 1. Age related atrophic and chronic small vessel ischemic change without acute intracranial process s een at this time.
[2017-07-31 13:41] LABS: Creatine Kinase 58 U/L (55-170)
--- NOTE | 2017-07-31 13:41 | XR ---
EXAMINATION TYPE: XR chest 2V DATE OF EXAM: 07/31/2017 COMPARISON: 07/22/2017 HISTORY: Shortness of breath TECHNIQUE: Frontal and lateral views of the chest are obtained. FINDINGS: Scattered senescent parenchymal changes noted. Hyperinflation compatible with COPD. No evidence for infiltrate. No evidence for atelectasis. Heart size is stable. There is pulmonary venous congestion without overt failure. Mediastinal structures are stable and grossly unremarkable. No evidence for hilar prominence. Degenerative changes dorsal spine. IMPRESSION: 1. There is pulmonary venous congestion without overt failure.
[2017-07-31 13:53] LABS: Appearance,Urine Clear (Clear); Bilirubin,Urine Negative (Negative); Blood,Urine Negative (Negative); Color,Urine Light Yellow; Glucose,Urine (UA) Negative (Negative); Ketones,Urine Negative (Negative); Leukocyte Esterase,Urine Negative (Negative); Nitrite,Urine Negative (Negative); PH, Urine 7.5 (5.0-8.0); Protein,Urine Negative (Negative); Specific Gravity,Urine 1.003 (1.001-1.035); Urobilinogen,Urine <2.0 mg/dL (<2.0)
[2017-07-31 13:54] LABS: Troponin I <0.012 ng/mL (0.000-0.034)
[2017-07-31] MEDS ORDERED: ASPIRIN 325 MG TAB PO STA (14:50)
[2017-07-31] MEDS ORDERED: SODIUM CHLORIDE 0.9% 1,000 ML IV SCH (15:00)
--- NOTE | 2017-07-31 16:02 | US ---
EXAMINATION TYPE: US carotid duplex BILAT DATE OF EXAM: 07/31/2017 COMPARISON: NONE CLINICAL HISTORY: Stenosis. EXAM MEASUREMENTS: RIGHT: Peak Systolic Velocity (PSV) cm/sec ----- Right CCA: 77.9 ----- Right ICA: 62.8 ----- Right ECA: 62.8 ICA/CCA ratio: 0.8 RIGHT: End Diastole cm/sec ----- Right CCA: 6.4 ----- Right ICA: 16.6 ----- Right ECA: 6.5 LEFT: Peak Systolic Velocity (PSV) cm/sec ----- Left CCA: 55.0 ----- Left ICA: 68.3 ----- Left ECA: 52.5 ICA/CCA ratio: 1.2 LEFT: End Diastole cm/sec ----- Left CCA: 11.6 ----- Left ICA: 22.8 ----- Left ECA: 4.3 VERTEBRALS (direction of flow): Right Vertebral: Antegrade Left Vertebral: Antegrade Rhythm: Normal Mild plaque, no significant velocity elevations. IMPRESSION: No evidence for hemodynamically significant stenosis. Criteria for Assigning % of Stenosis / Diameter reduction (Estimation based on the indirect measurements of the internal carotid artery velocities (ICA PSV). 1. Normal (no stenosis)=ICA PSV < 125 cm/s: ratio < 2.0: ICA EDV<40 cm/s. 2. Less than 50% stenosis=ICA PSV < 125 cm/s: ratio < 2.0: ICA EDV<40 cm/s. 3. 50 to 69% stenosis=ICA PSV of 125 to 230 cm/s: ration 2.0 ? 4.0: ICA EDV 40-100 cm/s. 4. Greater than 70% stenosis to near occlusion= ICA PSV > 230 cm/s: ratio > 4.0: ICA EDV > 100 cm/s. 5. Near occlusion= ICA PSV velocities may be low or undetectable: variable ratio and ICA EDV. 6. Total occlusion=unable to detect flow.
[2017-07-31] MEDS ORDERED: NITROGLYCERIN SL TABS 0.4 MG TAB SUBLINGUAL PRN (16:55)
[2017-07-31] MEDS ORDERED: ACETAMINOPHEN TAB 500 MG TAB PO PRN (16:55)
[2017-07-31] MEDS ORDERED: ALPRAZolam 0.5 MG TAB PO PRN (16:55)
[2017-07-31] MEDS ORDERED: IPRATROPIUM-ALBUTEROL 3 ML NEB INHALATION PRN (17:04)
[2017-07-31] MEDS ORDERED: TEMAZEPAM 30 MG CAP PO SCH (21:00)
[2017-07-31] MEDS: ATORVASTATIN 80 MG TAB PO SCH (21:08)
[2017-07-31] MEDS: VENLAFAXINE HCL 37.5 MG TAB PO SCH (21:08)
[2017-07-31] MEDS: HEPARIN SODIUM,PORCINE 5,000 UNIT/ML 1 ML VIAL SQ SCH (21:08)
--- NOTE | 2017-07-31 22:15 | P.HPIM ---
History of Present Illness H&P Date: 07/31/17 Chief Complaint: Dizziness and generalized weakness Patient is a 77-year-old male with a known history of coronary artery disease and history of bypass graft, cardiomyopathy with ejection fraction 35%, COPD, dementia, hyperlipidemia, hypertension osteoarthritis and multiple other medical problems came to the hospital with complaints of dizziness, weak and not feeling well. Denied any syncopal episode. No headache Patient also felt right arm tingling and numbness in the right side of the face. EMS states he did not notice any neurological deficit. Patient admitted to the hospital recently on 07/23/2017 with dizziness and chest pain and cardiac workup has been negative as a time. Patient was found to have bradycardia. Cardizem has been discontinued and metoprolol dose has been reduced at that time. Patient follows with Dr. Aviles as an outpatient. Otherwise patient denied any nausea vomiting or abdominal pain. No diarrhea. UA negative for infection. Most recent echocardiogram reveals decreased LV function with EF 35%. Most recent Lexiscan performed 05/2017 is negative for reversible cardiac ischemia. Most recent cath done 02/2011 revealed DAI-LAD patent, radial-intermediate patent, LCX closed, RCA 50% stenosis. Most recent holter monitor 05/2017 shows heart rate ranging from 43-113 with average 63. No pauses, midly prolonged PA, occasional intermittent AV node wenkebach block and infrequent PVC's. In the ER patient had chest x-ray showed mild vascular congestion EKG showed sinus bradycardia with first-degree AV block CT head showed chronic small vessel ischemic changes. No acute intracranial process Carotid duplex showed no hemodynamically significant stenosis. Review of Systems Constitutional: Patient denies any fever or chills . Generalized weakness and fatigue Abdomen: Patient denied nausea vomiting and diarrhea and abdominal pain. Cardiovascular: Patient denies any chest pain or short of breath no palpitations. Respiratory: patient denied any cough is from production. No shortness of breath Neurologic: Right Facial numbness . Tingling of the right arm. No headache. No focal weakness.. Musculoskeletal: Patient denies any complaints of joint swelling or deformity. Skin: Negative Psychiatric: Negative Endocrine: No heat or cold intolerance. No recent weight gain. Genitourinary: No dysuria or hematuria. 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 SEVERAL [place]'S, BRONCHITIS, DIVERTICULAR DISEASE,CHRONIC BACK PAIN , PROSTATE CA(HAD SX), CONSTIPATION, PALPITATIONS Last Myocardial Infarction Date:: UNK History of Any Multi-Drug Resistant Organisms: None Reported Past Surgical History: Coronary Bypass/CABG, Heart Catheterization With Stent, Prostate Surgery, Tonsillectomy Additional Past Surgical History / Comment(s): CABG TRIOLE VESSEL IN 1988 CABG [id number] IN 1999, THUMB CUT OFF HAD SX TO REATTATCH, COLONOSCOPY, PROSTATECTOMY , RUPTURED ACHILLIES TENDON REPAIR. 5 stents, LEIF CATARACATS Past Anesthesia/Blood Transfusion Reactions: No Reported Reaction Date of Last Stent Placement:: UNK Past Psychological History: Anxiety, Depression Smoking Status: Former smoker Past Alcohol Use History: None Reported Additional Past Alcohol Use History / Comment(s): SMOKED X 30 YEARS 1PPD, QUIT 27 YEARS AGO Past Drug Use History: None Reported - Past Family History Father Family Medical History: Coronary Artery Disease (CAD), CVA/TIA Additional Family Medical History / Comment(s): CABG AND VALVE SX Mother Family Medical History: Dementia, Hypertension Additional Family Medical History / Comment(s): MOM IS ALIVE AT 97 YEARS OLD, L[facility]ING IN [facility] Medications and Allergies Home Medications Medication Instructions Recorded Confirmed Type ALPRAZolam [Xanax] 0.5 mg PO QID PRN 06/28/15 07/31/17 History Acetaminophen Tab [Tylenol] 1,000 mg PO TID PRN 06/28/15 07/31/17 History Donepezil [Aricept] 10 mg PO DAILY 06/28/15 07/31/17 History Venlafaxine HCl [Effexor] 37.5 mg PO BID 06/28/15 07/31/17 History rOPINIRole HCL [Requip] 1 mg PO HS 06/28/15 07/31/17 History Atorvastatin Calcium [Lipitor] 80 mg PO HS 10/26/16 07/31/17 History Temazepam [Restoril] 30 mg PO HS 07/22/17 07/31/17 History Aspirin 81 mg PO BID chew 07/23/17 07/31/17 Rx Losartan [Cozaar] 12.5 mg PO DAILY #30 tab 07/23/17 07/31/17 Rx Metoprolol Succinate (ER) [Toprol 12.5 mg PO DAILY #30 tab.er.24h 07/23/1707/31 Rx XL] Nitroglycerin Sl Tabs [Nitrostat] 0.4 mg SUBLINGUAL Q5M PRN tab 07/23/17 Rx Omeprazole [PriLOSEC] 40 mg PO AC-BRKFST #14 capsule.dr 07/23/17 07/31/17 Rx Meloxicam [Mobic] 15 mg PO DAILY 07/31/17 07/31/17 History Allergies Allergy/AdvReac Type Severity Reaction Status Date / Time No Known Allergies Allergy Verified 07/31/17 13:13 Physical Exam Vitals: Vital Signs Temp Pulse Pulse Resp BP Pulse Ox 07/31/17 16:15 97.4 F L 40 L 18 98 07/31/17 15:42 48 L 18 142/68 98 07/31/17 14:35 48 L 18 163/76 98 07/31/17 13:45 44 L 18 147/71 98 07/31/17 12:55 42 L 07/31/17 12:49 97.4 F L 48 L 18 148/76 100 Intake and Output 07/31/17 07/31/17 07/31/17 06:59 14:59 22:59 Other: Weight 75.75 kg Patient Weight 08/01/17 06:59 Weight 75.75 kg PHYSICAL EXAMINATION: Patient is lying in the bed comfortably, no acute distress, awake alert and oriented.. HEENT: Normocephalic. Neck is supple. Pupils reactive. Nostrils clear. Oral cavity is moist. Ears reveal no drainage. Neck reveals no JVD, carotid bruits, or thyromegaly. CHEST EXAMINATION: Trachea is central. Symmetrical expansion. Lung olson clear to auscultation and percussion. CARDIAC: Normal S1, S2 with no gallops. No murmurs . Bradycardia. ABDOMEN: Soft. Bowel sounds normal. No organomegaly. No abdominal bruits. Extremities: reveal no edema. No clubbing or cyanosis Neurologically awake, alert, oriented x3 with well-coordinated movements. No focal deficits noted Skin: No rash or skin lesions. Psychiatric: Coperative. Nonsuicidal Musculoskeletal: No joint swelling or deformity. Normal range of motion. Results CBC & Chem 7: 07/31/17 12:57 07/31/17 12:57 Labs: Abnormal Lab Results - Last 24 Hours (Table) 07/31/17 Range/Units 12:57 Glucose 113 H (74-99) mg/dL Thrombosis Risk Factor Assmnt - DVT/VTE Prophylaxis DVT/VTE Prophylaxis: Pharmacologic Prophylaxis ordered Assessment and Plan Assessment: Dizziness and generalized weakness with possible symptomatic bradycardia vs medication change. 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 We will hold Toprol and Aricept as well. Workup for CVA including CT head and carotid duplex is negative. Neurology and Cardiology has been consulted. Patient was given IV fluids in the ER was later bolus and continued on gentle hydration. Will monitor fluid status due to underlying CHF. Continue with home medications and further recommendations based on the clinical course. Prognosis is guarded. Time with Patient: Greater than 30
[2017-08-01] MEDS: PANTOPRAZOLE 40 MG TABLET PO SCH (06:40)
[2017-08-01 06:41] LABS: Anion Gap 8 mmol/L; Blood Urea Nitrogen 15 mg/dL (9-20); Calcium 9.6 mg/dL (8.4-10.2); Carbon Dioxide 29 mmol/L (22-30); Chloride 104 mmol/L (98-107); Cholesterol 113 mg/dL (<200); Glucose 102 mg/dL (74-99); HDL Cholesterol 42 mg/dL (40-60); LDL Cholesterol,Calculated 30 mg/dL (0-99); Magnesium 2.1 mg/dL (1.6-2.3); Potassium 4.3 mmol/L (3.5-5.1); Sodium 141 mmol/L (137-145); Triglycerides 206 mg/dL (<150)
--- NOTE | 2017-08-01 08:47 | P.CRDCN ---
History of Present Illness Consult date: 08/01/17 Requesting physician: Aminta Durant Chief complaint: Right-sided facial numbness, dizziness and palpitations History of present illness: This is a pleasant 77-year-old gentleman who follows with Dr. Lazaro in the office. He has a known history of coronary artery disease with prior CABG in 1988, in 1999 patient again underwent surgery with a radial artery to the intermediate, in 2010 patient underwent a cardiac catheterization which revealed a patent DAI to the LAD, radial to the intermediate is patent, left circumflex was closed RCA 50% ejection fraction at that time 45-50%. Patient also has history of hypertension, hyperlipidemia, chronic chest pain, depression and mild dementia. He was recently in the hospital on the of this month, he states just prior to that that he had seen Dr. Lazaro in the office and his Cardizem and Plavix were discontinued. Since then the patient states he's been more dizzy, complaining of palpitations, and chest discomfort. Patient presents to the hospital on this occasion with symptoms of right facial numbness, mild visual disturbance, dizziness, and palpitations. Most recent stress test was performed in October 2016 which revealed a large defect along the lateral wall compatible with infarct. Small amount of reversibility was also noted along the anterior wall near the base, this large defect was mostly non-reversible. EKG on arrival here shows a sinus bradycardia with first -degree AV block and ST-T wave changes in the anterior lateral leads. EKG is similar to prior EKGs. At scan of the brain was performed which revealed age- related atrophic and chronic small vessel ischemic change without acute intracranial process noted. Chest x-ray shows pulmonary venous congestion without failure. Carotid Doppler study does not reveal any evidence for hemodynamically significant stenosis. Blood pressure on arrival 148/70, heart rate 48, 100% on room air. Blood pressure this morning 162/70 with a heart rate in the 50s, 96% on room air. CBC normal. Sodium 141, potassium 4.3, chloride 104, BUN 15, creatinine 0.8. Troponins are negative 3. Cholesterol 113, triglycerides 206, LDL 30, HDL 42, TSH 1.7. At the time of my examination this morning, patient states he has no further numbness in his face, no visual disturbance, mild dizziness he does complain of, as well as palpitations. 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 SEVERAL [place]'S, BRONCHITIS, DIVERTICULAR DISEASE,CHRONIC BACK PAIN , PROSTATE CA(HAD SX), CONSTIPATION, PALPITATIONS Last Myocardial Infarction Date:: UNK History of Any Multi-Drug Resistant Organisms: None Reported Past Surgical History: Coronary Bypass/CABG, Heart Catheterization With Stent, Prostate Surgery, Tonsillectomy Additional Past Surgical History / Comment(s): CABG TRIOLE VESSEL IN 1988 CABG [id number] IN 1999, THUMB CUT OFF HAD SX TO REATTATCH, COLONOSCOPY, PROSTATECTOMY , RUPTURED ACHILLIES TENDON REPAIR. 5 stents, LEIF CATARACATS Past Anesthesia/Blood Transfusion Reactions: No Reported Reaction Date of Last Stent Placement:: UNK Past Psychological History: Anxiety, Depression Smoking Status: Former smoker Past Alcohol Use History: None Reported Additional Past Alcohol Use History / Comment(s): SMOKED X 30 YEARS 1PPD, QUIT 27 YEARS AGO Past Drug Use History: None Reported - Past Family History Father Family Medical History: Coronary Artery Disease (CAD), CVA/TIA Additional Family Medical History / Comment(s): CABG AND VALVE SX Mother Family Medical History: Dementia, Hypertension Additional Family Medical History / Comment(s): MOM IS ALIVE AT 97 YEARS OLD, L[facility]ING IN [facility] Medications and Allergies Home Medications Medication Instructions Recorded Confirmed Type ALPRAZolam [Xanax] 0.5 mg PO QID PRN 06/28/15 07/31/17 History Acetaminophen Tab [Tylenol] 1,000 mg PO TID PRN 06/28/15 07/31/17 History Donepezil [Aricept] 10 mg PO DAILY 06/28/15 07/31/17 History Venlafaxine HCl [Effexor] 37.5 mg PO BID 06/28/15 07/31/17 History rOPINIRole HCL [Requip] 1 mg PO HS 06/28/15 07/31/17 History Atorvastatin Calcium [Lipitor] 80 mg PO HS 10/26/16 07/31/17 History Temazepam [Restoril] 30 mg PO HS 07/22/17 07/31/17 History Aspirin 81 mg PO BID chew 07/23/17 07/31/17 Rx Losartan [Cozaar] 12.5 mg PO DAILY #30 tab 07/23/17 07/31/17 Rx Metoprolol Succinate (ER) [Toprol 12.5 mg PO DAILY #30 tab.er.24h 07/23/1707/31 Rx XL] Nitroglycerin Sl Tabs [Nitrostat] 0.4 mg SUBLINGUAL Q5M PRN tab 07/23/17 Rx Omeprazole [PriLOSEC] 40 mg PO AC-BRKFST #14 capsule.dr 07/23/17 07/31/17 Rx Meloxicam [Mobic] 15 mg PO DAILY 07/31/17 07/31/17 History Allergies Allergy/AdvReac Type Severity Reaction Status Date / Time No Known Allergies Allergy Verified 07/31/17 13:13 Physical Exam Vitals: Vital Signs Temp Pulse Pulse Pulse Resp BP BP 08/01/17 07:36 97.4 F L 54 L 19 08/01/17 05:50 60 150/76 08/01/17 04:00 57 L 18 08/01/17 03:50 70 18 168/79 08/01/17 01:50 50 L 08/01/17 00:00 54 L 18 07/31/17 23:50 54 L 18 152/71 07/31/17 21:50 57 L 18 157/77 07/31/17 20:00 45 L 48 L 18 154/67 07/31/17 19:50 96.9 F L 48 L 18 154/67 07/31/17 17:50 96.7 F L 48 L 18 136/80 07/31/17 16:50 96.7 F L 62 18 148/70 07/31/17 16:15 97.4 F L 40 L 18 07/31/17 15:42 48 L 18 142/68 07/31/17 14:35 48 L 18 163/76 07/31/17 13:45 44 L 18 147/71 07/31/17 12:55 42 L 07/31/17 12:49 97.4 F L 48 L 18 148/76 BP Pulse Ox 08/01/17 07:36 162/74 96 08/01/17 05:50 08/01/17 04:00 08/01/17 03:50 95 08/01/17 01:50 08/01/17 00:00 07/31/17 23:50 96 07/31/17 21:50 95 07/31/17 20:00 96 07/31/17 19:50 96 07/31/17 17:50 98 07/31/17 16:50 99 07/31/17 16:15 98 07/31/17 15:42 98 07/31/17 14:35 98 07/31/17 13:45 98 07/31/17 12:55 07/31/17 12:49 100 Intake and Output 07/31/17 08/01/17 08/01/17 22:59 06:59 14:59 Output Total 400 Balance -400 Output: Urine 400 Other: Voiding Method Toilet Toilet Urinal # Voids 1 Weight 73.7 kg PHYSICAL EXAMINATION: HEENT: Head is atraumatic, normocephalic. Pupils equal, round. Neck is supple. There is no elevated jugular venous pressure. HEART EXAMINATION: Heart S1, S2 normal. No murmur or gallop heard. CHEST EXAMINATION: Lungs are clear to auscultation and precussion. No chest wall tenderness is noted on palpation or with deep breathing. ABDOMEN: Soft, nontender. Bowel sounds are heard. No organomegaly noted. EXTREMITIES: 2+ peripheral pulses with no evidence of peripheral edema and no calf tenderness noted. NEUROLOGIC patient is awake, alert and oriented -3. . Results 07/31/17 12:57 08/01/17 06:03 Cardiac Enzymes 07/31/17 07/31/17 07/31/17 Range/Units 12:57 12:57 18:51 AST 26 (17-59) U/L CK-MB (CK-2) 1.0 (0.0-2.4) ng/mL Troponin I <0.012 <0.012 (0.000-0.034) ng/mL 08/01/17 08/01/17 Range/Units 01:02 06:03 AST (17-59) U/L CK-MB (CK-2) (0.0-2.4) ng/mL Troponin I <0.012 <0.012 (0.000-0.034) ng/mL Coagulation 07/31/17 Range/Units 12:57 PT 10.3 (9.0-12.0) sec APTT 24.6 (22.0-30.0) sec Lipids 08/01/17 Range/Units 06:03 Triglycerides 206 H (<150) mg/dL Cholesterol 113 (<200) mg/dL HDL Cholesterol 42 (40-60) mg/dL CBC 07/31/17 Range/Units 12:57 WBC 5.5 (3.8-10.6) k/uL RBC 4.94 (4.30-5.90) m/uL Hgb 15.3 (13.0-17.5) gm/dL Hct 46.5 (39.0-53.0) % Plt Count 169 (150-450) k/uL Comprehensive Metabolic Panel 07/31/17 08/01/17 Range/Units 12:57 06:03 Sodium 140 141 (137-145) mmol/L Potassium 5.0 4.3 (3.5-5.1) mmol/L Chloride 102 104 (98-107) mmol/L Carbon Dioxide 29 29 (22-30) mmol/L BUN 17 15 (9-20) mg/dL Creatinine 0.83 0.87 (0.66-1.25) mg/dL Glucose 113 H 102 H (74-99) mg/dL Calcium 9.7 9.6 (8.4-10.2) mg/dL AST 26 (17-59) U/L ALT 54 (21-72) U/L Alkaline Phosphatase 89 (38-126) U/L Total Protein 6.3 (6.3-8.2) g/dL Albumin 4.1 (3.5-5.0) g/dL Current Medications Generic Name Dose Route Start Last Admin Trade Name Freq PRN Reason Stop Dose Admin Acetaminophen 1,000 mg 07/31/17 16:55 Tylenol Tab PO TID PRN MILD Pain Albuterol/Ipratropium 3 ml 07/31/17 17:04 Duoneb 0.5 Mg-3 Mg/3 Ml Soln INHALATION RT-TID PRN Shortness Of Breath Or Wheezing Aspirin 325 mg 08/01/17 09:00 Aspirin PO DAILY [facility] Atorvastatin Calcium 80 mg 07/31/17 21:00 07/31/17 21:08 Lipitor PO 80 mg HS RICHARD Administration Heparin Sodium (Porcine) 5,000 unit 07/31/17 21:00 07/31/17 21:08 Heparin SQ 5,000 unit Q12HR RICHARD Administration Losartan Potassium 12.5 mg 08/01/17 09:00 Cozaar PO DAILY RICHARD Meloxicam 15 mg 08/01/17 09:00 Mobic PO DAILY RICHARD Nitroglycerin 0.4 mg 07/31/17 16:55 Nitrostat SUBLINGUAL Q5M PRN Chest Pain Pantoprazole Sodium 40 mg 08/01/17 07:30 08/01/17 06:40 Protonix PO 40 mg AC-BRKFST RICHARD Administration Ropinirole HCl 1 mg 07/31/17 21:00 07/31/17 21:07 Requip PO 1 mg HS RICHARD Administration Venlafaxine HCl 37.5 mg 07/31/17 21:00 07/31/17 21:08 Effexor PO 37.5 mg BID RICHARD Administration Intake and Output 07/31/17 08/01/17 08/01/17 22:59 06:59 14:59 Output Total 400 Balance -400 Output: Urine 400 Other: Voiding Method Toilet Toilet Urinal # Voids 1 Weight 73.7 kg 07/31/17 12:57 08/01/17 06:03 EKG Interpretations (text) EKG shows sinus bradycardia with ST-T wave changes in the anterior lateral leads Assessment and Plan Plan: Assessment and plan #1 atypical chest discomfort, troponins negative 3. EKG shows sinus bradycardia with anterior lateral ST-T wave changes, similar to prior EKGs. DEXA scan stress test was performed in September of this year which revealed a large defect along the lateral wall compatible with infarct. Small amount of reversibility may be noted along the anterior wall region. #2 left-sided facial numbness with associated dizziness and weakness. CT of the brain does not reveal any acute findings. Patient is noted to be bradycardic on the monitor. Heart rate in the 40s. TSH normal. On Toprol 12-1 /2 mg daily. Recently had his Cardizem discontinued in the office. #3 chronic chest pain syndrome #4 known history of coronary artery disease with prior bypass surgery #5 hypertension #6 hyperlipidemia #7 depression #8 mild dementia Plan Patient states that he had a recent echocardiogram with Doppler study performed in the office, we will get record of that. Last documented ejection fraction 35 %. Decrease aspirin to 81 mg daily. Patient was on 12-1/2 mg of Toprol at home which is currently on hold. We will increase his dose of Cozaar for more optimal blood pressure control. Further recommendations to follow. DNP note has been reviewed, I agree with a documented findings and plan of care. Patient was seen and examined.
[2017-08-01] MEDS ORDERED: LOSARTAN 25 MG TAB PO SCH (09:00)
[2017-08-01] MEDS ORDERED: ASPIRIN 325 MG TAB PO SCH (09:00)
[2017-08-01] MEDS ORDERED: ASPIRIN 81 MG PO SCH (09:00)
[2017-08-01] MEDS: HEPARIN SODIUM,PORCINE 5,000 UNIT/ML 1 ML VIAL SQ SCH ×2 (10:02→20:59)
[2017-08-01] MEDS: LOSARTAN 25 MG TAB PO SCH (10:02)
[2017-08-01] MEDS: MELOXICAM 7.5 MG TAB PO SCH (10:03)
[2017-08-01] MEDS: VENLAFAXINE HCL 37.5 MG TAB PO SCH ×2 (10:04→20:59)
[2017-08-01] MEDS: ISOSORBIDE MONONITRATE ER 30 MG TAB.ER.24H PO SCH (10:05)
--- NOTE | 2017-08-01 14:30 | P.CNPUL ---
History of Present Illness Consult date: 08/01/17 Requesting physician: Aminta Durant Reason for consult: other Chief complaint: dizziness, right arm tingling and numbness, right facial numbness, bradycar History of present illness: Prateek is a 77-year-old white male patient who follows with Dr. Morales for primary care services, presented to the emergency department on 07/31/2017 at 1249 with complaints of lightheadedness, dizziness, right arm numbness and tingling, and right facial numbness. He called 911, he was noted to be bradycardic when the EMS arrived, but without any new neurological deficit. In the emergency room EKG shows sinus bradycardia with a rate of 42, brain CT showed age-related atrophic and chronic small vessel ischemic changes without any acute intracranial process. Carotid Doppler on 07/31/2017 was negative for any evidence of hemodynamically significant stenosis. Chest x-ray shows pulmonary venous congestion without overt failure. Patient was admitted last week for 24-hour observation with complaints of atypical chest pain, accompanied by dizziness, lightheadedness, generalized weakness, headaches, palpitations. The chest pain was felt to be atypical, troponins were negative 3 during that admission, there were no new EKG changes, his medications were being adjusted per cardiology, specifically his losartan on Toprol were reduced. Patient does have past medical history of ischemic cardiomyopathy, with EF of 30-35%, coronary artery disease with history of coronary artery bypass grafting 2, PCI and stenting, COPD, hypertension, dyslipidemia, dementia , osteoarthritis. Cardiology is following this admission. On today's exam he denies any lightheadedness, dizziness, or numbness in his right arm or face. No focal neurological deficits noted, patient is awake, alert, slightly hesitant with verbal responses. Review of Systems All systems: negative Constitutional: Denies chills, Denies fever Eyes: denies blurred vision, denies pain Ears, nose, mouth and throat: Denies headache, Denies sore throat Cardiovascular: Denies chest pain, Denies shortness of breath Respiratory: Denies cough Gastrointestinal: Denies abdominal pain, Denies diarrhea, Denies nausea, Denies vomiting Musculoskeletal: Denies myalgias Integumentary: Denies pruritus, Denies rash Neurological: Denies numbness, Denies weakness Psychiatric: Denies anxiety, Denies depression Endocrine: Denies fatigue, Denies weight change Past Medical History Past Medical History: Coronary Artery Disease (CAD), Cancer, Chest Pain / Angina , COPD, Dementia, GERD/Reflux, Hyperlipidemia, Hypertension, Memory Impairment, Myocardial Infarction (AK), Osteoarthritis (OA), Pneumonia Additional Past Medical History / Comment(s): PER PAST MEDICAL(2011) RECORD PT STATED" 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 SEVERAL AK'S, BRONCHITIS, DIVERTICULAR DISEASE,CHRONIC BACK PAIN , PROSTATE CA(HAD SX), CONSTIPATION, PALPITATIONS Last Myocardial Infarction Date:: UNK History of Any Multi-Drug Resistant Organisms: None Reported Past Surgical History: Coronary Bypass/CABG, Heart Catheterization With Stent, Prostate Surgery, Tonsillectomy Additional Past Surgical History / Comment(s): CABG TRIOLE VESSEL IN 1988 CABG [id number] IN 1999, THUMB CUT OFF HAD SX TO REATTATCH, COLONOSCOPY, PROSTATECTOMY , RUPTURED ACHILLIES TENDON REPAIR. 5 stents, LEIF CATARACATS Past Anesthesia/Blood Transfusion Reactions: No Reported Reaction Date of Last Stent Placement:: UNK Past Psychological History: Anxiety, Depression Smoking Status: Former smoker Past Alcohol Use History: None Reported Additional Past Alcohol Use History / Comment(s): SMOKED X 30 YEARS 1PPD, QUIT 27 YEARS AGO Past Drug Use History: None Reported - Past Family History Father Family Medical History: Coronary Artery Disease (CAD), CVA/TIA Additional Family Medical History / Comment(s): CABG AND VALVE SX Mother Family Medical History: Dementia, Hypertension Additional Family Medical History / Comment(s): MOM IS ALIVE AT 97 YEARS OLD, L[facility]ING IN [facility] Medications and Allergies Home Medications Medication Instructions Recorded Confirmed Type ALPRAZolam [Xanax] 0.5 mg PO QID PRN 06/28/15 07/31/17 History Acetaminophen Tab [Tylenol] 1,000 mg PO TID PRN 06/28/15 07/31/17 History Donepezil [Aricept] 10 mg PO DAILY 06/28/15 07/31/17 History Venlafaxine HCl [Effexor] 37.5 mg PO BID 06/28/15 07/31/17 History rOPINIRole HCL [Requip] 1 mg PO HS 06/28/15 07/31/17 History Atorvastatin Calcium [Lipitor] 80 mg PO HS 10/26/16 07/31/17 History Temazepam [Restoril] 30 mg PO HS 07/22/17 07/31/17 History Aspirin 81 mg PO BID chew 07/23/17 07/31/17 Rx Losartan [Cozaar] 12.5 mg PO DAILY #30 tab 07/23/17 07/31/17 Rx Metoprolol Succinate (ER) [Toprol 12.5 mg PO DAILY #30 tab.er.24h 07/23/1707/31 Rx XL] Nitroglycerin Sl Tabs [Nitrostat] 0.4 mg SUBLINGUAL Q5M PRN tab 07/23/17 Rx Omeprazole [PriLOSEC] 40 mg PO AC-BRKFST #14 capsule.dr 07/23/17 07/31/17 Rx Meloxicam [Mobic] 15 mg PO DAILY 07/31/17 07/31/17 History Allergies Allergy/AdvReac Type Severity Reaction Status Date / Time No Known Allergies Allergy Verified 07/31/17 13:13 Physical Exam Vitals: Vital Signs Temp Pulse Pulse Pulse Resp BP BP 08/01/17 12:00 98.7 F 62 71 18 08/01/17 11:41 98.3 F 67 20 08/01/17 10:01 71 08/01/17 09:54 08/01/17 09:04 64 08/01/17 08:48 63 62 19 08/01/17 08:00 97.6 F 64 18 08/01/17 07:50 97.4 F L 58 L 18 08/01/17 07:36 97.4 F L 54 L 19 08/01/17 05:50 60 150/76 08/01/17 04:00 57 L 18 08/01/17 03:50 70 18 168/79 08/01/17 01:50 50 L 08/01/17 00:00 54 L 18 07/31/17 23:50 54 L 18 152/71 07/31/17 21:50 57 L 18 157/77 07/31/17 20:00 45 L 48 L 18 154/67 07/31/17 19:50 96.9 F L 48 L 18 154/67 07/31/17 17:50 96.7 F L 48 L 18 136/80 07/31/17 16:50 96.7 F L 62 18 148/70 07/31/17 16:15 97.4 F L 40 L 18 07/31/17 15:42 48 L 18 142/68 07/31/17 14:35 48 L 18 163/76 BP BP Pulse Ox 08/01/17 12:00 136/76 97 08/01/17 11:41 140/79 97 08/01/17 10:01 156/74 08/01/17 09:54 186/84 08/01/17 09:04 08/01/17 08:48 08/01/17 08:00 152/75 97 08/01/17 07:50 156/76 95 08/01/17 07:36 162/74 96 08/01/17 05:50 08/01/17 04:00 08/01/17 03:50 95 08/01/17 01:50 08/01/17 00:00 07/31/17 23:50 96 07/31/17 21:50 95 07/31/17 20:00 96 07/31/17 19:50 96 07/31/17 17:50 98 07/31/17 16:50 99 07/31/17 16:15 98 07/31/17 15:42 98 07/31/17 14:35 98 Intake and Output 07/31/17 08/01/17 08/01/17 22:59 06:59 14:59 Intake Total 180 Output Total 400 Balance -400 180 Intake: Oral 180 Output: Urine 400 Other: Voiding Method Toilet Toilet Toilet Urinal Urinal # Voids 1 1 Weight 73.7 kg GENERAL EXAM: Alert, active, comfortable in no apparent distress. HEAD: Normocephalic/atraumatic. EYES: Normal reaction of pupils, equal size. Conjunctiva pink, sclera white. NOSE: Clear with pink turbinates. THROAT: No erythema or exudates. NECK: No masses, no JVD, no thyroid enlargement, no adenopathy. CHEST: No chest wall deformity. Symmetrical expansion. LUNGS: Equal air entry with no crackles, wheeze, rhonchi or dullness. CVS: Regular rate and rhythm, normal S1 and S2, no gallops, no murmurs, no rubs ABDOMEN: Soft, nontender. No hepatosplenomegaly, normal bowel sounds, no guarding or rigidity. EXTREMITIES: No clubbing, no edema, no cyanosis, 2+ pulses and upper and lower extremities. MUSCULOSKELETAL: Muscle strength and tone normal. SPINE: No scoliosis or deformity SKIN: No rashes CENTRAL NERVOUS SYSTEM: Alert and oriented -3. No focal deficits, tone is normal in all 4 extremities. PSYCHIATRIC: Alert and oriented -3. Appropriate affect. Intact judgment and insight. Results - Laboratory Findings CBC and BMP: 07/31/17 12:57 08/01/17 06:03 PT/INR, D-dimer PT 10.3 sec (9.0-12.0) 07/31/17 12:57 INR 1.1 (<1.2) 07/31/17 12:57 Abnormal lab findings: Abnormal Labs 07/31/17 08/01/17 12:57 06:03 Glucose 113 H 102 H Triglycerides 206 H - Diagnostic Findings Chest x-ray: report reviewed Additional studies: Twelve-lead EKG, cardiac ultrasound, CT brain were reviewed Assessment and Plan Plan: Assessment: #1. Symptomatic bradycardia, complaints of lightheadedness dizziness #2. TIA, with symptoms of right arm tingling and facial numbness, currently resolved #3. Ischemic cardiomyopathy with ejection fraction of 30-35%. #4. Coronary artery disease, history of coronary artery bypass grafting, PCI and stenting #5. COPD, with no signs of current exacerbation #6. Hypertension #7. Osteoarthritis #8. Dementia #9. History of nicotine dependence, currently in remission Plan: Patient's symptoms of right arm tingling and facial numbness have currently resolved. His Toprol and Aricept are on hold. Neurology and cardiology on consult. His COPD is stable, with no sign of current exacerbation. We'll continue to closely follow I performed a history & physical examination of the patient and discussed their management with my nurse practitioner, Deepika Bravo. I reviewed the nurse practitioner's note and agree with the documented findings and plan of care. Lung sounds are clear. The findings and the impression was discussed with the patient. I attest to the documentation by the nurse practitioner. Time with Patient: Greater than 30
--- NOTE | 2017-08-01 16:57 | P.CNNES ---
History of Present Illness Consult date: 08/01/17 Requesting physician: Aminta Durant Reason for Consult: CVA/TIA History of Present Illness: Patient is a pleasant 77-year-old maleis being evaluated by the neurology service today 08/01/2017 per the request of Dr. Durant for CVA/TIA. Patient presented to [facility] with complaints of dizziness and weakness. Patient does have significant history of hypertension, dementia, hyperlipidemia, COPD, cardiomyopathy, and history of CABG. Patient reports recent medication change which was an increase in his Aricept. Patient also complained of right arm weakness, tingling and numbness in the right side of the face. EMS was called and he was brought to [facility] for further investigation. Per the chart, EMS did not notice any neurological deficits. Patient denies any loss of consciousness. Patient denied any headache. He was found to have bradycardia upon admission. Cardizem was discontinued and metoprolol dose was adjusted. Computed tomography scan of the brain was done on admission and showed age-related atrophic changes along with chronic small vessel ischemic changes. Carotid Doppler showed no hemodynamically significant stenosis. Vital signs on admission were temperature 97.4, pulse 48, respiratory rate 18, and blood pressure 148/76.Labs were essentially normal except for elevated glucose of 113 and high triglyceride level of 206. At the time of my evaluation, patient is sitting up in his bed and appears to be in no acute distress. He denies any recurrence of dizziness or numbness and tingling to the face or arm. Review of Systems REVIEW OF SYSTEMS: Otherwise unremarkable and noncontributory. 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 SEVERAL AL'S, BRONCHITIS, DIVERTICULAR DISEASE,CHRONIC BACK PAIN , PROSTATE CA(HAD SX), CONSTIPATION, PALPITATIONS Last Myocardial Infarction Date:: UNK History of Any Multi-Drug Resistant Organisms: None Reported Past Surgical History: Coronary Bypass/CABG, Heart Catheterization With Stent, Prostate Surgery, Tonsillectomy Additional Past Surgical History / Comment(s): CABG TRIOLE VESSEL IN 1988 CABG [id number] IN 1999, THUMB CUT OFF HAD SX TO REATTATCH, COLONOSCOPY, PROSTATECTOMY , RUPTURED ACHILLIES TENDON REPAIR. 5 stents, LEIF CATARACATS Past Anesthesia/Blood Transfusion Reactions: No Reported Reaction Date of Last Stent Placement:: UNK Past Psychological History: Anxiety, Depression Smoking Status: Former smoker Past Alcohol Use History: None Reported Additional Past Alcohol Use History / Comment(s): SMOKED X 30 YEARS 1PPD, QUIT 27 YEARS AGO Past Drug Use History: None Reported - Past Family History Father Family Medical History: Coronary Artery Disease (CAD), CVA/TIA Additional Family Medical History / Comment(s): CABG AND VALVE SX Mother Family Medical History: Dementia, Hypertension Additional Family Medical History / Comment(s): MOM IS ALIVE AT 97 YEARS OLD, LIVING IN [facility] Medications and Allergies Home Medications Medication Instructions Recorded Confirmed Type ALPRAZolam [Xanax] 0.5 mg PO QID PRN 06/28/15 07/31/17 History Acetaminophen Tab [Tylenol] 1,000 mg PO TID PRN 06/28/15 07/31/17 History Donepezil [Aricept] 10 mg PO DAILY 06/28/15 07/31/17 History Venlafaxine HCl [Effexor] 37.5 mg PO BID 06/28/15 07/31/17 History rOPINIRole HCL [Requip] 1 mg PO HS 06/28/15 07/31/17 History Atorvastatin Calcium [Lipitor] 80 mg PO HS 10/26/16 07/31/17 History Temazepam [Restoril] 30 mg PO HS 07/22/17 07/31/17 History Aspirin 81 mg PO BID chew 07/23/17 07/31/17 Rx Losartan [Cozaar] 12.5 mg PO DAILY #30 tab 07/23/17 07/31/17 Rx Metoprolol Succinate (ER) [Toprol 12.5 mg PO DAILY #30 tab.er.24h 07/23/1707/31 Rx XL] Nitroglycerin Sl Tabs [Nitrostat] 0.4 mg SUBLINGUAL Q5M PRN tab 07/23/17 Rx Omeprazole [PriLOSEC] 40 mg PO KIRSTEN-EREN #14 capsule. 07/23/17 07/31/17 Rx Meloxicam [Mobic] 15 mg PO DAILY 07/31/17 07/31/17 History Allergies Allergy/AdvReac Type Severity Reaction Status Date / Time No Known Allergies Allergy Verified 07/31/17 13:13 Physical Examination - Vital Signs Vital Signs: Vital Signs Temp Pulse Pulse Resp BP BP BP 08/01/17 15:50 97.0 F L 70 18 117/59 08/01/17 13:50 96.8 F L 69 18 121/72 08/01/17 12:00 98.7 F 62 71 18 136/76 08/01/17 11:41 98.3 F 67 20 140/79 08/01/17 10:01 71 156/74 08/01/17 09:54 186/84 08/01/17 09:04 64 08/01/17 08:48 63 62 19 08/01/17 08:00 97.6 F 64 18 152/75 08/01/17 07:50 97.4 F L 58 L 18 156/76 08/01/17 07:36 97.4 F L 54 L 19 162/74 08/01/17 05:50 60 150/76 08/01/17 04:00 57 L 18 08/01/17 03:50 70 18 168/79 08/01/17 01:50 50 L 08/01/17 00:00 54 L 18 07/31/17 23:50 54 L 18 152/71 07/31/17 21:50 57 L 18 157/77 07/31/17 20:00 45 L 48 L 18 154/67 07/31/17 19:50 96.9 F L 48 L 18 154/67 07/31/17 17:50 96.7 F L 48 L 18 136/80 07/31/17 16:50 96.7 F L 62 18 148/70 Pulse Ox 08/01/17 15:50 97 08/01/17 13:50 96 08/01/17 12:00 97 08/01/17 11:41 97 08/01/17 10:01 08/01/17 09:54 08/01/17 09:04 08/01/17 08:48 08/01/17 08:00 97 08/01/17 07:50 95 08/01/17 07:36 96 08/01/17 05:50 08/01/17 04:00 08/01/17 03:50 95 08/01/17 01:50 08/01/17 00:00 07/31/17 23:50 96 07/31/17 21:50 95 07/31/17 20:00 96 07/31/17 19:50 96 07/31/17 17:50 98 07/31/17 16:50 99 Intake and Output 08/01/17 08/01/17 08/01/17 06:59 14:59 22:59 Intake Total 180 Balance 180 Intake: Oral 180 Other: Voiding Method Toilet Toilet Urinal # Voids 1 1 Weight 73.7 kg PHYSICAL EXAM: GENERAL APPEARANCE: Patient is a well-developed, male who appears to be in no acute distress. HEENT: Normocephalic, atraumatic, no facial asymmetry is seen. Neck is supple with no masses felt. CARDIOVASCULAR: Regular rate and rhythm. ABDOMEN: Nontender, nondistended. EXTREMITIES: Show no edema or clubbing. NEUROLOGICAL EXAM: Patient is awake, alert, and oriented 3. Speech and language are normal. Strength is full in all 4 extremities. Sensory exam to light touch is normal in all 4 extremities. No facial asymmetry is seen on cranial nerve testing. No pronator drift. No tremors or seizure-like activity noted. Results - Laboratory Findings CBC and BMP: 07/31/17 12:57 08/01/17 06:03 Abnormal Lab Findings: Abnormal Labs 07/31/17 08/01/17 12:57 06:03 Glucose 113 H 102 H Triglycerides 206 H Assessment and Plan Plan: Impression: 1.TIA with episode of right arm weakness and tingling along with facial numbness. 2.Bradycardia 3. CAD with history of CABG 4. hypertension 5. Dementia Recommendation: It does appear that patient had a transient ischemic attack with transient episode of right arm weakness and tingling along with right facial numbness. Computed tomography scan of the brain and carotid Dopplers were reviewed and they showed no significant abnormalities. I will discontinue his aspirin and start him on Plavix 75 mg daily. I recommend continuing Lipitor for statin therapy. I will order a serum homocysteine level and an EEG. Continue neurological checks. I will continue to follow with you. Further recommendations to follow. Thank you, Dr. Durant, for allowing me to participate in the care of your patient. If you have any questions, please feel free to contact me. I performed an examination of the patient and discussed the management with the [facility]. I have reviewed the [facility] notes and agree with the findings and plan of care.
[2017-08-01] MEDS: ATORVASTATIN 80 MG TAB PO SCH (20:59)
--- NOTE | 2017-08-01 22:13 | P.PN ---
Subjective Progress Note Date: 08/01/17 Principal diagnosis: Symptomatic bradycardia Patient is a 77-year-old male with a known history of coronary artery disease and history of bypass graft, cardiomyopathy with ejection fraction 35%, COPD, dementia, hyperlipidemia, hypertension osteoarthritis and multiple other medical problems came to the hospital with complaints of dizziness, weak and not feeling well. Denied any syncopal episode. No headache Patient also felt right arm tingling and numbness in the right side of the face. EMS states he did not notice any neurological deficit. Patient admitted to the hospital recently on 07/23/2017 with dizziness and chest pain and cardiac workup has been negative as a time. Patient was found to have bradycardia. Cardizem has been discontinued and metoprolol dose has been reduced at that time. Patient follows with Dr. Aviles as an outpatient. Otherwise patient denied any nausea vomiting or abdominal pain. No diarrhea. UA negative for infection. Most recent echocardiogram reveals decreased LV function with EF 35%. Most recent Lexiscan performed 05/2017 is negative for reversible cardiac ischemia. Most recent cath done 02/2011 revealed DAI-LAD patent, radial-intermediate patent, LCX closed, RCA 50% stenosis. Most recent holter monitor 05/2017 shows heart rate ranging from 43-113 with average 63. No pauses, midly prolonged [place], occasional intermittent AV node wenkebach block and infrequent PVC's. In the ER patient had chest x-ray showed mild vascular congestion EKG showed sinus bradycardia with first-degree AV block CT head showed chronic small vessel ischemic changes. No acute intracranial process Carotid duplex showed no hemodynamically significant stenosis. 08/01/2017 Patient did improve symptomatically. Cozaar dose has been increased due to uncontrolled hypertension. Continued on telemetry monitoring. Neurology and cardiology is on board. No chest pain no shortness of breath noted. No cough is from production. Heart rate 60-70s All other review of systems negative except above Current medications reviewed Objective - Vital Signs Vital signs: Vital Signs Temp 98.7 F 08/01/17 12:00 Pulse 67 08/01/17 12:00 Resp 20 08/01/17 12:00 BP 136/76 08/01/17 12:00 Pulse Ox 97 08/01/17 12:00 Intake & Output 07/31/17 08/01/17 08/01/17 18:59 06:59 18:59 Intake Total 180 Output Total 400 Balance -400 180 Weight 75.75 kg 73.7 kg Intake: Oral 180 Output: Urine 400 Other: Voiding Method Toilet Toilet Urinal # Voids 1 1 - Exam PHYSICAL EXAMINATION: Patient is lying in the bed comfortably, no acute distress, awake alert and oriented.. HEENT: Normocephalic. Neck is supple. Pupils reactive. Nostrils clear. Oral cavity is moist. Ears reveal no drainage. Neck reveals no JVD, carotid bruits, or thyromegaly. CHEST EXAMINATION: Trachea is central. Symmetrical expansion. Lung olson clear to auscultation and percussion. CARDIAC: Normal S1, S2 with no gallops. No murmurs ABDOMEN: Soft. Bowel sounds normal. No organomegaly. No abdominal bruits. Extremities: reveal no edema. No clubbing or cyanosis Neurologically awake, alert, oriented x3 with well-coordinated movements. No focal deficits noted Skin: No rash or skin lesions. Psychiatric: Coperative. Nonsuicidal Musculoskeletal: No joint swelling or deformity. Normal range of motion. - Labs CBC & Chem 7: 07/31/17 12:57 08/01/17 06:03 Labs: Abnormal Lab Results - Last 24 Hours (Table) 08/01/17 Range/Units 06:03 Glucose 102 H (74-99) mg/dL Triglycerides 206 H (<150) mg/dL Microbiology - Last 24 Hours (Table) 07/31/17 13:36 Urine Culture - Preliminary Urine,Voided Assessment and Plan Assessment: Dizziness and generalized weakness with possible symptomatic bradycardia vs medication change. Metoprolol is on hold. 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 Increase Cozaar dose. Hyperlipidemia Osteoarthritis of multiple joints Dementia History of nicotine dependence DVT prophylaxis Plan: Patient will be continued on telemetry monitoring. We will hold Toprol and Aricept as well. Workup for CVA including CT head and carotid duplex is negative. Neurology and Cardiology is following.. Patient was given IV fluids in the ER was later bolus and continued on gentle hydration. Patient did improve symptomatically. IV fluids have been discontinued. Continue with home medications and further recommendations based on the clinical course. Prognosis is guarded. Time with Patient: Greater than 30
[2017-08-01] MEDS: TEMAZEPAM 30 MG CAP PO PRN (22:33)
[2017-08-01] MEDS: ALPRAZolam 0.5 MG TAB PO PRN (22:33)
[2017-08-02] MEDS: PANTOPRAZOLE 40 MG TABLET PO SCH (07:06)
[2017-08-02] MEDS: ISOSORBIDE MONONITRATE ER 30 MG TAB.ER.24H PO SCH (08:07)
[2017-08-02] MEDS: HEPARIN SODIUM,PORCINE 5,000 UNIT/ML 1 ML VIAL SQ SCH ×2 (08:09→20:54)
[2017-08-02] MEDS: MELOXICAM 7.5 MG TAB PO SCH (08:09)
[2017-08-02] MEDS: CLOPIDOGREL 75 MG TAB PO SCH (08:10)
[2017-08-02] MEDS: LOSARTAN 25 MG TAB PO SCH (08:10)
[2017-08-02] MEDS: VENLAFAXINE HCL 37.5 MG TAB PO SCH ×2 (08:10→20:54)
--- NOTE | 2017-08-02 10:04 | P.PN ---
Subjective Progress Note Date: 08/02/17 This is a pleasant 77-year-old gentleman who follows with Dr. Pfeiffer in the office. He has a known history of coronary artery disease with prior CABG in 1988, in 1999 patient again underwent surgery with a radial artery to the intermediate, in 2010 patient underwent a cardiac catheterization which revealed a patent DAI to the LAD, radial to the intermediate is patent, left circumflex was closed RCA 50% ejection fraction at that time 45-50%. Patient also has history of hypertension, hyperlipidemia, chronic chest pain, depression and mild dementia. He was recently in the hospital on the of this month, he states just prior to that that he had seen Dr. Lazaro in the office and his Cardizem and Plavix were discontinued. Since then the patient states he's been more dizzy, complaining of palpitations, and chest discomfort. Patient presents to the hospital on this occasion with symptoms of right facial numbness, mild visual disturbance, dizziness, and palpitations. Most recent stress test was performed in October 2016 which revealed a large defect along the lateral wall compatible with infarct. Small amount of reversibility was also noted along the anterior wall near the base, this large defect was mostly non-reversible. EKG on arrival here shows a sinus bradycardia with first -degree AV block and ST-T wave changes in the anterior lateral leads. EKG is similar to prior EKGs. At scan of the brain was performed which revealed age- related atrophic and chronic small vessel ischemic change without acute intracranial process noted. Chest x-ray shows pulmonary venous congestion without failure. Carotid Doppler study does not reveal any evidence for hemodynamically significant stenosis. Blood pressure on arrival 148/70, heart rate 48, 100% on room air. Blood pressure this morning 162/70 with a heart rate in the 50s, 96% on room air. CBC normal. Sodium 141, potassium 4.3, chloride 104, BUN 15, creatinine 0.8. Troponins are negative 3. Cholesterol 113, triglycerides 206, LDL 30, HDL 42, TSH 1.7. At the time of my examination this morning, patient states he has no further numbness in his face, no visual disturbance, mild dizziness he does complain of, as well as palpitations. 08/02/2017 Patient seen and examined this morning, denies any further numbness in his face , dizziness is improving. Blood pressure 130/80 heart rate 58, 96% on room air. He has been up ambulating without any difficulty. Objective - Vital Signs Vital signs: Vital Signs Temp 97 F L 08/02/17 08:00 Pulse 56 L 08/02/17 08:00 Resp 17 08/02/17 08:00 BP 130/84 08/02/17 08:00 Pulse Ox 96 08/02/17 08:00 Intake & Output 08/01/17 08/02/17 08/02/17 18:59 06:59 18:59 Intake Total 940 240 Output Total 1000 Balance -60 240 Weight 73.4 kg Intake: Oral 940 240 Output: Urine 1000 Other: Voiding Method Toilet Toilet Urinal Urinal # Voids 1 1 1 - Exam PHYSICAL EXAMINATION: HEENT: Head is atraumatic, normocephalic. Pupils equal, round. Neck is supple. There is no elevated jugular venous pressure. HEART EXAMINATION: Heart S1, S2 normal. No murmur or gallop heard. CHEST EXAMINATION: Lungs are clear to auscultation and precussion. No chest wall tenderness is noted on palpation or with deep breathing. ABDOMEN: Soft, nontender. Bowel sounds are heard. No organomegaly noted. EXTREMITIES: 2+ peripheral pulses with no evidence of peripheral edema and no calf tenderness noted. NEUROLOGIC patient is awake, alert and oriented -3. . - Labs CBC & Chem 7: 07/31/17 12:57 08/01/17 06:03 Labs: Microbiology - Last 24 Hours (Table) 07/31/17 13:36 Urine Culture - Final Urine,Voided Assessment and Plan Plan: Assessment and plan #1 atypical chest discomfort, troponins negative 3. EKG shows sinus bradycardia with anterior lateral ST-T wave changes, similar to prior EKGs. DEXA scan stress test was performed in September of this year which revealed a large defect along the lateral wall compatible with infarct. Small amount of reversibility may be noted along the anterior wall region. #2 left-sided facial numbness with associated dizziness and weakness. CT of the brain does not reveal any acute findings. Patient is noted to be bradycardic on the monitor. Heart rate in the 40s. TSH normal. On Toprol 12-1 /2 mg daily. Recently had his Cardizem discontinued in the office. #3 chronic chest pain syndrome #4 known history of coronary artery disease with prior bypass surgery #5 hypertension #6 hyperlipidemia #7 depression #8 mild dementia #9 ischemic cardiomyopathy, unable to tolerate beta blockers because of bradycardia Plan Patient has been encouraged to be up ambulating in the hallway today, we will continue to hold beta [place] because of the bradycardia. DNP note has been reviewed, I agree with a documented findings and plan of care. Patient was seen and examined.
[2017-08-02] MEDS: ASPIRIN 81 MG PO SCH (10:26)
--- NOTE | 2017-08-02 14:05 | P.PN ---
Subjective Progress Note Date: 08/02/17 Principal diagnosis: Right arm tingling and numbness, right facial numbness Progress note dated 08/02/2017 This is a 77-year-old male who sees one of my partners. He came into the hospital symptomatic bradycardia with lightheadedness and dizziness. He also had symptoms of TIA/CVA with right arm tingling facial numbness. The symptoms have resolved. In addition he has a history of ischemic cardiopathy myopathy with an ejection fraction of 30-35% CAD with previous bypass grafting and percutaneous coronary intervention with stenting COPD hypertension DJD dementia and nicotine dependence. The patient is doing well and states that he might be discharged home. He's not having any additional symptoms. No chest pain or chest discomfort no shortness of breath. No nausea vomiting or diarrhea. No neurologic complaints at this time. Objective - Vital Signs Vital signs: Vital Signs Temp 97.2 F L 08/02/17 11:12 Pulse 86 08/02/17 11:12 Resp 17 08/02/17 11:12 BP 132/71 08/02/17 11:30 Pulse Ox 94 L 08/02/17 11:12 Intake & Output 08/01/17 08/02/17 08/02/17 18:59 06:59 18:59 Intake Total 940 240 Output Total 1000 Balance -60 240 Weight 73.4 kg Intake: Oral 940 240 Output: Urine 1000 Other: Voiding Method Toilet Toilet Urinal Urinal # Voids 1 1 1 - Exam No acute distress, oriented 3. HEENT examination is grossly unremarkable. Mucous membranes are moist. No oral lesions. Neck supple. Full range of motion. No adenopathy thyromegaly or neck vein distention. Cardiovascular examination reveals regular rhythm rate. S1-S2 normal. No S3 or S4. No discernible murmur noted. Lungs reveal clear breath sounds. Her sounds are equal bilaterally. No adventitious lung sounds including wheezes rhonchi or crackles. Abdomen soft bowel sounds are heard. No masses or tenderness. Extremities are intact. No cyanosis clubbing or edema. Skin is without rash or lesion. Neurologic examination is brief but nonfocal. - Labs CBC & Chem 7: 07/31/17 12:57 08/01/17 06:03 Labs: Microbiology - Last 24 Hours (Table) 07/31/17 13:36 Urine Culture - Final Urine,Voided Assessment and Plan Assessment: Assessment Symptomatic bradycardia, with lightheadedness and dizziness, resolved Symptoms consistent with possible TIA, with right arm tingling and facial numbness, resolved Ischemic cardiomyopathy with ejection fraction of 30-35% History of CAD History of previous bypass grafting Previous history of percutaneous coronary intervention with stenting History of mild COPD Hypertension DJD Dementia Should nicotine dependence Plan: Plan dated 08/02/2017 The patient's doing well. His lightheadedness and dizziness has resolved. In addition, his neurologic complaints have resolved. His COPD he is stable. The patient could be discharged. The patient has been seen by neurology and cardiology. No additional recommendations are made. We'll make sure that he follows up with his primary doctor next week. Time with Patient: Less than 30
--- NOTE | 2017-08-02 14:36 | P.PN ---
Subjective Progress Note Date: 08/02/17 Principal diagnosis: Patient is a pleasant 77-year-old male who is being followed by the neurology service for TIA. Patient presented to [facility] complains of dizziness and weakness. Patient did report right arm weakness, numbness and tingling as well as numbness and tingling of the right side of the face. Patient came to [facility] for further investigation. Patient denied any difficulty speaking. He denies difficulty swallowing. Patient did call EMS and states neurological deficits had resolved by the time EMS had arrived. Per the chart, EMS did not notice any neurological deficits. Computed tomography scan of the brain was done on admission which showed age- related atrophy along with chronic small vessel ischemic changes. Carotid Doppler showed no hemodynamically significant stenosis. At the time of my evaluation, patient is sitting up in the chair at the bedside and appears to be in no acute distress. Patient states complete resolution of symptoms. Objective - Vital Signs Vital signs: Vital Signs Temp 97.2 F L 08/02/17 11:12 Pulse 86 08/02/17 11:12 Resp 17 08/02/17 11:12 BP 132/71 08/02/17 11:30 Pulse Ox 94 L 08/02/17 11:12 Intake & Output 08/01/17 08/02/17 08/02/17 18:59 06:59 18:59 Intake Total 940 480 Output Total 1000 Balance -60 480 Weight 73.4 kg Intake: Oral 940 480 Output: Urine 1000 Other: Voiding Method Toilet Toilet Urinal Urinal # Voids 1 1 1 - Exam PHYSICAL EXAM: GENERAL APPEARANCE: Patient is a well-developed, male who appears to be in no acute distress. HEENT: Normocephalic, atraumatic, no facial asymmetry is seen. Neck is supple with no masses felt. CARDIOVASCULAR: Regular rate and rhythm. ABDOMEN: Nontender, nondistended. EXTREMITIES: Show no edema or clubbing. NEUROLOGICAL EXAM: Patient is awake, alert, and oriented 3. Speech and language are normal. Strength is full in all 4 extremities. Sensory exam to light touch is normal in all 4 extremities. No facial asymmetry seen on cranial nerve testing. No seizures or tremor noted. - Labs CBC & Chem 7: 07/31/17 12:57 08/01/17 06:03 Labs: Microbiology - Last 24 Hours (Table) 07/31/17 13:36 Urine Culture - Final Urine,Voided Assessment and Plan Plan: Impression: 1.TIA with episode of right arm weakness and tingling along with facial numbness. 2.Bradycardia 3. CAD with history of CABG 4. hypertension 5. Dementia Recommendation: It does appear that patient had a transient ischemic attack with transient episode of right arm weakness and tingling along with right facial numbness. Computed tomography scan of the brain and carotid Dopplers were reviewed and they showed no significant abnormalities. Patient states complete resolution of symptoms. No new neurological deficits noted. Continue Plavix 75 mg daily. Daily aspirin can be discontinued unless cardiology wants it continued. I recommend continuing Lipitor for statin therapy. EEG was done and results are pending. Serum homocystine level is pending. Continue neurological checks. I will continue to follow with you on an as-needed basis. Patient is stable from a neurological standpoint for discharge. Feel free to call with any questions or concerns. I performed an examination of the patient and discussed the management with the AUTOMATIC CENTRIFUGAL STATION OPERATOR. I have reviewed the AUTOMATIC CENTRIFUGAL STATION OPERATOR notes and agree with the findings and plan of care.
--- NOTE | 2017-08-02 17:19 | EEG ---
ELECTROENCEPHALOGRAM REPORT DATE OF SERVICE: 08/02/2017. REASON FOR TESTING: Transient ischemic attack. DESCRIPTION OF THE PROCEDURE: This EEG was performed using a 21 channel digital electroencephalograph, following international 10-20 system. DESCRIPTION OF THE RECORDING: From the beginning of the tracing, and with patient's eyes closed, the background rhythm was mostly consisting of 9 Hz alpha frequency in the posterior occipital leads. No obvious asymmetry is seen. Photic stimulation was performed with occasional sharp wave activity seen during photic stimulation. No generalized epileptiform activity is noticed. Hyperventilation was not performed. The patient remains awake throughout the tracing. His EKG lead showed a regular rate and rhythm. INTERPRETATION: This awake EEG showed occasional sharp wave activity during photic stimulation. This could be consistent with a reduced seizure threshold. No generalized epileptiform discharges were seen. Clinical correlation is recommended. WALTER / YOMAIRAN: [id number] /
[2017-08-02] MEDS: ATORVASTATIN 80 MG TAB PO SCH (20:54)
[2017-08-02] MEDS: TEMAZEPAM 30 MG CAP PO PRN (20:55)
[2017-08-02] MEDS: ALPRAZolam 0.5 MG TAB PO PRN (20:55)
[2017-08-03] MEDS: PANTOPRAZOLE 40 MG TABLET PO SCH (06:50)
[2017-08-03] MEDS: CLOPIDOGREL 75 MG TAB PO SCH (08:03)
[2017-08-03] MEDS: HEPARIN SODIUM,PORCINE 5,000 UNIT/ML 1 ML VIAL SQ SCH ×2 (08:03→21:01)
[2017-08-03] MEDS: ISOSORBIDE MONONITRATE ER 30 MG TAB.ER.24H PO SCH (08:03)
[2017-08-03] MEDS: LOSARTAN 25 MG TAB PO SCH (08:04)
[2017-08-03] MEDS: VENLAFAXINE HCL 37.5 MG TAB PO SCH ×2 (08:04→21:01)
[2017-08-03] MEDS: ASPIRIN 81 MG PO SCH (08:07)
[2017-08-03] MEDS: MELOXICAM 7.5 MG TAB PO SCH (09:27)
--- NOTE | 2017-08-03 10:28 | P.PN ---
Subjective Principal diagnosis: 77-year-old male patient with ischemic cardiomyopathy and stable heart failure, in need of beta [place] therapy but intolerant of beta blockers because of significant bradycardia which makes him feel poorly weeks and dizzy and lightheaded. This is his second admission for sick sinus syndrome exacerbated by beta blockers. Beta blockers as clinically indicated. I had a very detailed discussion with the patient's daughter regarding management of Sick Sinus Syndrome cardiomyopathy pacemaker is in defibrillators. I recommended a dual-chamber pacemaker with maximal medical therapy for CHF and ischemic cardiopathy. She concurs. The patient already has a DO NOT RESUSCITATE order. There has been a significant mental decline in recent years 2 months and the daughter is very comfortable proceeding with a dual-chamber pacemaker and not an ICD. I will schedule this procedure for him as an inpatient. We will discharge him after permanent pacing and reinstitution of beta blockers Objective - Vital Signs Vital signs: Vital Signs Temp 97.5 F L 08/03/17 08:00 Pulse 71 08/03/17 08:00 Resp 18 08/03/17 08:00 BP 140/69 08/03/17 08:00 Pulse Ox 98 08/03/17 08:00 Intake & Output 08/02/17 08/03/17 08/03/17 18:59 06:59 18:59 Intake Total 720 237 Balance 720 237 Weight 73.2 kg Intake: Oral 720 237 Other: Voiding Method Toilet Urinal # Voids 3 1 1 - Labs CBC & Chem 7: 07/31/17 12:57 08/01/17 06:03
[2017-08-03] MEDS: DOCUSATE 100 MG CAP PO SCH ×2 (11:27→21:01)
[2017-08-03] MEDS: SENNOSIDES 8.6 MG TAB PO SCH (11:47)
--- NOTE | 2017-08-03 13:57 | P.PN ---
Subjective Patient's heart rates have improved after discontinuation of beta blockers. He needs beta blockers for his ischemic cardiomyopathy with a left ventricle ejection fraction that has been chronically reduced at 35%. No dizziness or lightheadedness he but he is ablating in the hallways. He denies any chest discomfort On examination his blood pressure is 134/83 mmHg pulse rate is in the 90s he is afebrile 97.2F And neck examination is normal no murmurs no gallops Breath sounds are clear no rhonchi no crackles Heart sounds S1 and S2 are normal Abdomen is soft nontender Extremities are warm no edema Impression Ischemic cardiomyopathy LV function is chronically reduced at 35% or below Stable CHF class II, systolic [place] Nonsustained ventricular tachycardia on telemetry Sick Sinus Syndrome that is exacerbated by 80 blockers and the patient becomes extremely symptomatic on beta blockers hence necessitating discontinuation of beta blockers. However in view of his current myopathy, and coronary artery disease, ischemic cardiomyopathy which is chronic, beta blockers are essentially for his treatment Suggest After a detailed discussion with his daughter I would recommend dual-chamber pacemaker implantation with reinstitution of beta [place] therapy savanna inhibitors and spironolactone and statins and aspirin He does have gradually progressive dementia and memory loss that has been quite noticeable to his family within the last year She is also agreeable with the plan Objective - Vital Signs Vital signs: Vital Signs Temp 97.2 F L 08/03/17 12:00 Pulse 94 08/03/17 12:00 Resp 17 08/03/17 12:00 BP 134/83 08/03/17 12:00 Pulse Ox 96 08/03/17 12:00 Intake & Output 08/02/17 08/03/17 08/03/17 18:59 06:59 18:59 Intake Total 720 417 Balance 720 417 Weight 73.2 kg Intake: Oral 720 417 Other: Voiding Method Toilet Urinal # Voids 3 1 1 - Labs CBC & Chem 7: 07/31/17 12:57 08/01/17 06:03
--- NOTE | 2017-08-03 14:51 | P.PN ---
Subjective Progress Note Date: 08/03/17 Principal diagnosis: Right arm tingling and numbness, right facial numbness Progress note dated 08/02/2017 This is a 77-year-old male who sees one of my partners. He came into the hospital symptomatic bradycardia with lightheadedness and dizziness. He also had symptoms of TIA/CVA with right arm tingling facial numbness. The symptoms have resolved. In addition he has a history of ischemic cardiopathy myopathy with an ejection fraction of 30-35% CAD with previous bypass grafting and percutaneous coronary intervention with stenting COPD hypertension DJD dementia and nicotine dependence. The patient is doing well and states that he might be discharged home. He's not having any additional symptoms. No chest pain or chest discomfort no shortness of breath. No nausea vomiting or diarrhea. No neurologic complaints at this time. Progress note dated 08/03/2017 This is a 77-year-old male who is admitted with a diagnosis of symptomatic bradycardia with lightheadedness and dizziness. Also, or here in the hospital, the patient had symptoms of TIA/CVA, with right arm tingling and facial numbness. Those symptoms have resolved. The patient was being considered for a possible pacemaker placement because of his bradycardia. That may be done sometime this week. The patient in addition has a history of ischemic heart myopathy with an ejection fraction of 30-35%, CAD with previous bypass grafting and previous percutaneous coronary intervention with stenting, COPD, hypertension, DJD, dementia and nicotine dependence. Because of the anticipated pacemaker, the patient will not be discharged home at this time. The patient not having any additional neurologic complaints. Objective - Vital Signs Vital signs: Vital Signs Temp 97.2 F L 08/03/17 12:00 Pulse 94 08/03/17 12:00 Resp 17 08/03/17 12:00 BP 134/83 08/03/17 12:00 Pulse Ox 96 08/03/17 12:00 Intake & Output 08/02/17 08/03/17 08/03/17 18:59 06:59 18:59 Intake Total 720 417 Balance 720 417 Weight 73.2 kg Intake: Oral 720 417 Other: Voiding Method Toilet Urinal # Voids 3 1 1 - Exam No acute distress, oriented 3. HEENT examination is grossly unremarkable. Mucous membranes are moist. No oral lesions. Neck supple. Full range of motion. No adenopathy thyromegaly or neck vein distention. Cardiovascular examination reveals regular rhythm rate. S1-S2 normal. No S3 or S4. No discernible murmur noted. Lungs reveal clear breath sounds. Her sounds are equal bilaterally. No adventitious lung sounds including wheezes rhonchi or crackles. Abdomen soft bowel sounds are heard. No masses or tenderness. Extremities are intact. No cyanosis clubbing or edema. Skin is without rash or lesion. Neurologic examination is brief but nonfocal. - Labs CBC & Chem 7: 07/31/17 12:57 08/01/17 06:03 Assessment and Plan Assessment: Assessment Symptomatic bradycardia, with lightheadedness and dizziness, resolved Symptoms consistent with possible TIA, with right arm tingling and facial numbness, resolved Ischemic cardiomyopathy with ejection fraction of 30-35% History of CAD History of previous bypass grafting Previous history of percutaneous coronary intervention with stenting History of mild COPD Hypertension DJD Dementia History of nicotine dependence Possible placement of a permanent pacemaker later this week. Plan: Plan dated 08/02/2017 The patient's doing well. His lightheadedness and dizziness has resolved. In addition, his neurologic complaints have resolved. His COPD he is stable. The patient could be discharged. The patient has been seen by neurology and cardiology. No additional recommendations are made. We'll make sure that he follows up with his primary doctor next week. Plan dated 08/03/2017 The patient stable. No additional neurologic complaints. The patient is likely have a pacemaker inserted for symptomatic bradycardia sometime this week. We'll continue to follow. Prognosis is guarded. Time with Patient: Less than 30
[2017-08-03] MEDS: ATORVASTATIN 80 MG TAB PO SCH (21:01)
[2017-08-03] MEDS: TEMAZEPAM 30 MG CAP PO PRN (22:47)
[2017-08-03] MEDS: ALPRAZolam 0.5 MG TAB PO PRN (22:47)
--- NOTE | 2017-08-04 01:34 | P.PN ---
Subjective Progress Note Date: 08/02/17 Principal diagnosis: Symptomatic bradycardia Patient is a 77-year-old male with a known history of coronary artery disease and history of bypass graft, cardiomyopathy with ejection fraction 35%, COPD, dementia, hyperlipidemia, hypertension osteoarthritis and multiple other medical problems came to the hospital with complaints of dizziness, weak and not feeling well. Denied any syncopal episode. No headache Patient also felt right arm tingling and numbness in the right side of the face. EMS states he did not notice any neurological deficit. Patient admitted to the hospital recently on 07/23/2017 with dizziness and chest pain and cardiac workup has been negative as a time. Patient was found to have bradycardia. Cardizem has been discontinued and metoprolol dose has been reduced at that time. Patient follows with Dr. Aviles as an outpatient. Otherwise patient denied any nausea vomiting or abdominal pain. No diarrhea. UA negative for infection. Most recent echocardiogram reveals decreased LV function with EF 35%. Most recent Lexiscan performed 05/2017 is negative for reversible cardiac ischemia. Most recent cath done 02/2011 revealed DAI-LAD patent, radial-intermediate patent, LCX closed, RCA 50% stenosis. Most recent holter monitor 05/2017 shows heart rate ranging from 43-113 with average 63. No pauses, midly prolonged [place], occasional intermittent AV node wenkebach block and infrequent PVC's. In the ER patient had chest x-ray showed mild vascular congestion EKG showed sinus bradycardia with first-degree AV block CT head showed chronic small vessel ischemic changes. No acute intracranial process Carotid duplex showed no hemodynamically significant stenosis. 08/01/2017 Patient did improve symptomatically. Cozaar dose has been increased due to uncontrolled hypertension. Continued on telemetry monitoring. Neurology and cardiology is on board. No chest pain no shortness of breath noted. No cough is from production. Heart rate 60-70s 08/02/2017 Patient denied any complants of dizziness or lightheadedness. o other acute overnight issues. Heart rate is much improvedafter stopping beta blockers.awaiting cardiology final recommendation. All other review of systems negative except above Current medications reviewed Objective - Vital Signs Vital signs: Vital Signs Temp 98.2 F 08/02/17 16:00 Pulse 76 08/02/17 16:00 Resp 17 08/02/17 16:00 BP 112/64 08/02/17 16:00 Pulse Ox 97 08/02/17 16:00 Intake & Output 08/02/17 08/02/17 08/03/17 06:59 18:59 06:59 Intake Total 720 Balance 720 Weight 73.4 kg Intake: Oral 720 Other: Voiding Method Toilet Urinal # Voids 1 3 - Exam PHYSICAL EXAMINATION: Patient is lying in the bed comfortably, no acute distress, awake alert and oriented.. HEENT: Normocephalic. Neck is supple. Pupils reactive. Nostrils clear. Oral cavity is moist. Ears reveal no drainage. Neck reveals no JVD, carotid bruits, or thyromegaly. CHEST EXAMINATION: Trachea is central. Symmetrical expansion. Lung olson clear to auscultation and percussion. CARDIAC: Normal S1, S2 with no gallops. No murmurs ABDOMEN: Soft. Bowel sounds normal. No organomegaly. No abdominal bruits. Extremities: reveal no edema. No clubbing or cyanosis Neurologically awake, alert, oriented x3 with well-coordinated movements. No focal deficits noted Skin: No rash or skin lesions. Psychiatric: Coperative. Nonsuicidal Musculoskeletal: No joint swelling or deformity. Normal range of motion. - Labs CBC & Chem 7: 07/31/17 12:57 08/01/17 06:03 Assessment and Plan Assessment: Dizziness and generalized weakness with possible symptomatic bradycardia / Metoprolol is on hold. 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 Increase Cozaar dose. Hyperlipidemia Osteoarthritis of multiple joints Dementia History of nicotine dependence DVT prophylaxis Plan: Patient will be continued on telemetry monitoring. We will hold Toprol and Aricept as well. Workup for CVA including CT head and carotid duplex is negative. Neurology and Cardiology is following.. Patient was given IV fluids in the ER was later bolus and continued on gentle hydration. Patient did improve symptomatically. IV fluids have been discontinued. Continue with home medications and further recommendations based on the clinical course. Prognosis is guarded.
--- NOTE | 2017-08-04 01:37 | P.PN ---
Subjective Progress Note Date: 08/03/17 Principal diagnosis: Symptomatic bradycardia Patient is a 77-year-old male with a known history of coronary artery disease and history of bypass graft, cardiomyopathy with ejection fraction 35%, COPD, dementia, hyperlipidemia, hypertension osteoarthritis and multiple other medical problems came to the hospital with complaints of dizziness, weak and not feeling well. Denied any syncopal episode. No headache Patient also felt right arm tingling and numbness in the right side of the face. EMS states he did not notice any neurological deficit. Patient admitted to the hospital recently on 07/23/2017 with dizziness and chest pain and cardiac workup has been negative as a time. Patient was found to have bradycardia. Cardizem has been discontinued and metoprolol dose has been reduced at that time. Patient follows with Dr. Aviles as an outpatient. Otherwise patient denied any nausea vomiting or abdominal pain. No diarrhea. UA negative for infection. Most recent echocardiogram reveals decreased LV function with EF 35%. Most recent Lexiscan performed 05/2017 is negative for reversible cardiac ischemia. Most recent cath done 02/2011 revealed DAI-LAD patent, radial-intermediate patent, LCX closed, RCA 50% stenosis. Most recent holter monitor 05/2017 shows heart rate ranging from 43-113 with average 63. No pauses, midly prolonged [place], occasional intermittent AV node wenkebach block and infrequent PVC's. In the ER patient had chest x-ray showed mild vascular congestion EKG showed sinus bradycardia with first-degree AV block CT head showed chronic small vessel ischemic changes. No acute intracranial process Carotid duplex showed no hemodynamically significant stenosis. 08/01/2017 Patient did improve symptomatically. Cozaar dose has been increased due to uncontrolled hypertension. Continued on telemetry monitoring. Neurology and cardiology is on board. No chest pain no shortness of breath noted. No cough is from production. Heart rate 60-70s 08/02/2017 Patient denied any complants of dizziness or lightheadedness. o other acute overnight issues. Heart rate is much improvedafter stopping beta blockers.awaiting cardiology final recommendation. 08/03/2017 since the beta blockers are indicatefor ischemic cardiomyopathy and history of underlyingcoronary artery diseasecardiology is planning forpacemaker placement possibly ontuesday. Otherwisepatient denied anycomplaints of dizziness or light headedness. No nausea vomiting. Patient is able to ambulate in the hallway. All other review of systems negative except above Current medications reviewed Objective - Vital Signs Vital signs: Vital Signs Temp 98.1 F 08/03/17 20:00 Pulse 73 08/03/17 20:00 Resp 16 08/03/17 20:00 BP 143/82 08/03/17 20:00 Pulse Ox 95 08/03/17 21:34 Intake & Output 08/03/17 08/03/17 08/04/17 06:59 18:59 06:59 Intake Total 717 Balance 717 Weight 73.2 kg Intake: Oral 717 Other: Voiding Method Toilet Urinal # Voids 1 3 - Exam PHYSICAL EXAMINATION: Patient is lying in the bed comfortably, no acute distress, awake alert and oriented.. HEENT: Normocephalic. Neck is supple. Pupils reactive. Nostrils clear. Oral cavity is moist. Ears reveal no drainage. Neck reveals no JVD, carotid bruits, or thyromegaly. CHEST EXAMINATION: Trachea is central. Symmetrical expansion. Lung olson clear to auscultation and percussion. CARDIAC: Normal S1, S2 with no gallops. No murmurs ABDOMEN: Soft. Bowel sounds normal. No organomegaly. No abdominal bruits. Extremities: reveal no edema. No clubbing or cyanosis Neurologically awake, alert, oriented x3 with well-coordinated movements. No focal deficits noted Skin: No rash or skin lesions. Psychiatric: Coperative. Nonsuicidal Musculoskeletal: No joint swelling or deformity. Normal range of motion. - Labs CBC & Chem 7: 07/31/17 12:57 08/01/17 06:03 Assessment and Plan Assessment: Dizziness and generalized weakness with possible symptomatic bradycardia / sick sinus syndrome Metoprolol is on hold. Right arm tingling and facial numbness on admission likely due to TIA Ischemic cardiomyopathy ejection fraction 30-35% Coronary artery disease with history of bypass graft COPD not in exacerbation Hypertension uncontrolled. Increased Cozaar dose. Hyperlipidemia Osteoarthritis of multiple joints Dementia History of nicotine dependence Mild cognitive impairment DVT prophylaxis Plan: Patient will be continued on telemetry monitoring. We will hold Toprol and Aricept as well. cardiology is planning for pacemakeron Friday. Workup for CVA including CT head and carotid duplex is negative. Neurology and Cardiology is following.. Patient was given IV fluids in the ER was later bolus and continued on gentle hydration. Patient did improve symptomatically. IV fluids have been discontinued. Continue with home medications and further recommendations based on the clinical course. Prognosis is guarded.
[2017-08-04] MEDS: PANTOPRAZOLE 40 MG TABLET PO SCH (06:39)
[2017-08-04] MEDS: CLOPIDOGREL 75 MG TAB PO SCH (08:28)
[2017-08-04] MEDS: ASPIRIN 81 MG PO SCH (08:28)
[2017-08-04] MEDS: DOCUSATE 100 MG CAP PO SCH ×2 (08:29→22:15)
[2017-08-04] MEDS: ISOSORBIDE MONONITRATE ER 30 MG TAB.ER.24H PO SCH (08:29)
[2017-08-04] MEDS: MELOXICAM 7.5 MG TAB PO SCH (08:29)
[2017-08-04] MEDS: LOSARTAN 25 MG TAB PO SCH (08:29)
[2017-08-04] MEDS: VENLAFAXINE HCL 37.5 MG TAB PO SCH ×2 (08:30→22:15)
[2017-08-04] MEDS: SENNOSIDES 8.6 MG TAB PO SCH (08:30)
[2017-08-04] MEDS: SPIRONOLACTONE 25 MG TAB PO SCH (08:30)
[2017-08-04] MEDS: HEPARIN SODIUM,PORCINE 5,000 UNIT/ML 1 ML VIAL SQ SCH ×2 (08:33→22:15)
--- NOTE | 2017-08-04 15:37 | P.PN ---
Subjective Progress Note Date: 08/04/17 Principal diagnosis: Symptomatic bradycardia, lightheadedness and dizziness, resolved Prateek is a 77-year-old white male patient who follows with Dr. Morales for primary care services, presented to the emergency department on 07/31/2017 at 1249 with complaints of lightheadedness, dizziness, right arm numbness and tingling, and right facial numbness. He called 911, he was noted to be bradycardic when the EMS arrived, but without any new neurological deficit. In the emergency room EKG shows sinus bradycardia with a rate of 42, brain CT showed age-related atrophic and chronic small vessel ischemic changes without any acute intracranial process. Carotid Doppler on 07/31/2017 was negative for any evidence of hemodynamically significant stenosis. Chest x-ray shows pulmonary venous congestion without overt failure. Patient was admitted last week for 24-hour observation with complaints of atypical chest pain, accompanied by dizziness, lightheadedness, generalized weakness, headaches, palpitations. The chest pain was felt to be atypical, troponins were negative 3 during that admission, there were no new EKG changes, his medications were being adjusted per cardiology, specifically his losartan on Toprol were reduced. Patient does have past medical history of ischemic cardiomyopathy, with EF of 30-35%, coronary artery disease with history of coronary artery bypass grafting 2, PCI and stenting, COPD, hypertension, dyslipidemia, dementia , osteoarthritis. Cardiology is following this admission. On today's exam he denies any lightheadedness, dizziness, or numbness in his right arm or face. No focal neurological deficits noted, patient is awake, alert, slightly hesitant with verbal responses. Progress note dated 08/02/2017 This is a 77-year-old male who sees one of my partners. He came into the hospital symptomatic bradycardia with lightheadedness and dizziness. He also had symptoms of TIA/CVA with right arm tingling facial numbness. The symptoms have resolved. In addition he has a history of ischemic cardiopathy myopathy with an ejection fraction of 30-35% CAD with previous bypass grafting and percutaneous coronary intervention with stenting COPD hypertension DJD dementia and nicotine dependence. The patient is doing well and states that he might be discharged home. He's not having any additional symptoms. No chest pain or chest discomfort no shortness of breath. No nausea vomiting or diarrhea. No neurologic complaints at this time. Progress note dated 08/03/2017 This is a 77-year-old male who is admitted with a diagnosis of symptomatic bradycardia with lightheadedness and dizziness. Also, or here in the hospital, the patient had symptoms of TIA/CVA, with right arm tingling and facial numbness. Those symptoms have resolved. The patient was being considered for a possible pacemaker placement because of his bradycardia. That may be done sometime this week. The patient in addition has a history of ischemic heart myopathy with an ejection fraction of 30-35%, CAD with previous bypass grafting and previous percutaneous coronary intervention with stenting, COPD, hypertension, DJD, dementia and nicotine dependence. Because of the anticipated pacemaker, the patient will not be discharged home at this time. The patient not having any additional neurologic complaints. On 08/04/2017 patient's follow-up. She denies any lightheadedness, dizziness, or any left-sided facial numbness or tingling. He has been ambulating and tolerating it well. No focal neurological deficits noted, patient remains afebrile, vital signs are stable, he is on room air with O2 sat at 97%. Cardiology is planning dual-chamber pacemaker implantation and reinstitution of beta [place] therapy. Otherwise no acute complaints, lung sounds are clear, denies any dyspnea. Objective - Vital Signs Vital signs: Vital Signs Temp 96.9 F L 08/04/17 11:40 Pulse 72 08/04/17 11:40 Resp 16 08/04/17 11:40 BP 130/73 08/04/17 11:40 Pulse Ox 97 08/04/17 11:40 Intake & Output 08/03/17 08/04/17 08/04/17 18:59 06:59 18:59 Intake Total 717 600 Balance 717 600 Weight 73.5 kg Intake: Oral 717 600 Other: Voiding Method Toilet Urinal # Voids 3 0 2 - Exam No acute distress, oriented 3. HEENT examination is grossly unremarkable. Mucous membranes are moist. No oral lesions. Neck supple. Full range of motion. No adenopathy thyromegaly or neck vein distention. Cardiovascular examination reveals regular rhythm rate. S1-S2 normal. No S3 or S4. No discernible murmur noted. Lungs reveal clear breath sounds. Her sounds are equal bilaterally. No adventitious lung sounds including wheezes rhonchi or crackles. Abdomen soft bowel sounds are heard. No masses or tenderness. Extremities are intact. No cyanosis clubbing or edema. Skin is without rash or lesion. Neurologic examination is brief but nonfocal. - Labs CBC & Chem 7: 07/31/17 12:57 08/01/17 06:03 Assessment and Plan Plan: Assessment: #1. Symptomatic bradycardia, complaints of lightheadedness dizziness, resolved #2. TIA, with symptoms of right arm tingling and facial numbness, currently resolved #3. Ischemic cardiomyopathy with ejection fraction of 30-35%. #4. Coronary artery disease, history of coronary artery bypass grafting, PCI and stenting #5. COPD, with no signs of current exacerbation #6. Hypertension #7. Osteoarthritis #8. Dementia #9. History of nicotine dependence, currently in remission Plan: No focal neurological deficits, vital signs are stable, ambulating in the hallway, tolerating activity well. Patient is going for implantation of dual- chamber pacemaker by Dr. Santos tomorrow on 08/05/2017. I performed a history & physical examination of the patient and discussed their management with my nurse practitioner, Deepika Bravo. I reviewed the nurse practitioner's note and agree with the documented findings and plan of care. Lung sounds are clear. The findings and the impression was discussed with the patient. I attest to the documentation by the nurse practitioner. Time with Patient: Less than 30
[2017-08-04] MEDS: ATORVASTATIN 80 MG TAB PO SCH (22:15)
[2017-08-04] MEDS: TEMAZEPAM 30 MG CAP PO PRN (23:31)
[2017-08-04] MEDS: ALPRAZolam 0.5 MG TAB PO PRN (23:31)
--- NOTE | 2017-08-04 23:31 | P.PN ---
Subjective Progress Note Date: 08/04/17 Principal diagnosis: Symptomatic bradycardia Patient is a 77-year-old male with a known history of coronary artery disease and history of bypass graft, cardiomyopathy with ejection fraction 35%, COPD, dementia, hyperlipidemia, hypertension osteoarthritis and multiple other medical problems came to the hospital with complaints of dizziness, weak and not feeling well. Denied any syncopal episode. No headache Patient also felt right arm tingling and numbness in the right side of the face. EMS states he did not notice any neurological deficit. Patient admitted to the hospital recently on 07/23/2017 with dizziness and chest pain and cardiac workup has been negative as a time. Patient was found to have bradycardia. Cardizem has been discontinued and metoprolol dose has been reduced at that time. Patient follows with Dr. Aviles as an outpatient. Otherwise patient denied any nausea vomiting or abdominal pain. No diarrhea. UA negative for infection. Most recent echocardiogram reveals decreased LV function with EF 35%. Most recent Lexiscan performed 05/2017 is negative for reversible cardiac ischemia. Most recent cath done 02/2011 revealed DAI-LAD patent, radial-intermediate patent, LCX closed, RCA 50% stenosis. Most recent holter monitor 05/2017 shows heart rate ranging from 43-113 with average 63. No pauses, midly prolonged [place], occasional intermittent AV node wenkebach block and infrequent PVC's. In the ER patient had chest x-ray showed mild vascular congestion EKG showed sinus bradycardia with first-degree AV block CT head showed chronic small vessel ischemic changes. No acute intracranial process Carotid duplex showed no hemodynamically significant stenosis. 08/01/2017 Patient did improve symptomatically. Cozaar dose has been increased due to uncontrolled hypertension. Continued on telemetry monitoring. Neurology and cardiology is on board. No chest pain no shortness of breath noted. No cough is from production. Heart rate 60-70s 08/02/2017 Patient denied any complants of dizziness or lightheadedness. o other acute overnight issues. Heart rate is much improvedafter stopping beta blockers.awaiting cardiology final recommendation. 08/03/2017 since the beta blockers are indicatefor ischemic cardiomyopathy and history of underlyingcoronary artery diseasecardiology is planning forpacemaker placement possibly ontuesday. Otherwisepatient denied anycomplaints of dizziness or light headedness. No nausea vomiting. Patient is able to ambulate in the hallway. 08/04/2017 Patient denied any dizziness or lightheadedness. No complaints of chest pain or shortness of breath. Blood pressure is well controlled. Cardiology is planning for pacemaker placement tomorrow. No other acute overnight issues. All other review of systems negative except above Current medications reviewed Objective - Vital Signs Vital signs: Vital Signs Temp 97.6 F 08/04/17 16:15 Pulse 67 08/04/17 16:15 Resp 18 08/04/17 16:15 BP 130/70 08/04/17 16:15 Pulse Ox 99 08/04/17 16:15 Intake & Output 08/04/17 08/04/17 08/05/17 06:59 18:59 06:59 Intake Total 1080 Balance 1080 Weight 73.5 kg Intake: Oral 1080 Other: Voiding Method Toilet Urinal # Voids 0 1 - Exam PHYSICAL EXAMINATION: Patient is lying in the bed comfortably, no acute distress, awake alert and oriented.. HEENT: Normocephalic. Neck is supple. Pupils reactive. Nostrils clear. Oral cavity is moist. Ears reveal no drainage. Neck reveals no JVD, carotid bruits, or thyromegaly. CHEST EXAMINATION: Trachea is central. Symmetrical expansion. Lung olson clear to auscultation and percussion. CARDIAC: Normal S1, S2 with no gallops. No murmurs ABDOMEN: Soft. Bowel sounds normal. No organomegaly. No abdominal bruits. Extremities: reveal no edema. No clubbing or cyanosis Neurologically awake, alert, oriented x3 with well-coordinated movements. No focal deficits noted Skin: No rash or skin lesions. Psychiatric: Coperative. Nonsuicidal Musculoskeletal: No joint swelling or deformity. Normal range of motion. - Labs CBC & Chem 7: 07/31/17 12:57 08/01/17 06:03 Assessment and Plan Assessment: Dizziness and generalized weakness with possible symptomatic bradycardia / sick sinus syndrome Metoprolol is on hold. Right arm tingling and facial numbness on admission likely due to TIA Ischemic cardiomyopathy ejection fraction 30-35% Coronary artery disease with history of bypass graft COPD not in exacerbation Hypertension uncontrolled. Increased Cozaar dose. Hyperlipidemia Osteoarthritis of multiple joints Dementia History of nicotine dependence Mild cognitive impairment DVT prophylaxis Plan: Patient will be continued on telemetry monitoring. We will hold Toprol and Aricept as well. cardiology is planning for pacemaker on Friday. Workup for CVA including CT head and carotid duplex is negative. Neurology and Cardiology is following.. Patient was given IV fluids in the ER was later bolus and continued on gentle hydration. Patient did improve symptomatically. IV fluids have been discontinued. Continue with home medications and further recommendations based on the clinical course. Prognosis is guarded.
[2017-08-05] MEDS: PANTOPRAZOLE 40 MG TABLET PO SCH (06:01)
[2017-08-05 06:27] LABS: Basophils % (A) 1 %; Eosinophils # (A) 0.2 k/uL (0-0.7); Eosinophils % (A) 3 %; HCT 44.9 % (39.0-53.0); HGB 15.2 gm/dL (13.0-17.5); Lymphocytes % (A) 31 %; MCH 31.8 pg (25.0-35.0); MCHC 33.7 g/dL (31.0-37.0); MCV 94.2 fL (80.0-100.0); Mean Platelet Volume 8.3; Monocytes # (A) 0.5 k/uL (0-1.0); Monocytes % (A) 7 %; Neutrophils # (A) 3.6 k/uL (1.3-7.7); Neutrophils % (A) 55 %; Platelet Count 163 k/uL (150-450); RBC 4.77 m/uL (4.30-5.90); RDW 13.5 % (11.5-15.5); WBC 6.5 k/uL (3.8-10.6)
[2017-08-05] MEDS: CLOPIDOGREL 75 MG TAB PO SCH (06:34)
[2017-08-05] MEDS: ASPIRIN 81 MG PO SCH ×2 (06:34→20:13)
[2017-08-05] MEDS: ISOSORBIDE MONONITRATE ER 30 MG TAB.ER.24H PO SCH (06:34)
[2017-08-05] MEDS: LOSARTAN 25 MG TAB PO SCH (06:34)
[2017-08-05] MEDS: VENLAFAXINE HCL 37.5 MG TAB PO SCH ×2 (06:35→20:14)
[2017-08-05] MEDS: MELOXICAM 7.5 MG TAB PO SCH (06:35)
[2017-08-05] MEDS: SPIRONOLACTONE 25 MG TAB PO SCH (06:35)
[2017-08-05 06:43] LABS: Anion Gap 9 mmol/L; Blood Urea Nitrogen 22 mg/dL (9-20); Calcium 9.6 mg/dL (8.4-10.2); Carbon Dioxide 30 mmol/L (22-30); Chloride 100 mmol/L (98-107); Glucose 105 mg/dL (74-99); Potassium 3.9 mmol/L (3.5-5.1); Sodium 139 mmol/L (137-145)
[2017-08-05] MEDS ORDERED: IV FLUID CONTINUATION 350 ML IV ONE (12:17)
[2017-08-05] MEDS ORDERED: IV FLUID CONTINUATION 400 ML IV ONE (12:17)
[2017-08-05] MEDS ORDERED: ceFAZolin IN SWFI 2 GM/20 ML SYRINGE IVP ONE (12:34)
[2017-08-05] MEDS ORDERED: IODIXANOL 320 MG/ML 100 ML IV ONE ×2 (12:37→13:07)
[2017-08-05] MEDS ORDERED: MIDAZOLAM 2 MG/2 ML VIAL ONE (12:43)
[2017-08-05] MEDS: ceFAZolin 1,000 MG in SODIUM CHLORIDE 0.9% IRRIGATIO 250 ML IRRIGATION ONE ×2 (12:43→14:11)
[2017-08-05] MEDS ORDERED: MIDAZOLAM 2 MG/2 ML VIAL IV ONE (12:49)
[2017-08-05] MEDS ORDERED: fentaNYL (PF) 50 MCG/ML 2 ML AMP ONE (12:56)
[2017-08-05] MEDS ORDERED: fentaNYL (PF) 50 MCG/ML 2 ML AMP IV ONE (12:57)
[2017-08-05] MEDS ORDERED: HYDROcodone/APAP 5-325MG 1 EACH TAB PO PRN (13:49)
[2017-08-05] MEDS ORDERED: ACETAMINOPHEN TAB 325 MG TAB PO PRN (13:49)
[2017-08-05] MEDS ORDERED: ACETAMINOPHEN IV (For NPO) 1,000 MG in EMPTY BAG 1 BAG IVPB ONE (13:49)
[2017-08-05] MEDS: HEPARIN SODIUM,PORCINE 5,000 UNIT/ML 1 ML VIAL SQ SCH ×2 (14:09→20:13)
--- NOTE | 2017-08-05 14:49 | PCN ---
PROCEDURE NOTE A 77-year-old male patient with a history of symptomatic sick sinus syndrome, intolerant to beta blockers. Patient needs beta blockers on account of moderate to severe cardiomyopathy, ischemic in nature, underlying coronary artery disease, old [place]. After a detailed discussion with the patient and his daughter, the decision made to implant a dual-chamber pacemaker and beta [place] therapy thereafter. Patient brought to the EP Lab in a fasting state. Written informed consent was obtained prior to the procedure. The left shoulder area was prepped and draped as per protocol; 1% lidocaine was used for local anesthesia. A 3 cm incision was made parallel to the deltopectoral groove, about 1.5 cm medial to it. The incision was carried down to the level of the pectoralis muscle. A subfascial pocket was made. Hemostasis was assured. The left axillary vein was accessed, the left pectoral area was prepped and draped. The left pectoral area was prepped, two venous sheaths were placed in the right femoral vein via these 2 diagnostic catheters placed in the right heart. The atrial lead was a 45 cm passive lead model #7735, serial #[id number]. This was placed in the right atrial appendage stump and it was stable with deep breathing and coughing. P waves were 2.5 mV, pacing threshold 0.7 V at 0.5 milliseconds, pacing impedance of 582 ohms. 10 V test was negative. The RV lead was [employer] passive lead, 59 cm in length and serial #[id number], model #7732. This was placed in the RV apex. R-waves 10.9 mV, pacing threshold 0.5 V at 0.5 milliseconds. Pacing impedance of 765 ohms, 10 V test is negative. Both leads secured to the underlying pectoralis fascia using 2 g of nonabsorbable sutures. Pocket was irrigated with antibiotic solution. Leads were connected to the generator. [facility] model #L111, serial #[id number], the leads and generator were placed in subfascial pocket and the wound was closed in 3 layers and dressed per protocol. RESULTS: Successful dual chamber pacemaker implantation for symptomatic sick sinus syndrome. PLAN: Restart metoprolol succinate 50 mg p.o. daily and restart lisinopril 5 mg p.o. daily. [facility] up with the [facility] in 5 days. MMODL / IJN: [id number] /
[2017-08-05] MEDS: SENNOSIDES 8.6 MG TAB PO SCH (14:51)
[2017-08-05] MEDS: DOCUSATE 100 MG CAP PO SCH ×2 (14:51→20:13)
[2017-08-05] MEDS: METOPROLOL SUCCINATE (ER) 50 MG TAB.ER.24H PO SCH (14:52)
--- NOTE | 2017-08-05 15:01 | P.PN ---
<Deepika Bravo M - Last Filed: 08/05/17 14:56> Subjective Progress Note Date: 08/05/17 Principal diagnosis: Symptomatic bradycardia, lightheadedness and dizziness, resolved Prateek is a 77-year-old white male patient who follows with Dr. Morales for primary care services, presented to the emergency department on 07/31/2017 at 1249 with complaints of lightheadedness, dizziness, right arm numbness and tingling, and right facial numbness. He called 911, he was noted to be bradycardic when the EMS arrived, but without any new neurological deficit. In the emergency room EKG shows sinus bradycardia with a rate of 42, brain CT showed age-related atrophic and chronic small vessel ischemic changes without any acute intracranial process. Carotid Doppler on 07/31/2017 was negative for any evidence of hemodynamically significant stenosis. Chest x-ray shows pulmonary venous congestion without overt failure. Patient was admitted last week for 24-hour observation with complaints of atypical chest pain, accompanied by dizziness, lightheadedness, generalized weakness, headaches, palpitations. The chest pain was felt to be atypical, troponins were negative 3 during that admission, there were no new EKG changes, his medications were being adjusted per cardiology, specifically his losartan on Toprol were reduced. Patient does have past medical history of ischemic cardiomyopathy, with EF of 30-35%, coronary artery disease with history of coronary artery bypass grafting 2, PCI and stenting, COPD, hypertension, dyslipidemia, dementia , osteoarthritis. Cardiology is following this admission. On today's exam he denies any lightheadedness, dizziness, or numbness in his right arm or face. No focal neurological deficits noted, patient is awake, alert, slightly hesitant with verbal responses. Progress note dated 08/02/2017 This is a 77-year-old male who sees one of my partners. He came into the hospital symptomatic bradycardia with lightheadedness and dizziness. He also had symptoms of TIA/CVA with right arm tingling facial numbness. The symptoms have resolved. In addition he has a history of ischemic cardiopathy myopathy with an ejection fraction of 30-35% CAD with previous bypass grafting and percutaneous coronary intervention with stenting COPD hypertension DJD dementia and nicotine dependence. The patient is doing well and states that he might be discharged home. He's not having any additional symptoms. No chest pain or chest discomfort no shortness of breath. No nausea vomiting or diarrhea. No neurologic complaints at this time. Progress note dated 08/03/2017 This is a 77-year-old male who is admitted with a diagnosis of symptomatic bradycardia with lightheadedness and dizziness. Also, or here in the hospital, the patient had symptoms of TIA/CVA, with right arm tingling and facial numbness. Those symptoms have resolved. The patient was being considered for a possible pacemaker placement because of his bradycardia. That may be done sometime this week. The patient in addition has a history of ischemic heart myopathy with an ejection fraction of 30-35%, CAD with previous bypass grafting and previous percutaneous coronary intervention with stenting, COPD, hypertension, DJD, dementia and nicotine dependence. Because of the anticipated pacemaker, the patient will not be discharged home at this time. The patient not having any additional neurologic complaints. On 08/04/2017 patient's follow-up. She denies any lightheadedness, dizziness, or any left-sided facial numbness or tingling. He has been ambulating and tolerating it well. No focal neurological deficits noted, patient remains afebrile, vital signs are stable, he is on room air with O2 sat at 97%. Cardiology is planning dual-chamber pacemaker implantation and reinstitution of beta [place] therapy. Otherwise no acute complaints, lung sounds are clear, denies any dyspnea. On 08/05/2017 patient is seen after implantation of dual-chamber pacemaker for symptomatic sick sinus syndrome. Doing very well, awake, alert, denies any acute distress. Lung sounds are clear to auscultation. He sitting up in bed, with left arm in the sling. Left upper chest incision is clean dry and intact, no signs of hematoma. Vital signs are stable, currently on room air with O2 sat at 96%. Objective - Vital Signs Vital signs: Vital Signs Temp 97.9 F 08/05/17 14:04 Pulse 90 08/05/17 14:34 Resp 18 08/05/17 14:04 BP 134/84 08/05/17 14:34 Pulse Ox 96 08/05/17 14:04 Intake & Output 08/04/17 08/05/17 08/05/17 18:59 06:59 18:59 Intake Total 1080 350 Output Total 175 Balance 1080 175 Weight 72.8 kg Intake: IV 350 Oral 1080 0 Output: Urine 175 Other: Voiding Method Toilet Toilet Urinal Urinal # Voids 1 1 0 - Exam No acute distress, oriented 3. HEENT examination is grossly unremarkable. Mucous membranes are moist. No oral lesions. Neck supple. Full range of motion. No adenopathy thyromegaly or neck vein distention. Cardiovascular examination reveals regular rhythm rate. S1-S2 normal. No S3 or S4. No discernible murmur noted. Chest: Left upper chest incision is covered with a dressing, patient is status post dual-chamber permanent pacemaker implantation Lungs reveal clear breath sounds. Her sounds are equal bilaterally. No adventitious lung sounds including wheezes rhonchi or crackles. Abdomen soft bowel sounds are heard. No masses or tenderness. Extremities are intact. No cyanosis clubbing or edema. Skin is without rash or lesion. Neurologic examination is brief but nonfocal. - Labs CBC & Chem 7: 08/05/17 05:56 08/05/17 05:56 Labs: Abnormal Lab Results - Last 24 Hours (Table) 08/05/17 Range/Units 05:56 BUN 22 H (9-20) mg/dL Glucose 105 H (74-99) mg/dL Assessment and Plan Plan: Assessment: #1. Symptomatic bradycardia, complaints of lightheadedness dizziness, patient is status post dual-chamber permanent pacemaker implantation, postop day 0 #2. TIA, with symptoms of right arm tingling and facial numbness, currently resolved #3. Ischemic cardiomyopathy with ejection fraction of 30-35%. #4. Coronary artery disease, history of coronary artery bypass grafting, PCI and stenting #5. COPD, with no signs of current exacerbation #6. Hypertension #7. Osteoarthritis #8. Dementia #9. History of nicotine dependence, currently in remission Plan: Patient is seen post permanent pacemaker implantation, doing very well, tolerated the procedure very well. No focal neurological deficits. Vital signs are stable, denies any distress. Denies any respiratory difficulty. We' ll continue to follow closely, anticipate discharge in next 24 hours. I performed a history & physical examination of the patient and discussed their management with my nurse practitioner, Deepika Bravo. I reviewed the nurse practitioner's note and agree with the documented findings and plan of care. Lung sounds are clear. The findings and the impression was discussed with the patient. I attest to the documentation by the nurse practitioner. Time with Patient: Less than 30 <Sher Carr - Last Filed: 08/05/17 19:18> Objective - Vital Signs Vital signs: Vital Signs Temp 97.9 F 08/05/17 14:04 Pulse 78 08/05/17 17:34 Resp 18 08/05/17 14:04 BP 143/67 08/05/17 17:34 Pulse Ox 96 08/05/17 14:04 Intake & Output 08/05/17 08/05/17 08/06/17 06:59 18:59 06:59 Intake Total 888 Output Total 175 Balance 713 Weight 72.8 kg Intake: IV 350 Oral 538 Output: Urine 175 Other: Voiding Method Toilet Urinal # Voids 1 0 - Labs CBC & Chem 7: 08/05/17 05:56 08/05/17 05:56 Labs: Abnormal Lab Results - Last 24 Hours (Table) 08/05/17 Range/Units 05:56 BUN 22 H (9-20) mg/dL Glucose 105 H (74-99) mg/dL Assessment and Plan Plan: This is a joint evaluation with the nurse practitioner. The patient underwent a successful dual-chamber pacemaker implantation for sick sinus syndrome. The patient will restart metoprolol 50 mg by mouth daily. We'll continue to follow.
[2017-08-05] MEDS: ceFAZolin IN SWFI 2 GM/20 ML SYRINGE IVP SCH ×2 (17:42→22:37)
[2017-08-05] MEDS: ATORVASTATIN 80 MG TAB PO SCH (20:13)
--- NOTE | 2017-08-05 20:40 | PN ---
PROGRESS NOTE BRIEF HISTORY: This is a 77-year-old male patient admitted to the hospital with tachy-james syndrome. The patient is being followed by Cardiology and Pulmonary. Patient also had symptoms of TIA with right arm tingling and numbness, which have which have since resolved. The patient is status post pacemaker insertion. He is sitting up in bed, in no acute distress. VITAL SIGNS: Temperature of 97.9, pulse 90, respirations 18, blood pressure 134/84, O2 saturation 96%. GENERAL: Patient is awake, alert, oriented x3, in no acute distress. HEENT: Atraumatic, normocephalic. Pupils equal and reactive to light. Extraocular movements are intact. Buccal mucosa is moist. NECK: Neck is supple without any goiter or lymphadenopathy. JVD is negative. No carotid bruit heard. RESPIRATORY: Lungs are clear to auscultate. No rales, rhonchi or wheezes. CARDIOVASCULAR: Heart is regular rate and rhythm without any murmurs, gallop rhythm. CHEST: Left upper incision is covered with dressing which is dry. GI/ABDOMEN: Abdomen is soft and nontender, nondistended. Bowel sounds positive. EXTREMITIES: No edema, clubbing or cyanosis. Pulses are palpable. Skin is intact without rashes or pigmentation. NEUROLOGICAL: Patient is awake, alert, oriented x3. He has cranial nerves 2-12 grossly intact. LABS: Chemical profile sodium 139, potassium 3.9, chloride 100, bicarb 30, BUN 22, creatinine 0.9, glucose 105. CBC, white blood count of 6.5, hemoglobin 15.2, hematocrit 44.9 and platelet count of 163. ASSESSMENT: 1. Symptomatic tachy-james syndrome. Patient status post dual-chamber permanent pacemaker insertion. 2. Transient ischemic attack. It is clinically resolved. 3. Ischemic cardiomyopathy. Patient has an ejection fraction of 30%-35%. Cardiology is following. 4. Coronary artery disease. Patient is status post bypass grafting percutaneous intervention and stent placement, clinically stable. 5. Chronic obstructive pulmonary disease, clinically stable, not in exacerbation. 6. Hypertension, remains stable on home medications. 7. Osteoarthritis, not in exacerbation. 8. Dementia. The patient is stable on home regimen. 9. Nicotine dependence. PLAN: Patient is status post permanent pacemaker implantation. Planis to continue with telemetry monitoring, continue with all current medications, possible discharge in next 24 hours. MMODL / IJN: [id number] /
[2017-08-05] MEDS ORDERED: ATORVASTATIN 80 MG TAB PO SCH (21:00)
[2017-08-05] MEDS: TEMAZEPAM 30 MG CAP PO PRN (22:37)
[2017-08-05] MEDS: ALPRAZolam 0.5 MG TAB PO PRN (22:37)
[2017-08-06 06:25] VITALS: RESP 18
[2017-08-06] MEDS: PANTOPRAZOLE 40 MG TABLET PO SCH (06:44)
[2017-08-06] MEDS: ceFAZolin IN SWFI 2 GM/20 ML SYRINGE IVP SCH ×2 (06:44→11:19)
--- NOTE | 2017-08-06 08:04 | XR ---
EXAMINATION TYPE: XR chest 2V DATE OF EXAM: 08/06/2017 COMPARISON: Chest x-ray July 31, 2017. HISTORY: History of COPD and stents and open heart surgery presents after pacemaker insertion. TECHNIQUE: Frontal and lateral views of the chest are obtained. FINDINGS: Post-CABG changes with mediastinal clips and sternal wires is redemonstrated. There is new dual lead pacemaker with leads projecting into right atrium and right ventricle. There is chronic par enchymal change without suspicious new focal air space opacity, pleural effusion, or pneumothorax see n. The cardiac silhouette size is within normal limits with atherosclerotic aorta redemonstrated. The osseous structures are intact. IMPRESSION: New dual lead pacemaker with leads in right atrium and right ventricle. No radiographic evidence of complication related to pacemaker placement.
[2017-08-06] MEDS: DOCUSATE 100 MG CAP PO SCH (08:05)
[2017-08-06] MEDS: SENNOSIDES 8.6 MG TAB PO SCH (08:06)
[2017-08-06] MEDS: ASPIRIN 81 MG PO SCH (08:07)
[2017-08-06] MEDS: MELOXICAM 7.5 MG TAB PO SCH (08:07)
[2017-08-06] MEDS: VENLAFAXINE HCL 37.5 MG TAB PO SCH (08:07)
[2017-08-06] MEDS: METOPROLOL SUCCINATE (ER) 50 MG TAB.ER.24H PO SCH (08:07)
[2017-08-06] MEDS: SPIRONOLACTONE 25 MG TAB PO SCH (08:07)
[2017-08-06] MEDS: LOSARTAN 25 MG TAB PO SCH (08:07)
[2017-08-06] MEDS: CLOPIDOGREL 75 MG TAB PO SCH (08:07)
[2017-08-06] MEDS: ISOSORBIDE MONONITRATE ER 30 MG TAB.ER.24H PO SCH (08:08)
[2017-08-06] MEDS: HEPARIN SODIUM,PORCINE 5,000 UNIT/ML 1 ML VIAL SQ SCH (08:08)
[2017-08-06] MEDS ORDERED: DONEPEZIL 10 MG TAB PO SCH (09:00)
[2017-08-06] MEDS ORDERED: LISINOPRIL 5 MG TAB PO SCH (09:00)
[2017-08-06 11:50] VITALS: BP 119/73; PULSE 60; TEMP 97.1
--- NOTE | 2017-08-06 12:56 | P.PN ---
Subjective Progress Note Date: 08/06/17 This is a pleasant 77-year-old gentleman who follows with Dr. Pfeiffer in the office. He has a known history of coronary artery disease with prior CABG in 1988, in 1999 patient again underwent surgery with a radial artery to the intermediate, in 2010 patient underwent a cardiac catheterization which revealed a patent DAI to the LAD, radial to the intermediate is patent, left circumflex was closed RCA 50% ejection fraction at that time 45-50%. Patient also has history of hypertension, hyperlipidemia, chronic chest pain, depression and mild dementia. He was recently in the hospital on the of this month, he states just prior to that that he had seen Dr. Lazaro in the office and his Cardizem and Plavix were discontinued. Since then the patient states he's been more dizzy, complaining of palpitations, and chest discomfort. Patient presents to the hospital on this occasion with symptoms of right facial numbness, mild visual disturbance, dizziness, and palpitations. Most recent stress test was performed in October 2016 which revealed a large defect along the lateral wall compatible with infarct. Small amount of reversibility was also noted along the anterior wall near the base, this large defect was mostly non-reversible. EKG on arrival here shows a sinus bradycardia with first -degree AV block and ST-T wave changes in the anterior lateral leads. EKG is similar to prior EKGs. At scan of the brain was performed which revealed age- related atrophic and chronic small vessel ischemic change without acute intracranial process noted. Chest x-ray shows pulmonary venous congestion without failure. Carotid Doppler study does not reveal any evidence for hemodynamically significant stenosis. Blood pressure on arrival 148/70, heart rate 48, 100% on room air. Blood pressure this morning 162/70 with a heart rate in the 50s, 96% on room air. CBC normal. Sodium 141, potassium 4.3, chloride 104, BUN 15, creatinine 0.8. Troponins are negative 3. Cholesterol 113, triglycerides 206, LDL 30, HDL 42, TSH 1.7. At the time of my examination this morning, patient states he has no further numbness in his face, no visual disturbance, mild dizziness he does complain of, as well as palpitations. 08/02/2017 Patient seen and examined this morning, denies any further numbness in his face , dizziness is improving. Blood pressure 130/80 heart rate 58, 96% on room air. He has been up ambulating without any difficulty. 08/06/2017 Patient is status post implantation of a permanent pacemaker yesterday, device was interrogated this morning and is functioning appropriately. Chest x-ray was reviewed and does not reveal any evidence of a pneumothorax. The patient has been up ambulating in the hallway today, he is hemodynamically stable. Objective - Vital Signs Vital signs: Vital Signs Temp 97.1 F L 08/06/17 11:00 Pulse 60 08/06/17 11:00 Resp 18 08/06/17 11:00 BP 119/73 08/06/17 11:00 Pulse Ox 97 08/06/17 11:00 Intake & Output 08/05/17 08/06/17 08/06/17 18:59 06:59 18:59 Intake Total 888 180 Output Total 175 300 Balance 713 -300 180 Weight 73.7 kg Intake: IV 350 Oral 538 180 Output: Urine 175 300 Other: Voiding Method Toilet Toilet Urinal Urinal # Voids 0 1 - Exam PHYSICAL EXAMINATION: HEENT: Head is atraumatic, normocephalic. Pupils equal, round. Neck is supple. There is no elevated jugular venous pressure. HEART EXAMINATION: Heart S1, S2 normal. No murmur or gallop heard. CHEST EXAMINATION: Lungs are clear to auscultation and precussion. No chest wall tenderness is noted on palpation or with deep breathing. Site of pacemaker implantation, dressing is dry and intact. ABDOMEN: Soft, nontender. Bowel sounds are heard. No organomegaly noted. EXTREMITIES: 2+ peripheral pulses with no evidence of peripheral edema and no calf tenderness noted. NEUROLOGIC patient is awake, alert and oriented -3. . - Labs CBC & Chem 7: 08/05/17 05:56 08/05/17 05:56 Assessment and Plan Plan: Assessment and plan #1 atypical chest discomfort, troponins negative 3. EKG shows sinus bradycardia with anterior lateral ST-T wave changes, similar to prior EKGs. DEXA scan stress test was performed in September of this year which revealed a large defect along the lateral wall compatible with infarct. Small amount of reversibility may be noted along the anterior wall region. #2 left-sided facial numbness with associated dizziness and weakness. CT of the brain does not reveal any acute findings. Patient is noted to be bradycardic on the monitor. Heart rate in the 40s. TSH normal. On Toprol 12-1 /2 mg daily. Recently had his Cardizem discontinued in the office. #3 chronic chest pain syndrome #4 known history of coronary artery disease with prior bypass surgery #5 hypertension #6 hyperlipidemia #7 depression #8 mild dementia #9 ischemic cardiomyopathy, unable to tolerate beta blockers because of bradycardia Plan Patient underwent implantation of a permanent pacemaker yesterday, device was interrogated this morning and is functioning appropriately. Chest x-ray was reviewed and does not reveal any evidence of a pneumothorax. He may be able to be discharged home today from cardiology's perspective to follow-up in the office and device clinic in one week. DNP note has been reviewed, I agree with a documented findings and plan of care. Patient was seen and examined.
--- NOTE | 2017-08-06 15:16 | P.PN ---
<Domi Forbes - Last Filed: 08/06/17 15:11> Subjective Progress Note Date: 08/06/17 Principal diagnosis: Symptomatic bradycardia with dizziness and lightheadedness Prateek is a 77-year-old white male patient who follows with Dr. Morales for primary care services, presented to the emergency department on 07/31/2017 at 1249 with complaints of lightheadedness, dizziness, right arm numbness and tingling, and right facial numbness. He called 911, he was noted to be bradycardic when the EMS arrived, but without any new neurological deficit. In the emergency room EKG shows sinus bradycardia with a rate of 42, brain CT showed age-related atrophic and chronic small vessel ischemic changes without any acute intracranial process. Carotid Doppler on 07/31/2017 was negative for any evidence of hemodynamically significant stenosis. Chest x-ray shows pulmonary venous congestion without overt failure. Patient was admitted last week for 24-hour observation with complaints of atypical chest pain, accompanied by dizziness, lightheadedness, generalized weakness, headaches, palpitations. The chest pain was felt to be atypical, troponins were negative 3 during that admission, there were no new EKG changes, his medications were being adjusted per cardiology, specifically his losartan on Toprol were reduced. Patient does have past medical history of ischemic cardiomyopathy, with EF of 30-35%, coronary artery disease with history of coronary artery bypass grafting 2, PCI and stenting, COPD, hypertension, dyslipidemia, dementia , osteoarthritis. Cardiology is following this admission. On today's exam he denies any lightheadedness, dizziness, or numbness in his right arm or face. No focal neurological deficits noted, patient is awake, alert, slightly hesitant with verbal responses. Progress note dated 08/02/2017 This is a 77-year-old male who sees one of my partners. He came into the hospital symptomatic bradycardia with lightheadedness and dizziness. He also had symptoms of TIA/CVA with right arm tingling facial numbness. The symptoms have resolved. In addition he has a history of ischemic cardiopathy myopathy with an ejection fraction of 30-35% CAD with previous bypass grafting and percutaneous coronary intervention with stenting COPD hypertension DJD dementia and nicotine dependence. The patient is doing well and states that he might be discharged home. He's not having any additional symptoms. No chest pain or chest discomfort no shortness of breath. No nausea vomiting or diarrhea. No neurologic complaints at this time. Progress note dated 08/03/2017 This is a 77-year-old male who is admitted with a diagnosis of symptomatic bradycardia with lightheadedness and dizziness. Also, or here in the hospital, the patient had symptoms of TIA/CVA, with right arm tingling and facial numbness. Those symptoms have resolved. The patient was being considered for a possible pacemaker placement because of his bradycardia. That may be done sometime this week. The patient in addition has a history of ischemic heart myopathy with an ejection fraction of 30-35%, CAD with previous bypass grafting and previous percutaneous coronary intervention with stenting, COPD, hypertension, DJD, dementia and nicotine dependence. Because of the anticipated pacemaker, the patient will not be discharged home at this time. The patient not having any additional neurologic complaints. On 08/04/2017 patient's follow-up. She denies any lightheadedness, dizziness, or any left-sided facial numbness or tingling. He has been ambulating and tolerating it well. No focal neurological deficits noted, patient remains afebrile, vital signs are stable, he is on room air with O2 sat at 97%. Cardiology is planning dual-chamber pacemaker implantation and reinstitution of beta [place] therapy. Otherwise no acute complaints, lung sounds are clear, denies any dyspnea. On 08/05/2017 patient is seen after implantation of dual-chamber pacemaker for symptomatic sick sinus syndrome. Doing very well, awake, alert, denies any acute distress. Lung sounds are clear to auscultation. He sitting up in bed, with left arm in the sling. Left upper chest incision is clean dry and intact, no signs of hematoma. Vital signs are stable, currently on room air with O2 sat at 96%. The patient is seen again today 08/06/2017 in follow-up on the selective care unit. He is awake and alert in no acute distress. He did undergo implantation of a dual-chamber pacemaker and is doing quite well. No other complaints. No shortness of breath, cough or congestion. Maintaining good O2 saturations in the 90s on room air. Probable discharge today. Objective - Vital Signs Vital signs: Vital Signs Temp 97.1 F L 08/06/17 11:00 Pulse 60 08/06/17 11:00 Resp 18 08/06/17 11:00 BP 119/73 08/06/17 11:00 Pulse Ox 97 08/06/17 11:00 Intake & Output 08/05/17 08/06/17 08/06/17 18:59 06:59 18:59 Intake Total 888 300 Output Total 175 300 Balance 713 -300 300 Weight 73.7 kg Intake: IV 350 Oral 538 300 Output: Urine 175 300 Other: Voiding Method Toilet Toilet Urinal Urinal # Voids 0 1 - Exam No acute distress, oriented 3. HEENT examination is grossly unremarkable. Mucous membranes are moist. No oral lesions. Neck supple. Full range of motion. No adenopathy thyromegaly or neck vein distention. Cardiovascular examination reveals regular rhythm rate. S1-S2 normal. No S3 or S4. No discernible murmur noted. Chest: Left upper chest incision is covered with a dressing, patient is status post dual-chamber permanent pacemaker implantation Lungs reveal clear breath sounds. Her sounds are equal bilaterally. No adventitious lung sounds including wheezes rhonchi or crackles. Abdomen soft bowel sounds are heard. No masses or tenderness. Extremities are intact. No cyanosis clubbing or edema. Skin is without rash or lesion. Neurologic examination is brief but nonfocal. - Labs CBC & Chem 7: 08/05/17 05:56 08/05/17 05:56 Assessment and Plan Assessment: Assessment: #1. Symptomatic bradycardia, complaints of lightheadedness dizziness, patient is status post dual-chamber permanent pacemaker implantation, postop day 0 #2. TIA, with symptoms of right arm tingling and facial numbness, currently resolved #3. Ischemic cardiomyopathy with ejection fraction of 30-35%. #4. Coronary artery disease, history of coronary artery bypass grafting, PCI and stenting #5. COPD, with no signs of current exacerbation #6. Hypertension #7. Osteoarthritis #8. Dementia #9. History of nicotine dependence, currently in remission Plan: The patient was seen and evaluated by Dr. Carr. He is quite stable from the pulmonary standpoint. He is cleared for discharge once cleared by cardiology. He'll follow-up in our office in 1-2 weeks' time. He is however encouraged to call sooner with any pulmonary complaints or other questions or concerns. I, the cosigning physician, performed a history & physical examination of the patient. Lungs sounds are clear. Maintaining good O2 saturations in the 90s on room air. I discussed the assessment and plan of care with my nurse practitioner, Domi Forbes. I attest to the above note as dictated by her. <Sher Carr - Last Filed: 08/06/17 18:11> Objective - Vital Signs Vital signs: Vital Signs Temp 97.1 F L 08/06/17 11:00 Pulse 60 08/06/17 11:00 Resp 18 08/06/17 11:00 BP 119/73 08/06/17 11:00 Pulse Ox 97 08/06/17 11:00 Intake & Output 08/05/17 08/06/17 08/06/17 18:59 06:59 18:59 Intake Total 888 300 Output Total 175 300 Balance 713 -300 300 Weight 73.7 kg Intake: IV 350 Oral 538 300 Output: Urine 175 300 Other: Voiding Method Toilet Toilet Urinal Urinal # Voids 0 1 - Labs CBC & Chem 7: 08/05/17 05:56 08/05/17 05:56 Assessment and Plan Assessment: Joint evaluation that was done along with the nurse practitioner. The patient had a dual-chamber permanent pacemaker implantation. Patient is postop day # day #1. No complications. Possible discharge home today.
--- NOTE | 2017-09-28 21:51 | DS ---
DISCHARGE SUMMARY ADMISSION DIAGNOSES: 1. Dizziness and generalized weakness with possible symptomatic bradycardia versus medication change. 2. Right arm tingling and facial numbness, rule out transient ischemic attack. 3. Ischemic cardiomyopathy, ejection fraction 30% to 35%. 4. Coronary artery disease with history of bypass grafting. 5. Chronic obstructive pulmonary disease, not in exacerbation. 6. Hypertension. 7. Hyperlipidemia. DISCHARGE DIAGNOSES: 1. Symptomatic tachy-james syndrome, status post dual-chamber permanent pacemaker insertion. 2. Ischemic cardiomyopathy, ejection fraction 30% to 35%. 3. Coronary artery disease. 4. Chronic obstructive pulmonary disease, not in exacerbation. 5. Hypertension. 6. Osteoarthritis. BRIEF HISTORY: This is a 77-year-old male patient, history of coronary artery disease, coronary artery bypass grafting, cardiomyopathy, COPD, and dementia, history of hypertension, hyperlipidemia, who presented to the ED with complaint of dizziness and weakness, not feeling well. The patient did not have any syncopal episode. Did complain of right arm tingling and numbness and also numbness on the right side of the face. EMS saw the patient without any noticeable neurological deficit. The patient was previously admitted to the hospital on 07/23/2017 with dizziness and chest pain at which time cardiac workup was negative. The patient was found to be bradycardic at which time Cardizem was discontinued and metoprolol was reduced and the patient was recommended follow up with the casing sewer. ASSESSMENT: 1. Coronary artery disease, status post coronary artery bypass grafting. 2. Severe cardiomyopathy, ejection fraction 35%. 3. COPD. 4. Hyperlipidemia. 5. Hypertension. 6. Osteoarthritis. 7. Dementia. MEDICATIONS ON ADMISSION: 1. Xanax 0.5 mg q.i.d. p.r.n. 2. Aricept 10 mg daily. 3. Effexor 37.5 mg b.i.d. 4. Requip 1 mg q.h.s. 5. Lipitor 80 mg q.h.s. 6. Restoril 30 mg p.o. q.h.s. 7. Aspirin 81 mg b.i.d. 8. Cozaar 12.5 mg daily. 9. Metoprolol 12.5 mg daily. 10.Omeprazole 40 mg a.c. breakfast. 11.Mobic 15 mg daily. ALLERGIES: The patient has no known drug allergies. BRIEF HOSPITAL COURSE: The patient was admitted to telemetry monitoring. Toprol and Aricept were held. The patient was given CVA workup with CT of the head and carotid Doppler, which was negative. Neurology and Cardiology was consulted. The patient was also given IV fluids for possible dehydration. The patient was monitored closely for any signs of CHF. While in the hospital, the patient did have episodes of symptomatic bradycardia. The patient was diagnosed with sick sinus syndrome. Metoprolol was put on hold. Neurology saw the patient and right arm tingling and numbness was possibly secondary to TIA. The rest of the neuro workup was unremarkable. The patient's symptoms resolved. The patient underwent pacemaker insertion. He did not have any further complications. Remains stable. He was then discharged in a stable condition with a plan to continue all current discharge medications and follow up with Cardiology as an outpatient. PHYSICAL EXAMINATION: At time of the discharge by vital signs: Temperature 98.6, pulse 76, respiration 18, blood pressure 121/76. HEENT: Atraumatic, normocephalic. Pupils equal and reactive to light. Extraocular movements intact. Buccal mucosa is fair. NECK: Supple. LUNGS: Clear to auscultate. No rales, rhonchi, or wheezes. HEART: Regular rate and rhythm without any murmurs or gallop rhythm. ABDOMEN: Soft, nontender, nondistended. Bowel sounds positive. EXTREMITIES: No edema, clubbing or cyanosis. NEUROLOGICAL EXAMINATION: No gross motor or sensory deficit. DISCHARGE MEDICATIONS: 1. Lipitor 80 mg q.h.s. 2. Plavix 75 mg daily. 3. Imdur 30 mg daily. 4. Lisinopril 5 mg daily. 5. Losartan 25 mg daily. 6. Toprol-XL 50 mg daily. 7. Aldactone 25 mg daily. 8. Xanax 0.5 mg q.i.d. p.r.n. 9. Aspirin 81 mg b.i.d. 10.Aricept 10 mg daily. 11.Mobic 15 mg daily. 12.Omeprazole 40 mg a.c. breakfast. 13.Restoril 30 mg q.h.s. 14.Effexor 37.5 mg b.i.d. 15.Requip 1 mg q.h.s. MMODL / IJN: [id number] /
== END 2017-08-06 15:57 | disposition home health service (06) | DRG 243 ==
LOC: EC 12:42 → 6SEL 14:50 → OBSVTOIN 08-03 14:44 → 6SEL 08-06 16:07
PROVIDERS: ADMIT Hospitalist; ATTEND Hospitalist
PROC: 02H63JZ Insertion of Pacemaker Lead into Right Atrium, Percutaneous Approach (ICD-10-PCS; 2017-08-05)
PROC: 02HK3JZ Insertion of Pacemaker Lead into Right Ventricle, Percutaneous Approach (ICD-10-PCS; 2017-08-05)
PROC: 0JH606Z Insertion of Pacemaker, Dual Chamber into Chest Subcutaneous Tissue and Fascia, Open Approach (ICD-10-PCS; principal; 2017-08-05 12:17)
DX: I49.5 Sick sinus syndrome (principal); I47.2 Ventricular tachycardia; G45.9 Transient cerebral ischemic attack, unspecified; I50.22 Chronic systolic (congestive) heart failure; I11.0 Hypertensive heart disease with heart failure; F03.90 Unspecified dementia, unspecified severity, without behavioral disturbance, psychotic disturbance, mood disturbance, and anxiety; E78.5 Hyperlipidemia, unspecified; F32.9 Major depressive disorder, single episode, unspecified; F41.9 Anxiety disorder, unspecified; G89.29 Other chronic pain; I25.10 Atherosclerotic heart disease of native coronary artery without angina pectoris; I25.2 Old myocardial infarction; I25.5 Ischemic cardiomyopathy; I44.0 Atrioventricular block, first degree; J44.9 Chronic obstructive pulmonary disease, unspecified; K21.9 Gastro-esophageal reflux disease without esophagitis; M15.9 Polyosteoarthritis, unspecified; M54.9 Dorsalgia, unspecified; R73.9 Hyperglycemia, unspecified; K57.90 Diverticulosis of intestine, part unspecified, without perforation or abscess without bleeding; R07.89 Other chest pain; Z66 Do not resuscitate; Z79.1 Long term (current) use of non-steroidal anti-inflammatories (NSAID); Z79.82 Long term (current) use of aspirin; Z79.899 Other long term (current) drug therapy; Z95.1 Presence of aortocoronary bypass graft; Z85.46 Personal history of malignant neoplasm of prostate; Z95.5 Presence of coronary angioplasty implant and graft; Z87.891 Personal history of nicotine dependence; Z82.49 Family history of ischemic heart disease and other diseases of the circulatory system
CPT/HCPCS: 33208; 36415; 70450; 71046; 80048; 80053; 80061; 81003; 82550; 82553; 83090; 83605; 83735; 84100; 84443; 84484; 85025; 85610; 85730; 87086; 93005; 93880; 94760; 95819; 96360; 96361; 99285

== ENCOUNTER 2017-12-18 10:47 | Emergency (ER) | payer MEDICARE ==
[2017-12-18 11:07] VITALS: RESP 16
--- NOTE | 2017-12-18 12:02 | CT ---
EXAMINATION TYPE: CT brain wo con DATE OF EXAM: 12/18/2017 COMPARISON: 07/31/2017 HISTORY: Fall yesterday, facial injury CT DLP: [address] of the brain was performed. The ventricles, basal cisterns and sulci overlying the cerebral convexities demonstrate mild to moder ate enlargement. There is no evidence for intracranial hemorrhage or sulcal effacement. There is decreased attenuation about the periventricular white matter and deep white matter of both c erebral hemispheres, compatible with chronic small vessel ischemia. Differential diagnosis does inclu de demyelination. No mass effects are seen.No midline shift. Osseous calvarium is intact. If symptoms persist consider MRI. IMPRESSION: 1. Age related atrophic and chronic small vessel ischemic change without acute intracranial process s een at this time.
--- NOTE | 2017-12-18 12:06 | ED ---
Fall HPI - General Chief Complaint: Fall Stated Complaint: Fall yesterday, facial injury Time Seen by Provider: 12/18/17 11:12 Source: patient Mode of arrival: ambulatory - History of Present Illness Initial Comments: This is a 77-year-old male who presents emergency department for a fall that occurred yesterday. The patient does take a baby aspirin daily however states he has not been taking it recently. He states that yesterday he was walking down a hill when he suddenly tripped and then face planted into the ground. He states that there is no loss of consciousness. He was able to get up and walk afterwards. A little bit of a headache so he presented to an urgent care the did an x-ray of his facial bones that was unremarkable. He woke up this morning was complaining of some thoracic back pain, neck pain, headache, and a little bit of nausea. He states that he generally just does not feel well. He called his primary doctor who directed to the emergency department for evaluation. Patient otherwise denies any other injuries. Denies any lower ch [place] pain or difficult with ambulation. No other acute complaints. - Related Data Home Medications Medication Instructions Recorded Confirmed ALPRAZolam [Xanax] 0.5 mg PO QID PRN 06/28/15 12/18/17 Acetaminophen Tab [Tylenol] 1,000 mg PO TID PRN 06/28/15 12/18/17 Donepezil [Aricept] 10 mg PO DAILY 06/28/15 12/18/17 Venlafaxine HCl [Effexor] 37.5 mg PO BID 06/28/15 12/18/17 Atorvastatin Calcium [Lipitor] 80 mg PO HS 10/26/16 12/18/17 Temazepam [Restoril] 30 mg PO HS 07/22/17 12/18/17 Meloxicam [Mobic] 15 mg PO DAILY 07/31/17 12/18/17 Previous Rx's Medication Instructions Recorded Aspirin 81 mg PO BID chew 07/23/17 Nitroglycerin Sl Tabs [Nitrostat] 0.4 mg SUBLINGUAL Q5M PRN tab 07/23/17 Omeprazole [PriLOSEC] 40 mg PO KEELY #14 capsule. 07/23/17 Atorvastatin [Lipitor] 80 mg PO HS tab 08/06/17 Clopidogrel [Plavix] 75 mg PO DAILY #30 tab 08/06/17 Isosorbide Mononitrate ER [Imdur] 30 mg PO DAILY #30 tab.er.24h 08/06/17 Losartan [Cozaar] 25 mg PO DAILY tab 08/06/17 Metoprolol Succinate (ER) [Toprol 50 mg PO DAILY #30 tab.er.24h 08/06/17 XL] Spironolactone [Aldactone] 25 mg PO DAILY #30 tab 08/06/17 Allergies Allergy/AdvReac Type Severity Reaction Status Date / Time No Known Allergies Allergy Verified 12/18/17 12:14 Review of Systems ROS Statement: Those systems with pertinent positive or pertinent negative responses have been documented in the HPI. ROS Other: All systems not noted in ROS Statement are negative. Past Medical History Past Medical History: Coronary Artery Disease (CAD), Cancer, Chest Pain / Angina , COPD, Dementia, GERD/Reflux, Hyperlipidemia, Hypertension, Memory Impairment, Myocardial Infarction (RI), Osteoarthritis (OA), Pneumonia Additional Past Medical History / Comment(s): PER PAST MEDICAL(2011) RECORD PT STATED" 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 SEVERAL RI'S, BRONCHITIS, DIVERTICULAR DISEASE,CHRONIC BACK PAIN , PROSTATE CA(HAD SX), CONSTIPATION, PALPITATIONS Last Myocardial Infarction Date:: UNK History of Any Multi-Drug Resistant Organisms: None Reported Past Surgical History: Coronary Bypass/CABG, Heart Catheterization With Stent, Prostate Surgery, Tonsillectomy Additional Past Surgical History / Comment(s): CABG TRIOLE VESSEL IN 1988 CABG [id number] IN 1999, THUMB CUT OFF HAD SX TO REATTATCH, COLONOSCOPY, PROSTATECTOMY , RUPTURED ACHILLIES TENDON REPAIR. 5 stents, LEIF CATARACATS Past Anesthesia/Blood Transfusion Reactions: No Reported Reaction Date of Last Stent Placement:: UNK Past Psychological History: Anxiety, Depression Smoking Status: Former smoker Past Alcohol Use History: None Reported Past Drug Use History: None Reported - Past Family History Father Family Medical History: Coronary Artery Disease (CAD), CVA/TIA Additional Family Medical History / Comment(s): CABG AND VALVE SX Mother Family Medical History: Dementia, Hypertension Additional Family Medical History / Comment(s): MOM IS ALIVE AT 97 YEARS OLD, LIVING IN [facility] General Exam - General Exam Comments Initial Comments: Constitutional: Awake alert Appears comfortable Head: Cephalic, there is an abrasion to his forehead and also to his nasal bridge with ecchymosis, there is some bruising to the mucosal aspect of the upper and lower lip without laceration Eyes: no conjunctival injection No scleral icterus EOMI, pupils are 4 mm and reactive bilaterally Neck: No JVD Supple, mild tenderness around the C5-C6 region Heart: Regular rate rhythm normal S1-S2 no murmurs Lungs: Clear to auscultation bilaterally No wheezing No rales Abdomen: Soft nondistended nontender Back: Patient does have some tenderness between the shoulder blades along the thoracic spine Extremities: Non edematous DP pulses intact Radial pulses intact Neuro: A&Ox3 No focal neurologic deficits, 5 out of 5 strength in upper and lower extremities bilaterally, no paresthesias, sensation intact to light touch in bilateral upper and lower extremities Psych: Appropriate mood and affect Limitations: no limitations Course Vital Signs 12/18/17 11:03 Temperature 98.1 F Pulse Rate 60 Respiratory 16 Rate Blood Pressure 123/79 O2 Sat by Pulse 98 Oximetry Medical Decision Making - Medical Decision Making This is a 77-year-old male who presents emergency department after a fall yesterday. CT of the head was unremarkable. CT face that show a nasal bone fracture however no significant displacement. The rest of his x-rays were unremarkable. The patient is showing signs of concussion. This was discussed with him at length. He was instructed on progressive return to activities and close follow up with his primary doctor. Can take Motrin Tylenol as needed for pain. Anything seems to acutely worsens to return the emergency Department for reevaluation. All questions answered. Disposition Clinical Impression: Mild TBI, Nasal bone fracture Disposition: HOME SELF-CARE Condition: Stable Instructions: Nasal Fracture (ED), Concussion (ED) Is patient prescribed a controlled substance at d/c from ED?: No Referrals: Alexandrea Gamino MD [Primary Care Provider] - 1-2 days
--- NOTE | 2017-12-18 12:13 | XR ---
EXAMINATION TYPE: XR chest 2V DATE OF EXAM: 12/18/2017 COMPARISON: 08/06/2017 HISTORY: Shortness of breath TECHNIQUE: Frontal and lateral views of the chest are obtained. FINDINGS: Scattered senescent parenchymal changes noted. Hyperinflation compatible with COPD. No evidence for infiltrate. No evidence for atelectasis. Heart size is stable. Mediastinal structures are stable and grossly unremarkable. No evidence for hilar prominence. Degenerative changes dorsal spine. IMPRESSION: 1. No evidence for acute pulmonary disease.
--- NOTE | 2017-12-18 12:14 | XR ---
EXAMINATION TYPE: XR thoracic spine 2V DATE OF EXAM: 12/18/2017 CLINICAL HISTORY: pain TECHNIQUE: Frontal, lateral, and swimmer's view of thoracic spine are obtained. COMPARISON: None. FINDINGS: Thoracic spine show satisfactory alignment without evidence of acute fracture or dislocatio n. Vertebral body heights are preserved. Moderate degenerative disc space narrowing and spondylosis. Visualized ribs are unremarkable. IMPRESSION: No acute fracture or dislocation is seen in the thoracic spine. ICD 10 NO FRACTURE, INIT IAL EVALUATION
--- NOTE | 2017-12-18 12:17 | CT ---
EXAMINATION TYPE: CT facial bones wo con DATE OF EXAM: 12/18/2017 COMPARISON: NONE HISTORY: Fall yesterday, facial injury CT DLP: [address] of the facial bones was performed in the axial and coronal planes. Bone and soft tissu e window settings are submitted. Left frontal soft tissue swelling noted. Minimally displaced and mildly comminuted nasal bone fracture. No evidence for fracture depression. M ild soft tissue swelling seen. No additional displaced or depressed facial bone fracture seen at this time. The globes are intact. Paranasal sinuses are well-aerated. IMPRESSION: 1. Nasal bone fracture as noted.
--- NOTE | 2017-12-18 12:17 | XR ---
EXAMINATION TYPE: XR cervical spine limited DATE OF EXAM: 12/18/2017 CLINICAL HISTORY: pain TECHNIQUE: 3 views of the cervical spine are submitted. COMPARISON: None. FINDINGS: There is satisfactory in alignment without evidence of acute fracture or dislocation. The pre-vertebral soft tissue appears within normal limits. Moderate to severe degenerative disc space n arrowing extending from C3-4 through C6-7. The C1-C2 articulation is unremarkable on the open mouth v iew. IMPRESSION: No acute fracture or dislocation is seen in the cervical spine.
[2017-12-18 12:55] VITALS: BP 123/89; PULSE 79; TEMP 97
== END 2017-12-18 12:54 | disposition home or self-care (01) ==
LOC: EC 10:47
DX: S06.0X0A Concussion without loss of consciousness, initial encounter (principal); S02.2XXA Fracture of nasal bones, initial encounter for closed fracture; F03.90 Unspecified dementia, unspecified severity, without behavioral disturbance, psychotic disturbance, mood disturbance, and anxiety; M19.90 Unspecified osteoarthritis, unspecified site; E78.5 Hyperlipidemia, unspecified; F41.9 Anxiety disorder, unspecified; M54.2 Cervicalgia; M54.6 Pain in thoracic spine; F32.9 Major depressive disorder, single episode, unspecified; Z87.891 Personal history of nicotine dependence; Z95.1 Presence of aortocoronary bypass graft; Z85.46 Personal history of malignant neoplasm of prostate; Z98.890 Other specified postprocedural states; Z95.5 Presence of coronary angioplasty implant and graft; Z90.79 Acquired absence of other genital organ(s); Z79.1 Long term (current) use of non-steroidal anti-inflammatories (NSAID); Z79.899 Other long term (current) drug therapy; W01.198A Fall on same level from slipping, tripping and stumbling with subsequent striking against other object, initial encounter; Y92.89 Other specified places as the place of occurrence of the external cause; Y93.01 Activity, walking, marching and hiking
CPT/HCPCS: 70450; 70486; 71046; 72040; 72070; 99284

== ENCOUNTER 2018-08-30 12:27 | Inpatient (IN) | payer MEDICARE ==
[2018-08-30] MEDS ORDERED: ALPRAZolam 0.5 MG TAB PO STA (13:39)
--- NOTE | 2018-08-30 13:42 | ED ---
General Adult HPI - General Chief complaint: Weakness Stated complaint: weakness/nausea Time Seen by Provider: 08/30/18 13:13 Source: patient, EMS, RN notes reviewed Mode of arrival: EMS Limitations: no limitations - History of Present Illness Initial comments: Patient is a pleasant 78-year-old male presenting to the emergency department for not feeling well. Patient has a difficult time extending his symptoms. Patient does admit to being off his alprazolam almost 2 weeks ago. Patient states he did have difficulty sleeping for several nights following this. Patient does feel lightheaded. Patient feels somewhat fatigued and weak all over, no isolated area of weakness. Patient has had some discomfort in his chest, none at this time. Patient has had some tingling diffusely. - Related Data Home Medications Medication Instructions Recorded Confirmed Acetaminophen Tab [Tylenol] 1,000 mg PO DAILY PRN 06/28/15 08/30/18 Donepezil [Aricept] 10 mg PO DAILY 06/28/15 08/30/18 Venlafaxine HCl [Effexor] 37.5 mg PO BID 06/28/15 08/30/18 Meloxicam [Mobic] 15 mg PO DAILY 07/31/17 08/30/18 Previous Rx's Medication Instructions Recorded Aspirin 81 mg PO BID chew 07/23/17 Nitroglycerin Sl Tabs [Nitrostat] 0.4 mg SUBLINGUAL Q5M PRN tab 07/23/17 Omeprazole [PriLOSEC] 40 mg PO AC-BRKFST #14 capsule.dr 07/23/17 Atorvastatin [Lipitor] 80 mg PO HS tab 08/06/17 Clopidogrel [Plavix] 75 mg PO DAILY #30 tab 08/06/17 Isosorbide Mononitrate ER [Imdur] 30 mg PO DAILY #30 tab.er.24h 08/06/17 Losartan [Cozaar] 25 mg PO DAILY tab 08/06/17 Metoprolol Succinate (ER) [Toprol 50 mg PO DAILY #30 tab.er.24h 08/06/17 XL] Spironolactone [Aldactone] 25 mg PO DAILY #30 tab 08/06/17 Allergies Allergy/AdvReac Type Severity Reaction Status Date / Time No Known Allergies Allergy Verified 08/30/18 13:53 Review of Systems ROS Statement: Those systems with pertinent positive or pertinent negative responses have been documented in the HPI. ROS Other: All systems not noted in ROS Statement are negative. Constitutional: Denies: fever Eyes: Denies: vision change ENT: Denies: epistaxis Respiratory: Reports: dyspnea Cardiovascular: Reports: chest pain Endocrine: Reports: fatigue Gastrointestinal: Reports: nausea Genitourinary: Denies: hematuria Musculoskeletal: Denies: arthralgia Skin: Denies: rash Neurological: Reports: headache, weakness. 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 SEVERAL KS'S, BRONCHITIS, DIVERTICULAR DISEASE,CHRONIC BACK PAIN , PROSTATE CA(HAD SX), CONSTIPATION, PALPITATIONS Last Myocardial Infarction Date:: UNK History of Any Multi-Drug Resistant Organisms: None Reported Past Surgical History: Coronary Bypass/CABG, Heart Catheterization With Stent, Prostate Surgery, Tonsillectomy Additional Past Surgical History / Comment(s): CABG TRIOLE VESSEL IN 1988 CABG [id number] IN 1999, THUMB CUT OFF HAD SX TO REATTATCH, COLONOSCOPY, PROSTATECTOMY , RUPTURED ACHILLIES TENDON REPAIR. 5 stents, LEIF CATARACATS Past Anesthesia/Blood Transfusion Reactions: No Reported Reaction Date of Last Stent Placement:: UNK Past Psychological History: Anxiety, Depression Smoking Status: Former smoker Past Alcohol Use History: None Reported Past Drug Use History: None Reported - Past Family History Father Family Medical History: Coronary Artery Disease (CAD), CVA/TIA Additional Family Medical History / Comment(s): CABG AND VALVE SX Mother Family Medical History: Dementia, Hypertension Additional Family Medical History / Comment(s): MOM IS ALIVE AT 97 YEARS OLD, L[facility]ING IN [facility] General Exam Limitations: no limitations General appearance: alert, in no apparent distress Head exam: Present: atraumatic Eye exam: Present: normal appearance, PERRL, EOMI. Absent: nystagmus ENT exam: Present: normal oropharynx Neck exam: Present: normal inspection Respiratory exam: Present: normal lung sounds bilaterally Cardiovascular Exam: Present: regular rate, normal rhythm Expanded Peripheral pulses: 2+: Radial (R), Radial (L), Posterior Tibialis (R), Posterior Tibialis (L) GI/Abdominal exam: Present: soft. Absent: tenderness Extremities exam: Present: normal inspection. Absent: pedal edema, calf tenderness Neurological exam: Present: alert, oriented X3, CN II-XII intact. Absent: motor sensory deficit Psychiatric exam: Present: normal affect, normal mood Skin exam: Present: normal color Course Vital Signs 08/30/18 08/30/18 12:33 14:30 Temperature 97.0 F L Pulse Rate 60 60 Respiratory 18 18 Rate Blood Pressure 148/93 118/68 O2 Sat by Pulse 97 97 Oximetry EKG Findings - EKG Comments: EKG Findings:: Paced rhythm at 64. QRS 102. QT 438. QTC 451. Left axis. Normal QRS. Nonspecific T waves. Medical Decision Making - Medical Decision Making Patient reevaluated and resting comfortably in bed. Patient only has slight discomfort in his chest otherwise is symptom-free. Patient is updated on results and plan. Case was crusted detail with Dr. barnes, covering for Dr. Durant who has previously admitted this patient of Dr. Gamino's. - Lab Data Result diagrams: 08/30/18 12:46 08/30/18 12:46 Lab Results 08/30/18 08/30/18 08/30/18 Range/Units 12:46 12:46 12:46 WBC 6.3 (3.8-10.6) k/uL RBC 4.84 (4.30-5.90) m/uL Hgb 15.3 (13.0-17.5) gm/dL Hct 44.9 (39.0-53.0) % MCV 92.6 (80.0-100.0) fL MCH 31.5 (25.0-35.0) pg MCHC 34.1 (31.0-37.0) g/dL RDW 12.1 (11.5-15.5) % Plt Count 175 (150-450) k/uL Neutrophils % 67 % Lymphocytes % 22 % Monocytes % 7 % Eosinophils % 3 % Basophils % 1 % Neutrophils # 4.2 (1.3-7.7) k/uL Lymphocytes # 1.4 (1.0-4.8) k/uL Monocytes # 0.5 (0-1.0) k/uL Eosinophils # 0.2 (0-0.7) k/uL Basophils # 0.0 (0-0.2) k/uL PT (9.0-12.0) sec INR (<1.2) APTT (22.0-30.0) sec Sodium 139 (137-145) mmol/L Potassium 4.7 (3.5-5.1) mmol/L Chloride 103 (98-107) mmol/L Carbon Dioxide 29 (22-30) mmol/L Anion Gap 7 mmol/L BUN 26 H (9-20) mg/dL Creatinine 0.79 (0.66-1.25) mg/dL Est GFR (CKD-EPI)AfAm >90 (>60 ml/min/1.73 sqM) Est GFR (CKD-EPI)NonAf 86 (>60 ml/min/1.73 sqM) Glucose 95 (74-99) mg/dL Plasma Lactic Acid Jose (0.7-2.0) mmol/L Calcium 9.7 (8.4-10.2) mg/dL Phosphorus 3.0 (2.5-4.5) mg/dL Magnesium 2.1 (1.6-2.3) mg/dL Total Bilirubin 0.7 (0.2-1.3) mg/dL AST 28 (17-59) U/L ALT 39 (21-72) U/L Alkaline Phosphatase 82 (38-126) U/L Total Creatine Kinase 51 L (55-170) U/L CK-MB (CK-2) 1.4 (0.0-2.4) ng/mL CK-MB (CK-2) Rel Index 2.7 Troponin I <0.012 (0.000-0.034) ng/mL NT-Pro-B Natriuret Pep pg/mL Total Protein 6.8 (6.3-8.2) g/dL Albumin 4.3 (3.5-5.0) g/dL Urine Color Urine Appearance (Clear) Urine pH (5.0-8.0) Ur Specific [place] (1.001-1.035) Urine Protein (Negative) Urine Glucose (UA) (Negative) Urine Ketones (Negative) Urine Blood (Negative) Urine Nitrite (Negative) Urine Bilirubin (Negative) Urine Urobilinogen (<2.0) mg/dL Ur Leukocyte Esterase (Negative) 08/30/18 08/30/18 08/30/18 Range/Units 12:46 12:46 12:46 WBC (3.8-10.6) k/uL RBC (4.30-5.90) m/uL Hgb (13.0-17.5) gm/dL Hct (39.0-53.0) % MCV (80.0-100.0) fL MCH (25.0-35.0) pg MCHC (31.0-37.0) g/dL RDW (11.5-15.5) % Plt Count (150-450) k/uL Neutrophils % % Lymphocytes % % Monocytes % % Eosinophils % % Basophils % % Neutrophils # (1.3-7.7) k/uL Lymphocytes # (1.0-4.8) k/uL Monocytes # (0-1.0) k/uL Eosinophils # (0-0.7) k/uL Basophils # (0-0.2) k/uL PT 10.1 (9.0-12.0) sec INR 0.9 (<1.2) APTT 23.6 (22.0-30.0) sec Sodium (137-145) mmol/L Potassium (3.5-5.1) mmol/L Chloride (98-107) mmol/L Carbon Dioxide (22-30) mmol/L Anion Gap mmol/L BUN (9-20) mg/dL Creatinine (0.66-1.25) mg/dL Est GFR (CKD-EPI)AfAm (>60 ml/min/1.73 sqM) Est GFR (CKD-EPI)NonAf (>60 ml/min/1.73 sqM) Glucose (74-99) mg/dL Plasma Lactic Acid Jose 1.4 (0.7-2.0) mmol/L Calcium (8.4-10.2) mg/dL Phosphorus (2.5-4.5) mg/dL Magnesium (1.6-2.3) mg/dL Total Bilirubin (0.2-1.3) mg/dL AST (17-59) U/L ALT (21-72) U/L Alkaline Phosphatase (38-126) U/L Total Creatine Kinase (55-170) U/L CK-MB (CK-2) (0.0-2.4) ng/mL CK-MB (CK-2) Rel Index Troponin I (0.000-0.034) ng/mL NT-Pro-B Natriuret Pep 264 pg/mL Total Protein (6.3-8.2) g/dL Albumin (3.5-5.0) g/dL Urine Color Urine Appearance (Clear) Urine pH (5.0-8.0) Ur Specific [place] (1.001-1.035) Urine Protein (Negative) Urine Glucose (UA) (Negative) Urine Ketones (Negative) Urine Blood (Negative) Urine Nitrite (Negative) Urine Bilirubin (Negative) Urine Urobilinogen (<2.0) mg/dL Ur Leukocyte Esterase (Negative) 08/30/18 Range/Units 13:50 WBC (3.8-10.6) k/uL RBC (4.30-5.90) m/uL Hgb (13.0-17.5) gm/dL Hct (39.0-53.0) % MCV (80.0-100.0) fL MCH (25.0-35.0) pg MCHC (31.0-37.0) g/dL RDW (11.5-15.5) % Plt Count (150-450) k/uL Neutrophils % % Lymphocytes % % Monocytes % % Eosinophils % % Basophils % % Neutrophils # (1.3-7.7) k/uL Lymphocytes # (1.0-4.8) k/uL Monocytes # (0-1.0) k/uL Eosinophils # (0-0.7) k/uL Basophils # (0-0.2) k/uL PT (9.0-12.0) sec INR (<1.2) APTT (22.0-30.0) sec Sodium (137-145) mmol/L Potassium (3.5-5.1) mmol/L Chloride (98-107) mmol/L Carbon Dioxide (22-30) mmol/L Anion Gap mmol/L BUN (9-20) mg/dL Creatinine (0.66-1.25) mg/dL Est GFR (CKD-EPI)AfAm (>60 ml/min/1.73 sqM) Est GFR (CKD-EPI)NonAf (>60 ml/min/1.73 sqM) Glucose (74-99) mg/dL Plasma Lactic Acid Jose (0.7-2.0) mmol/L Calcium (8.4-10.2) mg/dL Phosphorus (2.5-4.5) mg/dL Magnesium (1.6-2.3) mg/dL Total Bilirubin (0.2-1.3) mg/dL AST (17-59) U/L ALT (21-72) U/L Alkaline Phosphatase (38-126) U/L Total Creatine Kinase (55-170) U/L CK-MB (CK-2) (0.0-2.4) ng/mL CK-MB (CK-2) Rel Index Troponin I (0.000-0.034) ng/mL NT-Pro-B Natriuret Pep pg/mL Total Protein (6.3-8.2) g/dL Albumin (3.5-5.0) g/dL Urine Color Colorless Urine Appearance Clear (Clear) Urine pH 7.0 (5.0-8.0) Ur Specific [place] 1.003 (1.001-1.035) Urine Protein Negative (Negative) Urine Glucose (UA) Negative (Negative) Urine Ketones Negative (Negative) Urine Blood Negative (Negative) Urine Nitrite Negative (Negative) Urine Bilirubin Negative (Negative) Urine Urobilinogen <2.0 (<2.0) mg/dL Ur Leukocyte Esterase Negative (Negative) - Radiology Data Radiology results: report reviewed (Computed tomography scan of brain shows extensive chronic white matter disease. No acute intercranial abnormality.), image reviewed (Chest x-ray shows mild pleural reaction left base. Mild fibrosis) Disposition Clinical Impression: Chest pain Disposition: ADMITTED IP TO THIS HOSP Is patient prescribed a controlled substance at d/c from ED?: No Referrals: Alexandrea Gamino MD [Primary Care Provider] - 1-2 days Decision Time: 15:44
[2018-08-30 13:57] LABS: Basophils % (A) 1 %; Eosinophils # (A) 0.2 k/uL (0-0.7); Eosinophils % (A) 3 %; HCT 44.9 % (39.0-53.0); HGB 15.3 gm/dL (13.0-17.5); Lymphocytes # (A) 1.4 k/uL (1.0-4.8); Lymphocytes % (A) 22 %; MCH 31.5 pg (25.0-35.0); MCHC 34.1 g/dL (31.0-37.0); MCV 92.6 fL (80.0-100.0); Mean Platelet Volume 7.5; Monocytes # (A) 0.5 k/uL (0-1.0); Monocytes % (A) 7 %; Neutrophils # (A) 4.2 k/uL (1.3-7.7); Neutrophils % (A) 67 %; Platelet Count 175 k/uL (150-450); RBC 4.84 m/uL (4.30-5.90); RDW 12.1 % (11.5-15.5); WBC 6.3 k/uL (3.8-10.6)
[2018-08-30 14:02] LABS: ALT 39 U/L (21-72); AST 28 U/L (17-59); Albumin 4.3 g/dL (3.5-5.0); Alkaline Phosphatase 82 U/L (38-126); Anion Gap 7 mmol/L; Blood Urea Nitrogen 26 mg/dL (9-20); Calcium 9.7 mg/dL (8.4-10.2); Carbon Dioxide 29 mmol/L (22-30); Chloride 103 mmol/L (98-107); Glucose 95 mg/dL (74-99); Magnesium 2.1 mg/dL (1.6-2.3); Potassium 4.7 mmol/L (3.5-5.1); Sodium 139 mmol/L (137-145); Total Bilirubin 0.7 mg/dL (0.2-1.3); Total Protein 6.8 g/dL (6.3-8.2)
[2018-08-30 14:04] LABS: Appearance,Urine Clear (Clear); Bilirubin,Urine Negative (Negative); Blood,Urine Negative (Negative); Color,Urine Colorless; Glucose,Urine (UA) Negative (Negative); Ketones,Urine Negative (Negative); Leukocyte Esterase,Urine Negative (Negative); Nitrite,Urine Negative (Negative); Protein,Urine Negative (Negative); Specific Gravity,Urine 1.003 (1.001-1.035); Urobilinogen,Urine <2.0 mg/dL (<2.0)
[2018-08-30 14:11] LABS: INR 0.9 (<1.2); Partial Thromboplastin Time 23.6 sec (22.0-30.0); Prothrombin Time 10.1 sec (9.0-12.0)
--- NOTE | 2018-08-30 14:11 | CT ---
EXAMINATION TYPE: CT brain wo con DATE OF EXAM: 08/30/2018 COMPARISON: 12/18/2017 HISTORY: Weakness and nausea CT DLP: 1142.4 mGycm Automated exposure control for dose reduction was used. FINDINGS: There is some moderate patchy hypodensity in the periventricular white matter. This is more in the pa rietal and frontal lobes. There is no midline shift. There is no mass effect. There is no sign of int racranial hemorrhage. The calvarium is intact. There is mild cerebral cortical atrophy. IMPRESSION: EXTENSIVE CHRONIC WHITE MATTER DISEASE CONSISTENT WITH CHRONIC SMALL VESSEL ISCHEMIA. NO ACUTE INTRAC RANIAL ABNORMALITY. NO CHANGE COMPARED TO OLD EXAM.
--- NOTE | 2018-08-30 14:13 | XR ---
EXAMINATION TYPE: XR chest 2V DATE OF EXAM: 08/30/2018 COMPARISON: 12/18/2017 HISTORY: Weakness TECHNIQUE: Frontal and lateral views of the chest are obtained. FINDINGS: There is no heart failure nor confluent pneumonic infiltrate. There are sternal wires. Hea rt size is normal. There is left axillary pacemaker with the lead tips in the right ventricle. Thorac ic aorta is atheromatous. There is slight blunting of left lateral costophrenic angle. IMPRESSION: Minimal pleural reaction at the lateral left lung base. Mild fibrosis. No heart failure. Inspiration decreased compared to old exam.
[2018-08-30 14:18] LABS: Creatine Kinase 51 U/L (55-170)
[2018-08-30 14:31] LABS: Creatine Kinase MB 1.4 ng/mL (0.0-2.4); Troponin I <0.012 ng/mL (0.000-0.034)
[2018-08-30] MEDS ORDERED: NITROGLYCERIN SL TABS 0.4 MG TAB SUBLINGUAL PRN (15:44)
[2018-08-30] MEDS ORDERED: ASPIRIN 81 MG PO STA (15:44)
[2018-08-30] MEDS ORDERED: ACETAMINOPHEN TAB 500 MG TAB PO PRN (17:42)
--- NOTE | 2018-08-30 18:26 | HP ---
HISTORY AND PHYSICAL CHIEF COMPLAINTS: Weakness and as well as not feeling well. HISTORY OF PRESENT ILLNESS: This 78-year-old gentleman with a past history of multiple medical problems including CAD, history of COPD, dementia, GERD, hypertension, hyperlipidemia, history of myocardial infarction, cardiomyopathy being followed by Dr. Gamino in the outpatient setting, was complaining of generalized weakness and tiredness. The patient was apparently off Xanax for the last 2 weeks. The patient complained of generalized fatigue. Patient also had diffuse aches and pains including some vague chest pains in the left lower part of the chest. Otherwise there is no history of fever, rigors. No headache, loss of consciousness, seizures. PAST MEDICAL HISTORY: History of CAD, COPD, dementia, GERD, hypertension, hyperlipidemia, cardiomyopathy, ejection fraction 35%, anxiety, depression. MEDICATIONS: Home medications are: 1. Effexor 37.5 mg p.o. b.i.d. 2. Aldactone 25 mg daily. 3. Prilosec 40 mg daily. 4. Nitrostat 0.4 sublingual p.r.n. 5. Toprol-XL 50 mg p.o. daily. 6. Mobic 15 mg p.o. daily. 7. Cozaar 25 mg p.o. daily. 8. Imdur 30 mg p.o. daily. 9. Aricept 10 mg p.o. daily. 10.Plavix 75 mg p.o. daily. 11.Lipitor 80 mg q.h.s. 12.Aspirin 81 mg p.o. daily. 13.Tylenol 1000 mg daily p.r.n. ALLERGIES: None. FAMILY HISTORY: History of coronary artery disease, CVA, TIA, CABG. SOCIAL HISTORY: Remote history of smoking. REVIEW OF SYSTEMS: ENT: Diminished hearing or vision. CARDIOVASCULAR: As mentioned. RESPIRATORY: As mentioned. GI: No nausea. : No dysuria. NERVOUS SYSTEM: As mentioned. ALLERGY/IMMUNOLOGY: No asthma. MUSCULOSKELETAL: As mentioned. HEMATOLOGY: No history of anemia. ENDOCRINE: No history of diabetes or hypothyroidism. CONSTITUTIONAL: As mentioned earlier. DERMATOLOGY: Negative. RHEUMATOLOGY: Negative. PSYCHIATRY: As mentioned earlier. PHYSICAL EXAMINATION: Alert and oriented x3. Pulse is 60, blood pressure 110/77, respiration 18, temperature 98 degrees, pulse ox 96% on room air. HEENT: Conjunctivae normal. Oral mucosa moist. Neck is no jugular venous distention. No carotid bruit. No lymph node enlargement. CARDIOVASCULAR: S1, S2. No S3, no S4. RESPIRATORY: Breath sounds diminished in the bases. No rhonchi. No crackles. ABDOMEN: Soft, nontender. No mass palpable. LEGS: No edema. No swelling. NERVOUS SYSTEM: Higher functions as mentioned earlier. Moves all four limbs. No focal deficits. LYMPHATICS: No lymphadenopathy in the neck, axillae, groin. SKIN: No ulcer, rash, bleeding. JOINTS: No active deforming arthropathy. LABS: CBC within normal. CMP noted. ASSESSMENT: 1. Chest pain, possible unstable angina. 2. Generalized weakness, plans for evaluation, rule out orthostatic hypotension. 3. History of coronary artery disease, CABG. 4. History of ischemic cardiomyopathy. 5. Chronic congestive heart failure with ejection fraction 35% with chronic systolic dysfunction. 6. History of chronic obstructive pulmonary disease. 7. History of dementia. 8. History of gastroesophageal reflux disease. 9. Hypertension. 10.Hyperlipidemia. 11.History of myocardial infarction. 12.History of pneumonia. 13.History of coronary artery disease, CABG, stent. 14.History of anxiety and depression. 15.Remote history of nicotine dependence. RECOMMENDATIONS AND DISCUSSION: This 78-year-old gentleman who presented with multiple complex medical issues. Will monitor the patient closely. Continue the current management and symptomatic treatment. We will resume the home medication. Orthostatic vitals. Rule out myocardial infarction. Otherwise, symptomatic treatment will be provided and I would also recommend Cardiology consultation and Pulmonary consultation, Dr. Gamino. Guarded prognosis because of multiple complex medical issues. Further recommendations to follow. Copy of dictation being forwarded to Dr. Gamino who is the primary physician. MMODL / IJN: [id number] /
[2018-08-30 19:20] LABS: Creatine Kinase 41 U/L (55-170)
[2018-08-30 19:31] LABS: Creatine Kinase MB 0.9 ng/mL (0.0-2.4); Troponin I <0.012 ng/mL (0.000-0.034)
[2018-08-30] MEDS: ATORVASTATIN 80 MG TAB PO SCH (23:18)
[2018-08-30] MEDS: NITROGLYCERIN OINT 1 INCH/GM PACKET TOPICAL SCH (23:18)
[2018-08-30] MEDS: VENLAFAXINE HCL 37.5 MG TAB PO SCH (23:18)
[2018-08-30] MEDS: HEPARIN SODIUM,PORCINE 5,000 UNIT/ML 1 ML VIAL SQ SCH (23:18)
[2018-08-31 01:51] LABS: Creatine Kinase 44 U/L (55-170)
[2018-08-31 02:04] LABS: Troponin I <0.012 ng/mL (0.000-0.034)
[2018-08-31 06:04] LABS: Basophils % (A) 1 %; Eosinophils # (A) 0.3 k/uL (0-0.7); Eosinophils % (A) 4 %; HCT 44.9 % (39.0-53.0); HGB 14.7 gm/dL (13.0-17.5); Lymphocytes # (A) 1.8 k/uL (1.0-4.8); Lymphocytes % (A) 28 %; MCH 30.7 pg (25.0-35.0); MCHC 32.8 g/dL (31.0-37.0); MCV 93.5 fL (80.0-100.0); Mean Platelet Volume 6.9; Monocytes # (A) 0.4 k/uL (0-1.0); Monocytes % (A) 6 %; Neutrophils # (A) 3.8 k/uL (1.3-7.7); Neutrophils % (A) 60 %; Platelet Count 180 k/uL (150-450); RDW 11.9 % (11.5-15.5); WBC 6.3 k/uL (3.8-10.6)
[2018-08-31 06:16] LABS: Blood Urea Nitrogen 27 mg/dL (9-20); Calcium 9.4 mg/dL (8.4-10.2); Carbon Dioxide 28 mmol/L (22-30); Cholesterol 114 mg/dL (<200); Glucose 104 mg/dL (74-99); HDL Cholesterol 40 mg/dL (40-60); LDL Cholesterol,Calculated 32 mg/dL (0-99); Triglycerides 212 mg/dL (<150)
[2018-08-31 06:21] LABS: Anion Gap 6 mmol/L; Chloride 105 mmol/L (98-107); Potassium 4.8 mmol/L (3.5-5.1); Sodium 139 mmol/L (137-145)
[2018-08-31] MEDS: NITROGLYCERIN OINT 1 INCH/GM PACKET TOPICAL SCH ×2 (06:54→08:56)
[2018-08-31] MEDS ORDERED: PANTOPRAZOLE 40 MG TABLET PO SCH (07:30)
[2018-08-31] MEDS ORDERED: ASPIRIN 325 MG TAB PO SCH (09:00)
[2018-08-31] MEDS ORDERED: CLOPIDOGREL 75 MG TAB PO SCH (09:00)
[2018-08-31] MEDS ORDERED: CAFFEINE CITRATE 60 MG/3 ML VIAL IV PRN (09:10)
[2018-08-31] MEDS ORDERED: REGADENOSON 0.4 MG/5 ML SYRINGE IV ONE (09:10)
--- NOTE | 2018-08-31 10:54 | P.CRDCN ---
History of Present Illness History of present illness: This is a pleasant 78-year-old male has medical history significant for coronary artery disease status post bypass grafting 2 first in 1988 with DAI to LAD and SVG to intermediate second in 1999 with radial artery to intermediate, status post permanent pacemaker implantation secondary to sick sinus syndrome, ischemic cardiomyopathy, chronic systolic heart failure, dyslipidemia and hypertension. He follows in the office with Dr. Santos. We have been asked to see him in consultation for symptoms of chest pain. Most recent cardiac catheterization performed in 2010 revealed a patent DAI to LAD, patent radial to intermediate branch and a closed circumflex, RCA with a 50% lesion and ejection fraction at that time was 45-50. He presented to the hospital with symptoms of progressive weakness and overall fatigue. He states he has recently been weaned off of his prescribed alprazolam and has not been feeling himself ever since. He has been experiencing hallucinations, hearing voices, nausea, chest pain, leg cramping and abdominal discomfort. He experienced a pain in the left precordial region described as achy sensation with no radiation to the arm, back, neck or jaw. He feels mildly short of breath at times not associated with exertion and light headed at times as well. He is seen and examined sitting in bed laying flat in no acute distress. He denies any current symptoms of chest pain. He denies palpitations, syncope, PND or orthopnea. EKG reveals atrial paced rhythm with T-wave inversions noted in all precordial leads with a PVC. When compared to previous EKG this is a not a new finding. Laboratory data reviewed, WBC 6.3, hemoglobin 14.7, ESR for, sodium 139, potassium 4.8, creatinine 0.75, cardiac enzymes negative 3, LDL 32, C-reactive protein less than 5 and NT proBNP 264. Current cardiac medications include aspirin 81 mg twice a day, atorvastatin 80 mg daily, Plavix 75 mg daily, Imdur 30 mg daily, losartan 25 mg daily, Toprol 50 mg daily and Aldactone 25 mg daily. Most recent echocardiogram obtained in the office April 2018 reveals impaired left ventricular systolic function with ejection fraction 45%, apical inferior and lateral wall hypokinesia noted. Most recent stress test performed in the office May 2017 with a Lexiscan stress test which revealed apical septal wall motion abnormality secondary to prior bypass surgery with fixed perfusion defects involving the anterolateral wall with no evidence of reversible cardiac ischemia at that time. At the time of my exam: CONSTITUTIONAL: Denies fever. Denies chills. EYES: Denies blurred vision. Denies vision changes. Denies eye pain. EARS, NOSE, MOUTH & THROAT: Denies headache. Denies sore throat. Denies ear pain. CARDIOVASCULAR: Denies chest pain. Denies shortness of breath. Denies orthopnea. Denies PND. Denies palpitations. RESPIRATORY: Denies cough. GASTROINTESTINAL: Denies abdominal pain. Denies diarrhea. Denies constipation. Denies nausea. Denies vomiting. MUSCULOSKELETAL: Denies myalgias. INTEGUMENTARY: Denies pruitis. Denies rash. NEUROLOGIC: Denies numbness. Denies tingling. Denies weakness. PSYCHIATRIC: Denies anxiety. Denies depression. ENDOCRINE: Denies fatigue. Denies weight change. Denies polydipsia. Denies polyurina. GENITOURINARY: Denies burning, hematuria or urgency with micturation. HEMATOLOGIC: Denies history of anemia. Denies bleeding. Blood pressure 115/72 heart rate 61 afebrile maintaining oxygen saturation on room air GENERAL: This is a 78-year-old male in no apparent distress at the time of my examination. HEENT: Head is atraumatic, normocephalic. Pupils are equal, round. Sclerae anicteric. Conjunctivae are clear. Mucous membranes of the mouth are moist. Neck is supple. There is no jugular venous distention. No carotid bruit is heard. LUNGS: Clear to auscultation no wheezes, rales or rhonchi. No chest wall tenderness is noted on palpation or with deep breathing. HEART: Regular rate and rhythm without murmurs, rubs or gallops. S1 and S2 heard. ABDOMEN: Soft, nontender. Bowel sounds are heard. No organomegaly noted. EXTREMITIES: No evidence of peripheral edema and no calf tenderness noted. VASCULAR: Radial and dorsalis pedis pulses palpated, no evidence of clubbing. NEUROLOGIC: Patient is awake, alert and oriented x3. ASSESSMENT Chest pain, atypical. An acute event has been ruled out. History of coronary artery disease s/p bypass grafting x2. Baseline EKG abnormalities chronic. Ishcemic cardiomyopathy Chronic systolic heart failure, currently euvolemic Hypertension Dyslipidemia Permanent pacemaker in place secondary to sick sinus syndrome PLAN An acute coronary event has been ruled out. Recent echocardiogram obtained in the office has been reviewed, we will not repeat on this admission. Perform Lexiscan stress test to assess for reversible cardiac ischemia. If abnormal we will consider coronary angiography, if normal he is stable from a cardiac perspective. Thank you kindly for this consultation. Nurse Practitioner note has been reviewed, I agree with a documented findings and plan of care. Patient was seen and examined. 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 SEVERAL NM'S, BRONCHITIS, DIVERTICULAR DISEASE,CHRONIC BACK PAIN , PROSTATE CA(HAD SX), CONSTIPATION, PALPITATIONS Last Myocardial Infarction Date:: UNK History of Any Multi-Drug Resistant Organisms: None Reported Past Surgical History: Coronary Bypass/CABG, Heart Catheterization With Stent, Prostate Surgery, Tonsillectomy Additional Past Surgical History / Comment(s): CABG TRIOLE VESSEL IN 1988 CABG [id number] IN 1999, THUMB CUT OFF HAD SX TO REATTATCH, COLONOSCOPY, PROSTATECTOMY , RUPTURED ACHILLIES TENDON REPAIR. 5 stents, LEIF CATARACATS Past Anesthesia/Blood Transfusion Reactions: No Reported Reaction Date of Last Stent Placement:: UNK Past Psychological History: Anxiety, Depression Smoking Status: Former smoker Past Alcohol Use History: None Reported Past Drug Use History: None Reported - Past Family History Father Family Medical History: Coronary Artery Disease (CAD), CVA/TIA Additional Family Medical History / Comment(s): CABG AND VALVE SX Mother Family Medical History: Dementia, Hypertension Additional Family Medical History / Comment(s): MOM IS ALIVE AT 97 YEARS OLD, L[facility]ING IN [facility] Medications and Allergies Home Medications Medication Instructions Recorded Confirmed Type Acetaminophen Tab [Tylenol] 1,000 mg PO DAILY PRN 06/28/15 08/30/18 History Donepezil [Aricept] 10 mg PO DAILY 06/28/15 08/30/18 History Venlafaxine HCl [Effexor] 37.5 mg PO BID 06/28/15 08/30/18 History Aspirin 81 mg PO BID chew 07/23/17 08/30/18 Rx Nitroglycerin Sl Tabs [Nitrostat] 0.4 mg SUBLINGUAL Q5M PRN tab 07/23/17 Rx Omeprazole [PriLOSEC] 40 mg PO AC-BRKFST #14 capsule.dr 07/23/17 08/30/18 Rx Meloxicam [Mobic] 15 mg PO DAILY 07/31/17 08/30/18 History Atorvastatin [Lipitor] 80 mg PO HS tab 08/06/17 08/30/18 Rx Clopidogrel [Plavix] 75 mg PO DAILY #30 tab 08/06/17 08/30/18 Rx Isosorbide Mononitrate ER [Imdur] 30 mg PO DAILY #30 tab.er.24h 08/06/17 Rx Losartan [Cozaar] 25 mg PO DAILY tab 08/06/17 08/30/18 Rx Metoprolol Succinate (ER) [Toprol 50 mg PO DAILY #30 tab.er.24h 08/06/17 Rx XL] Spironolactone [Aldactone] 25 mg PO DAILY #30 tab 08/06/17 08/30/18 Rx Allergies Allergy/AdvReac Type Severity Reaction Status Date / Time No Known Allergies Allergy Verified 08/30/18 13:53 Physical Exam Vitals: Vital Signs Temp Pulse Resp BP Pulse Ox 08/31/18 06:44 61 16 115/72 97 08/31/18 06:29 60 20 140/73 97 08/31/18 05:00 60 20 133/75 96 08/31/18 03:10 122/66 08/31/18 00:50 122/66 08/31/18 00:30 60 20 122/66 08/31/18 00:20 63 20 122/66 08/31/18 00:10 63 18 122/66 08/31/18 00:00 60 18 146/81 08/30/18 23:00 98.0 F 63 18 145/55 98 08/30/18 21:00 60 18 127/74 97 08/30/18 20:00 60 18 105/64 97 08/30/18 19:00 60 18 111/73 98 08/30/18 18:10 60 18 105/65 96 02/17/19 16:20 98.0 F 60 18 110/77 96 08/30/18 14:30 60 18 118/68 97 08/30/18 12:33 97.0 F L 60 18 148/93 97 Results 08/31/18 05:47 08/31/18 05:47 Cardiac Enzymes 08/30/18 08/30/18 08/30/18 Range/Units 12:46 12:46 18:36 AST 28 (17-59) U/L CK-MB (CK-2) 1.4 0.9 (0.0-2.4) ng/mL Troponin I <0.012 <0.012 (0.000-0.034) ng/mL 08/31/18 Range/Units 00:37 AST (17-59) U/L CK-MB (CK-2) 1.0 (0.0-2.4) ng/mL Troponin I <0.012 (0.000-0.034) ng/mL Coagulation 08/30/18 Range/Units 12:46 PT 10.1 (9.0-12.0) sec APTT 23.6 (22.0-30.0) sec Lipids 08/31/18 Range/Units 05:47 Triglycerides 212 H (<150) mg/dL Cholesterol 114 (<200) mg/dL HDL Cholesterol 40 (40-60) mg/dL CBC 08/30/18 08/31/18 Range/Units 12:46 05:47 WBC 6.3 6.3 (3.8-10.6) k/uL RBC 4.84 4.80 (4.30-5.90) m/uL Hgb 15.3 14.7 (13.0-17.5) gm/dL Hct 44.9 44.9 (39.0-53.0) % Plt Count 175 180 (150-450) k/uL Comprehensive Metabolic Panel 08/30/18 08/31/18 Range/Units 12:46 05:47 Sodium 139 139 (137-145) mmol/L Potassium 4.7 4.8 (3.5-5.1) mmol/L Chloride 103 105 (98-107) mmol/L Carbon Dioxide 29 28 (22-30) mmol/L BUN 26 H 27 H (9-20) mg/dL Creatinine 0.79 0.75 (0.66-1.25) mg/dL Glucose 95 104 H (74-99) mg/dL Calcium 9.7 9.4 (8.4-10.2) mg/dL AST 28 (17-59) U/L ALT 39 (21-72) U/L Alkaline Phosphatase 82 (38-126) U/L Total Protein 6.8 (6.3-8.2) g/dL Albumin 4.3 (3.5-5.0) g/dL Current Medications Generic Name Dose Route Start Last Admin Trade Name Freq PRN Reason Stop Dose Admin Acetaminophen 1,000 mg 08/30/18 17:42 Tylenol Tab PO DAILY PRN Pain Aspirin 325 mg 08/31/18 09:00 Aspirin PO DAILY [facility] Atorvastatin Calcium 80 mg 08/30/18 21:00 08/30/18 23:18 Lipitor PO 80 mg HS [facility] Administration Clopidogrel Bisulfate 75 mg 08/31/18 09:00 Plavix PO DAILY [facility] Donepezil HCl 10 mg 08/31/18 09:00 Aricept PO DAILY [facility] Heparin Sodium (Porcine) 5,000 unit 08/30/18 21:00 08/30/18 23:18 Heparin SQ 5,000 unit Q12HR [facility] Administration Losartan Potassium 25 mg 08/31/18 09:00 Cozaar PO DAILY [facility] Melatonin 3 mg 08/30/18 17:47 Melatonin PO HS PRN Insomnia Meloxicam 15 mg 08/31/18 09:00 Mobic PO DAILY [facility] Metoprolol Succinate 50 mg 08/31/18 09:00 Toprol Xl PO DAILY [facility] Nitroglycerin 0.5 inch 08/30/18 18:00 08/31/18 06:54 Nitro-Bid Oint TOPICAL 0.5 inch Q6HR [facility] Administration Nitroglycerin 0.4 mg 08/30/18 15:44 Nitrostat SUBLINGUAL Q5M PRN Chest Pain Pantoprazole Sodium 40 mg 08/31/18 07:30 Protonix PO AC-BRKFST [facility] Sodium Chloride 10 ml 08/30/18 21:00 08/30/18 23:18 Saline Flush IV 10 ml BID [facility] Administration Spironolactone 25 mg 08/31/18 09:00 Aldactone PO DAILY [facility] Venlafaxine HCl 37.5 mg 08/30/18 21:00 08/30/18 23:18 Effexor PO 37.5 mg BID [facility]ARD Administration 08/31/18 05:47 08/31/18 05:47
--- NOTE | 2018-08-31 10:55 | ECHOF ---
Referral Reason:chf MEASUREMENTS -------- HEIGHT: 175.3 cm WEIGHT: 73.5 kg BP: 115/72 RVIDd: 3.4 cm (< 3.3) IVSd: 1.2 cm (0.6 - 1.1) LVIDd: 4.7 cm (3.9 - 5.3) LVPWd: 1.5 cm (0.6 - 1.1) IVSs: 2.2 cm LVIDs: 3.0 cm LVPWs: 1.7 cm LA Diam: 3.2 cm (2.7 - 3.8) LAESV Index (A-L): 24.70 ml/m Ao Diam: 3.6 cm (2.0 - 3.7) AV Cusp: 2.2 cm (1.5 - 2.6) MV EXCURSION: 18.048 mm (> 18.000) MV EF SLOPE: 64 mm/s (70 - 150) EPSS: 1.0 cm MV E Troy: 0.48 m/s MV DecT: 555 ms MV A [place]: 0.91 m/s MV E/A Ratio: 0.52 RAP: 5.00 mmHg RVSP: 27.13 mmHg FINDINGS -------- Paced rhythm. This was a technically adequate study. The left ventricular size is normal. There is moderate concentric left ventricular hypertrophy. O verall left ventricular systolic function is mildly impaired with, an EF between 45 - 50 %. Apical anterior LV wall motion is hypokinetic. Apical septum LV wall motion is hypokinetic. The right ventricle is mildly enlarged. Normal LA size by volume 22+/-6 ml/m2. The right atrium is normal in size. There is mild aortic valve sclerosis. Trace to mild aortic regurgitation. Mild mitral annular calcification present. No mitral regurgitation. Mild tricuspid regurgitation present. Right ventricular systolic pressure is normal at < 35 mmHg. The pulmonic valve was not well visualized. The aortic root size is normal. Normal inferior vena cava with normal inspiratory collapse consistent with estimated right atrial pre ssure of 5 mmHg. There is no pericardial effusion. CONCLUSIONS -------- 1. Paced rhythm. 2. This was a technically adequate study. 3. The left ventricular size is normal. 4. There is moderate concentric left ventricular hypertrophy. 5. Overall left ventricular systolic function is mildly impaired with, an EF between 45 - 50 %. 6. Apical anterior LV wall motion is hypokinetic. 7. Apical septum LV wall motion is hypokinetic. 8. The right ventricle is mildly enlarged. 9. Normal LA size by volume 22+/-6 ml/m2. 10. The right atrium is normal in size. 11. There is mild aortic valve sclerosis. 12. Trace to mild aortic regurgitation. 13. Mild mitral annular calcification present. 14. No mitral regurgitation. 15. Mild tricuspid regurgitation present. 16. Right ventricular systolic pressure is normal at < 35 mmHg. 17. The pulmonic valve was not well visualized. 18. The aortic root size is normal. 19. Normal inferior vena cava with normal inspiratory collapse consistent with estimated right atrial pressure of 5 mmHg. 20. There is no pericardial effusion. SALES DEMONSTRATOR: Annita Mcghee RDCS
[2018-08-31] MEDS: PANTOPRAZOLE 40 MG TABLET PO SCH (12:43)
[2018-08-31] MEDS: LOSARTAN 25 MG TAB PO SCH (12:43)
[2018-08-31] MEDS: METOPROLOL SUCCINATE (ER) 50 MG TAB.ER.24H PO SCH (12:43)
[2018-08-31] MEDS: DONEPEZIL 10 MG TAB PO SCH (12:43)
[2018-08-31] MEDS: SPIRONOLACTONE 25 MG TAB PO SCH (12:43)
[2018-08-31] MEDS: VENLAFAXINE HCL 37.5 MG TAB PO SCH ×2 (12:44→20:12)
[2018-08-31] MEDS: MELOXICAM 7.5 MG TAB PO SCH (12:44)
[2018-08-31] MEDS: HEPARIN SODIUM,PORCINE 5,000 UNIT/ML 1 ML VIAL SQ SCH ×2 (12:45→20:09)
--- NOTE | 2018-08-31 14:03 | NM ---
EXAMINATION TYPE: NM stress lexiscan cardiolite DATE OF EXAM: 08/31/2018 COMPARISON: 10/28/2016 HISTORY: Chest pain, prior infarct TECHNIQUE: After the intravenous administration of 10.0 mCi Tc 99m Sestamibi - Cardiolite resting SP ECT images acquired 45 minutes post injection. The patient received 0.4mg Lexiscan, 26.0 mCi Tc 99m Sestamibi - Stress images obtained [address] injection FINDINGS: There is a large defect along the lateral wall. This has some extension into the anterior w all. Some inferior wall near the cardiac apex may also be involved. Polar maps suggest a may be some minimal reversibility at the cardiac apex. Ejection fraction is low at 48%. Some dyskinesia of the distal anterior wall near the apex is present . IMPRESSION: 1. Large fixed defect along the lateral wall compatible with prior infarct. 2. Polar maps suggest may be some minimal reversibility at the cardiac apex which is a changed from c omparison study of 2017. This appeared fixed previously 3. Mild dyskinesia of the anterior wall near the cardiac apex.
[2018-08-31] MEDS: MAG HYDROX/AL HYDROX/SIMETH 30 ML CUP PO SCH ×3 (15:49→20:12)
[2018-08-31] MEDS: ISOSORBIDE MONONITRATE ER 30 MG TAB.ER.24H PO SCH (15:49)
--- NOTE | 2018-08-31 16:00 | EST ---
EXERCISE STRESS DATE OF SERVICE: 08/31/2018 AGE: 78 SEX: Male. HT: 5'9" WT: 162 pounds. PROTOCOL: Lexiscan Cardiolite. STAGE: DURATION OF EXERCISE: HEART RATE REST: 64 BLOOD PRESSURE REST: 121/87 MAXIMUM HEART RATE ACHIEVED: 92 MAXIMUM BLOOD PRESSURE: 135/59 85% MPHR: 100% MPHR: METS: INDICATIONS: Chest pain. CLINICAL INFORMATION: STRESS DATA: Pre-testing physical examination showed a heart rate of 64, pressure 121/87 mmHg. Baseline EKG showed sinus mechanism. Baseline rhythm showed atrial paced rhythm. Lexiscan 0.4 mg was given over 15 seconds per protocol. Max heart rate was 92 beats per minute and maximum pressure was 135/59 mmHg. Clinically the patient did not have any symptoms of chest pain or discomfort and the EKG did not show any significant ST or T-wave abnormalities, besides T-wave inversion laterally by the end. CONCLUSION: 1. Nondiagnostic electrocardiogram stress testing in response to Lexiscan. 2. Please follow up on the Cardiolite portion on separate report from Radiology Department. MMODL / IJN: [id number] /
--- NOTE | 2018-08-31 16:13 | P.CNPUL ---
History of Present Illness Consult date: 08/31/18 Requesting physician: Aminta Durant Chief complaint: chest pain History of present illness: This is 78-year-old white male patient was with Dr. Morales for primary care services, past medical history coronary artery disease with history of previous coronary artery bypass grafting, PCI and stenting, COPD, hypertension, osteoarthritis, dementia, former smoker, previous episode of TIA, ischemic cardiomyopathy with EF of 30-35%, 6 sinus rhythm status post permanent pacemaker implantation, chronic congestive heart failure with systolic dysfunction, who came into the hospital on O2 2018 per EMS for complaints of chest discomfort, lightheadedness, insomnia, diffuse tingling. Patient apparently stopped his alprazolam 2 weeks ago, and has been feeling poorly since , he is experiencing hallucinations, hearing voices, he is nauseous, having chest discomfort, leg cramping, diffuse tingling all over. He denied any shortness of breath, denied any cough or congestion. Patient was also having trouble sleeping at night. chest x-ray showed a normal pleural reaction at the lateral left lung base, without acute process. Brain CT showed extensive chronic white matter disease consistent with chronic small vessel ischemia, no acute intracranial abnormality. EKG showed atrial paced rhythm, with ST and T- wave abnormality likely related to anterolateral ischemia. White blood cell count was 6.3, hemoglobin was 15.3, dimer was negative, electrolytes and renal profile were unremarkable, opponents and cardiac enzymes were negative 3, proBNP was within normal limits at 264, urinalysis was negative. echocardiogram showed moderate concentric left ventricular hypertrophy, mildly impaired left ventricular systolic function, with EF of 45-50%, no pulmonary hypertension. Patient underwent a Lexiscan stress test which showed large fixed defect along the lateral wall compatible with prior infarct, some minimal reversibility at the cardiac apex and mild dyskinesia of the anterior wall near the cardiac apex. presently patient is resting comfortably in bed, room air pulse ox is 95% , patient is afebrile, hemodynamically stable. Review of Systems All systems: negative Constitutional: Denies chills, Denies fever Eyes: denies blurred vision, denies pain Ears, nose, mouth and throat: Denies headache, Denies sore throat Cardiovascular: Denies chest pain, Denies shortness of breath Respiratory: Denies cough Gastrointestinal: Denies abdominal pain, Denies diarrhea, Denies nausea, Denies vomiting Musculoskeletal: Denies myalgias Integumentary: Denies pruritus, Denies rash Neurological: Denies numbness, Denies weakness Psychiatric: Denies anxiety, Denies depression Endocrine: Denies fatigue, Denies weight change Past Medical History Past Medical History: Coronary Artery Disease (CAD), Cancer, Chest Pain / Angina , COPD, Dementia, GERD/Reflux, Hyperlipidemia, Hypertension, Memory Impairment, Myocardial Infarction (LA), Osteoarthritis (OA), Pneumonia Additional Past Medical History / Comment(s): PER PAST MEDICAL(2011) RECORD PT STATED" 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 SEVERAL LA'S, BRONCHITIS, DIVERTICULAR DISEASE,CHRONIC BACK PAIN , PROSTATE CA(HAD SX), CONSTIPATION, PALPITATIONS Last Myocardial Infarction Date:: UNK History of Any Multi-Drug Resistant Organisms: None Reported Past Surgical History: Coronary Bypass/CABG, Heart Catheterization With Stent, Prostate Surgery, Tonsillectomy Additional Past Surgical History / Comment(s): CABG TRIOLE VESSEL IN 1988 CABG [id number] IN 1999, THUMB CUT OFF HAD SX TO REATTATCH, COLONOSCOPY, PROSTATECTOMY , RUPTURED ACHILLIES TENDON REPAIR. 5 stents, LEIF CATARACATS Past Anesthesia/Blood Transfusion Reactions: No Reported Reaction Date of Last Stent Placement:: UNK Type of Cardiac Device: Permanent Pacemaker Device Placement Date:: 08/05/17 Past Psychological History: Anxiety, Depression Smoking Status: Former smoker Past Alcohol Use History: None Reported Past Drug Use History: None Reported - Past Family History Father Family Medical History: Coronary Artery Disease (CAD), CVA/TIA Additional Family Medical History / Comment(s): CABG AND VALVE SX Mother Family Medical History: Dementia, Hypertension Additional Family Medical History / Comment(s): MOM IS ALIVE AT 97 YEARS OLD, L[facility]ING IN [facility] Medications and Allergies Home Medications Medication Instructions Recorded Confirmed Type Acetaminophen Tab [Tylenol] 1,000 mg PO DAILY PRN 06/28/15 08/30/18 History Donepezil [Aricept] 10 mg PO DAILY 06/28/15 08/30/18 History Venlafaxine HCl [Effexor] 37.5 mg PO BID 06/28/15 08/30/18 History Aspirin 81 mg PO BID chew 07/23/17 08/30/18 Rx Nitroglycerin Sl Tabs [Nitrostat] 0.4 mg SUBLINGUAL Q5M PRN tab 07/23/17 Rx Omeprazole [PriLOSEC] 40 mg PO AC-BRKFST #14 capsule.dr 07/23/17 08/30/18 Rx Meloxicam [Mobic] 15 mg PO DAILY 07/31/17 08/30/18 History Atorvastatin [Lipitor] 80 mg PO HS tab 08/06/17 08/30/18 Rx Clopidogrel [Plavix] 75 mg PO DAILY #30 tab 08/06/17 08/30/18 Rx Isosorbide Mononitrate ER [Imdur] 30 mg PO DAILY #30 tab.er.24h 08/06/17 Rx Losartan [Cozaar] 25 mg PO DAILY tab 08/06/17 08/30/18 Rx Metoprolol Succinate (ER) [Toprol 50 mg PO DAILY #30 tab.er.24h 08/06/17 Rx XL] Spironolactone [Aldactone] 25 mg PO DAILY #30 tab 08/06/17 08/30/18 Rx Allergies Allergy/AdvReac Type Severity Reaction Status Date / Time No Known Allergies Allergy Verified 08/30/18 13:53 Physical Exam Vitals: Vital Signs Temp Pulse Pulse Resp BP BP BP 08/31/18 15:21 98.1 F 60 18 138/82 08/31/18 12:00 98.3 F 62 18 147/88 08/31/18 08:00 97.9 F 61 18 167/83 08/31/18 06:44 61 16 115/72 08/31/18 06:29 60 20 140/73 08/31/18 05:00 60 20 133/75 08/31/18 03:10 122/66 08/31/18 00:50 122/66 08/31/18 00:30 60 20 122/66 08/31/18 00:20 63 20 122/66 08/31/18 00:10 63 18 122/66 08/31/18 00:00 60 18 146/81 08/30/18 23:00 98.0 F 63 18 145/55 08/30/18 21:00 60 18 127/74 08/30/18 20:00 60 18 105/64 08/30/18 19:00 60 18 111/73 08/30/18 18:10 60 18 105/65 08/30/18 16:20 98.0 F 60 18 110/77 BP BP Pulse Ox 08/31/18 15:21 95 08/31/18 12:00 131/84 149/83 96 08/31/18 08:00 123/71 149/88 93 L 08/31/18 06:44 97 08/31/18 06:29 97 08/31/18 05:00 96 08/31/18 03:10 08/31/18 00:50 08/31/18 00:30 08/31/18 00:20 08/31/18 00:10 08/31/18 00:00 08/30/18 23:00 98 08/30/18 21:00 97 08/30/18 20:00 97 08/30/18 19:00 98 08/30/18 18:10 96 08/30/18 16:20 96 Intake and Output 08/31/18 08/31/18 08/31/18 06:59 14:59 22:59 Other: Weight 73.482 kg GENERAL EXAM: Alert, active, comfortable in no apparent distress. HEAD: Normocephalic/atraumatic. EYES: Normal reaction of pupils, equal size. Conjunctiva pink, sclera white. NOSE: Clear with pink turbinates. THROAT: No erythema or exudates. NECK: No masses, no JVD, no thyroid enlargement, no adenopathy. CHEST: No chest wall deformity. Symmetrical expansion. LUNGS: Equal air entry, no rales, no rhonchi. CVS: Regular rate and rhythm, normal S1 and S2, no gallops, no murmurs, no rubs ABDOMEN: Soft, nontender. No hepatosplenomegaly, normal bowel sounds, no guarding or rigidity. EXTREMITIES: No clubbing, no edema, no cyanosis, 2+ pulses and upper and lower extremities. MUSCULOSKELETAL: Muscle strength and tone normal. SPINE: No scoliosis or deformity SKIN: No rashes CENTRAL NERVOUS SYSTEM: Alert and oriented -3. No focal deficits, tone is normal in all 4 extremities. PSYCHIATRIC: Alert and oriented -3. Appropriate affect. Intact judgment and insight. Results - Laboratory Findings CBC and BMP: 08/31/18 05:47 08/31/18 05:47 PT/INR, D-dimer PT 10.1 sec (9.0-12.0) 08/30/18 12:46 INR 0.9 (<1.2) 08/30/18 12:46 Abnormal lab findings: Abnormal Labs 08/30/18 08/30/18 08/30/18 12:46 12:46 18:36 BUN 26 H Glucose Total Creatine Kinase 51 L 41 L Triglycerides 08/31/18 08/31/18 00:37 05:47 BUN 27 H Glucose 104 H Total Creatine Kinase 44 L Triglycerides 212 H - Diagnostic Findings Chest x-ray: report reviewed, image reviewed Additional studies: EKG reviewed Assessment and Plan Plan: Assessment: #1. Acute chest pain, under investigation. 3 sets of cardiac troponins and enzymes were negative, EKG showed evidence of anterolateral ischemia. Lexiscan stress test showed large fixed defect along the lateral wall metabolic prior infarct, at the cardiac apex and mild dyskinesia of the anterior wall near the cardiac apex. #2. Acute benzodiazepine withdrawal syndrome, patient presented with anxiety, hallucinations, hearing voices, diffuse tingling, insomnia, chest discomfort #3. history of ischemic cardiomyopathy, today's echocardiogram showed mildly impaired left ventricular systolic function with an EF of 45-50% proof from previously documented ejection fraction of 30-35% #4. Coronary artery disease, with history of coronary artery bypass grafting, PCI and stenting #5. COPD, not oxygen dependent at baseline, with no signs of current exacerbation #6. Hypertension #7. Osteoarthritis #8. History of dementia #9. History of nicotine dependence, currently in remission Plan: Patient is awake and alert, currently chest pain-free, and also the Lexiscan stress test have been noted, and we are expecting further recommendations from cardiology. From pulmonary perspective patient's COPD is stable, no shortness of breath, no chest congestion, no cough, no wheezing. No further recommendations from pulmonary perspective. I performed a history & physical examination of the patient and discussed their management with my nurse practitioner, Deepika Bravo. I reviewed the nurse practitioner's note and agree with the documented findings and plan of care. Lung sounds are positive for clear lung sounds. The findings and the impression was discussed with the patient. I attest to the documentation by the nurse practitioner. Time with Patient: Greater than 30
--- NOTE | 2018-08-31 18:27 | PN ---
PROGRESS NOTE DATE OF SERVICE: 08/31/2018 This 78-year-old gentleman who was admitted with generalized weakness and tiredness is being closely monitored. Cardiology and pulmonology evaluations are progressing. A Lexiscan stress test was done which showed a large fixed defect on the lateral wall compatible with a prior infarct. Minimal reversibility was also noted. Mild dyskinesia of the anterior wall also noted. A 2D echo with Doppler was done which showed ejection fraction of 45% to 50%. The patient is not orthostatic. No chest pain. No palpitations. No fever. On exam, alert and oriented x3. Pulse is 62, blood pressure 147/80, respiration 18, temperature 98.3, pulse ox 96% on room air. HEENT: Conjunctivae normal. NECK: No jugular venous distention. CARDIOVASCULAR SYSTEM: S1, S2 muffled. RESPIRATORY SYSTEM: Breath sounds diminished at the bases. A few scattered rhonchi. No crackles. ABDOMEN: Soft, non-tender. LEGS: No edema. No swelling. NERVOUS SYSTEM: No focal deficit. Labs at this time show WBC 6.3, hemoglobin 14.7, sodium 139, potassium 4.8. Triglycerides are 212. ASSESSMENT: 1. Chest pain, possible unstable angina. 2. Status post stress test showing previous fixed defect as well as some minimal reversibility. 3. Congestive heart failure with chronic systolic dysfunction, ejection fraction 45% to 50% with apical hypokinesia. 4. Generalized weakness. 5. No evidence orthostatic hypotension. 6. History of coronary artery disease, coronary artery bypass grafting. 7. History of ischemic cardiomyopathy. 8. History of chronic congestive heart failure with ejection fraction 45% to 50% with chronic systolic dysfunction. 9. History of chronic obstructive pulmonary disease. 10.Dementia. 11.Gastroesophageal reflux disease. 12.Hypertension. 13.Hyperlipidemia. 14.History of myocardial infarction. 15.History of pneumonia. 16.History of coronary artery disease, coronary artery bypass grafting with stent. 17.History of anxiety, depression. 18.Remote history of nicotine dependence. RECOMMENDATIONS AND DISCUSSION: I recommend to continue current medications, continue with the monitoring, symptomatic treatment. Follow up with Cardiology and Pulmonology. Increase ambulation. Further recommendations to follow. I would also recommend a D-dimer. MMODL / IJN: [id number] /
[2018-08-31] MEDS: ATORVASTATIN 80 MG TAB PO SCH ×2 (20:09→20:12)
[2018-08-31] MEDS: MELATONIN 3 MG TABLET PO PRN ×2 (21:59→22:00)
[2018-09-01 07:00] LABS: Anion Gap 5 mmol/L; Blood Urea Nitrogen 22 mg/dL (9-20); Calcium 9.2 mg/dL (8.4-10.2); Carbon Dioxide 29 mmol/L (22-30); Chloride 105 mmol/L (98-107); Glucose 114 mg/dL (74-99); Potassium 4.2 mmol/L (3.5-5.1); Sodium 139 mmol/L (137-145)
[2018-09-01 07:05] LABS: Basophils % (A) 1 %; Eosinophils # (A) 0.1 k/uL (0-0.7); Eosinophils % (A) 2 %; HCT 42.7 % (39.0-53.0); HGB 14.3 gm/dL (13.0-17.5); Lymphocytes # (A) 1.7 k/uL (1.0-4.8); Lymphocytes % (A) 27 %; MCH 31.3 pg (25.0-35.0); MCHC 33.5 g/dL (31.0-37.0); MCV 93.4 fL (80.0-100.0); Mean Platelet Volume 7.7; Monocytes # (A) 0.4 k/uL (0-1.0); Monocytes % (A) 7 %; Neutrophils # (A) 3.8 k/uL (1.3-7.7); Neutrophils % (A) 60 %; Platelet Count 165 k/uL (150-450); RBC 4.57 m/uL (4.30-5.90); RDW 12.2 % (11.5-15.5); WBC 6.3 k/uL (3.8-10.6)
[2018-09-01] MEDS ORDERED: ASPIRIN 325 MG TAB PO STA (08:11)
[2018-09-01] MEDS ORDERED: ALPRAZolam 0.5 MG TAB PO PRN (08:11)
[2018-09-01] MEDS ORDERED: ALPRAZolam 0.25 MG TAB PO PRN (08:11)
[2018-09-01] MEDS ORDERED: SODIUM CHLORIDE 0.9% 1,000 ML in EMPTY BAG 1 BAG IV ONE (08:11)
[2018-09-01] MEDS: SPIRONOLACTONE 25 MG TAB PO SCH (08:25)
[2018-09-01] MEDS: ISOSORBIDE MONONITRATE ER 30 MG TAB.ER.24H PO SCH (08:25)
[2018-09-01] MEDS: DONEPEZIL 10 MG TAB PO SCH (08:25)
[2018-09-01] MEDS: PANTOPRAZOLE 40 MG TABLET PO SCH (08:25)
[2018-09-01] MEDS: HEPARIN SODIUM,PORCINE 5,000 UNIT/ML 1 ML VIAL SQ SCH ×2 (08:25→20:31)
[2018-09-01] MEDS: METOPROLOL SUCCINATE (ER) 50 MG TAB.ER.24H PO SCH (08:25)
[2018-09-01] MEDS: LOSARTAN 25 MG TAB PO SCH (08:25)
[2018-09-01] MEDS: VENLAFAXINE HCL 37.5 MG TAB PO SCH ×2 (08:26→20:31)
[2018-09-01] MEDS: MELOXICAM 7.5 MG TAB PO SCH (08:37)
[2018-09-01] MEDS: ASPIRIN 81 MG PO SCH (08:39)
[2018-09-01] MEDS ORDERED: TEMAZEPAM 30 MG CAP PO PRN (11:43)
[2018-09-01] MEDS ORDERED: LIDOCAINE 1% INJ 10MG/ML (20 ML MDV) ONE (14:40)
--- NOTE | 2018-09-01 14:41 | P.PN ---
Subjective Progress Note Date: 09/01/18 Principal diagnosis: Acute chest pain, acute benzodiazepine withdrawal syndrome This is 78-year-old white male patient was with Dr. Morales for primary care services, past medical history coronary artery disease with history of previous coronary artery bypass grafting, PCI and stenting, COPD, hypertension, osteoarthritis, dementia, former smoker, previous episode of TIA, ischemic cardiomyopathy with EF of 30-35%, 6 sinus rhythm status post permanent pacemaker implantation, chronic congestive heart failure with systolic dysfunction, who came into the hospital on 2018 per EMS for complaints of chest discomfort, lightheadedness, insomnia, diffuse tingling. Patient apparently stopped his alprazolam 2 weeks ago, and has been feeling poorly since , he is experiencing hallucinations, hearing voices, he is nauseous, having chest discomfort, leg cramping, diffuse tingling all over. He denied any shortness of breath, denied any cough or congestion. Patient was also having trouble sleeping at night. chest x-ray showed a normal pleural reaction at the lateral left lung base, without acute process. Brain CT showed extensive chronic white matter disease consistent with chronic small vessel ischemia, no acute intracranial abnormality. EKG showed atrial paced rhythm, with ST and T- wave abnormality likely related to anterolateral ischemia. White blood cell count was 6.3, hemoglobin was 15.3, dimer was negative, electrolytes and renal profile were unremarkable, opponents and cardiac enzymes were negative 3, proBNP was within normal limits at 264, urinalysis was negative. echocardiogram showed moderate concentric left ventricular hypertrophy, mildly impaired left ventricular systolic function, with EF of 45-50%, no pulmonary hypertension. Patient underwent a Lexiscan stress test which showed large fixed defect along the lateral wall compatible with prior infarct, some minimal reversibility at the cardiac apex and mild dyskinesia of the anterior wall near the cardiac apex. presently patient is resting comfortably in bed, room air pulse ox is 95% , patient is afebrile, hemodynamically stable. On 09/01/2018 patient is seen in follow-up on observation unit. He is calm and comfortable, in no acute distress, he is on room air, with pulse ox of 94%, afebrile, hemodynamically stable, denies any chest pain. Patient as in his has been resumed, patient is asking if his temazepam could be resumed for bedtime sleep aid. Patient is scheduled for heart catheterization today. No chest pain , no shortness of breath. Objective - Vital Signs Vital signs: Vital Signs Temp 97.6 F 09/01/18 12:00 Pulse 62 09/01/18 12:00 Resp 18 09/01/18 12:00 BP 130/71 09/01/18 12:00 Pulse Ox 94 L 09/01/18 12:00 Intake & Output 08/31/18 09/01/18 09/01/18 18:59 06:59 18:59 Intake Total 240 Balance 240 Weight 73.482 kg Intake: Oral 240 Other: Voiding Method Toilet Toilet - Exam GENERAL EXAM: Alert, active, comfortable in no apparent distress. HEAD: Normocephalic/atraumatic. EYES: Normal reaction of pupils, equal size. Conjunctiva pink, sclera white. NOSE: Clear with pink turbinates. THROAT: No erythema or exudates. NECK: No masses, no JVD, no thyroid enlargement, no adenopathy. CHEST: No chest wall deformity. Symmetrical expansion. LUNGS: Equal air entry, no rales, no rhonchi. CVS: Regular rate and rhythm, normal S1 and S2, no gallops, no murmurs, no rubs ABDOMEN: Soft, nontender. No hepatosplenomegaly, normal bowel sounds, no guarding or rigidity. EXTREMITIES: No clubbing, no edema, no cyanosis, 2+ pulses and upper and lower extremities. MUSCULOSKELETAL: Muscle strength and tone normal. SPINE: No scoliosis or deformity SKIN: No rashes CENTRAL NERVOUS SYSTEM: Alert and oriented -3. No focal deficits, tone is normal in all 4 extremities. PSYCHIATRIC: Alert and oriented -3. Appropriate affect. Intact judgment and insight. - Labs CBC & Chem 7: 09/01/18 06:13 09/01/18 06:13 Labs: Abnormal Lab Results - Last 24 Hours (Table) 09/01/18 Range/Units 06:13 BUN 22 H (9-20) mg/dL Glucose 114 H (74-99) mg/dL Assessment and Plan Plan: Assessment: #1. Acute chest pain, under investigation. 3 sets of cardiac troponins and enzymes were negative, EKG showed evidence of anterolateral ischemia. Lexiscan stress test showed large fixed defect along the lateral wall metabolic prior infarct, at the cardiac apex and mild dyskinesia of the anterior wall near the cardiac apex. #2. Acute benzodiazepine withdrawal syndrome, patient presented with anxiety, hallucinations, hearing voices, diffuse tingling, insomnia, chest discomfort #3. history of ischemic cardiomyopathy, today's echocardiogram showed mildly impaired left ventricular systolic function with an EF of 45-50% proof from previously documented ejection fraction of 30-35% #4. Coronary artery disease, with history of coronary artery bypass grafting, PCI and stenting #5. COPD, not oxygen dependent at baseline, with no signs of current exacerbation #6. Hypertension #7. Osteoarthritis #8. History of dementia #9. History of nicotine dependence, currently in remission Plan: No difficulty breathing, no chest pain, vital signs are stable. He is scheduled for heart catheterization today. Resume patient's Restoril 30 mg at bedtime. No acute complaints. Continue to follow I performed a history & physical examination of the patient and discussed their management with my nurse practitioner, Deepika Bravo. I reviewed the nurse practitioner's note and agree with the documented findings and plan of care. Lung sounds are positive for clear lung sounds. The findings and the impression was discussed with the patient. I attest to the documentation by the nurse practitioner. Time with Patient: Less than 30
[2018-09-01] MEDS ORDERED: IV FLUID CONTINUATION 1,000 ML IV ONE (14:53)
[2018-09-01] MEDS ORDERED: MIDAZOLAM 2 MG/2 ML VIAL IV ONE ×2 (15:05→15:52)
[2018-09-01] MEDS ORDERED: LIDOCAINE 1% INJ 10MG/ML (20 ML MDV) SQ ONE (15:11)
[2018-09-01] MEDS ORDERED: BIVALIRUDIN BOLUS 250 MG/50 ML IV ONE (15:38)
[2018-09-01] MEDS ORDERED: BIVALIRUDIN 250 MG in SODIUM CHLORIDE 0.9% 50 ML IV ONE (15:38)
[2018-09-01] MEDS ORDERED: CLOPIDOGREL 75 MG TAB ONE (15:43)
[2018-09-01] MEDS ORDERED: CLOPIDOGREL 75 MG TAB PO ONE (15:50)
[2018-09-01] MEDS ORDERED: NITROGLYCERIN 1000MCG/10ML SYRINGE INTRAARTER ONE (15:53)
[2018-09-01] MEDS ORDERED: IOPAMIDOL-370 150ML BTL INJ ONE (15:55)
[2018-09-01] MEDS ORDERED: RX INFO: IV CONTRAST WAS GIVEN 1 EACH MISC MISCELLANE PRN (16:04)
[2018-09-01] MEDS ORDERED: ATROPINE SULFATE 0.1 MG/ML 10ML SYRINGE IV PRN (16:04)
[2018-09-01] MEDS ORDERED: MAG HYDROX/AL HYDROX/SIMETH 30 ML CUP ONE ×2 (16:10→16:13)
[2018-09-01] MEDS ORDERED: SODIUM CHLORIDE 0.9% 1,000 ML IV SCH (16:15)
[2018-09-01] MEDS ORDERED: MAG HYDROX/AL HYDROX/SIMETH 30 ML CUP PO ONE (16:22)
[2018-09-01] MEDS: MAG HYDROX/AL HYDROX/SIMETH 30 ML CUP PO SCH (20:31)
--- NOTE | 2018-09-01 21:00 | PN ---
PROGRESS NOTE DATE OF SERVICE: 09/01/2018 This 78-year-old gentleman admitted with multiple medical issues, had abnormal stress test. Cardiology is planning cardiac cath today. No chest pain. No palpitations. No fever. EXAM: Alert and oriented x3. Pulse 61. Blood pressure 178/70, temperature normal. Pulse ox 98% on room air. HEENT: Conjunctivae normal. NECK: No jugular venous distention. CARDIOVASCULAR: S1, S2 muffled. Respirations: Breath sounds diminished in the bases. No rhonchi. No crackles. Abdomen is soft, nontender. Nervous system: No focal deficits. LABS: CBC within normal limits. Glucose 149. ASSESSMENT: 1. Chest pain possible unstable angina. 2. Status post stress test showing previous fixed defect as well as some minimal reversibility. 3. Congestive heart failure with chronic systolic dysfunction, ejection fraction 40-50 percent with apical hypokinesia. 4. Generalized weakness. 5. No evidence of orthostatic hypotension. 6. History of coronary artery disease, coronary artery bypass grafting. 7. History of ischemic cardiomyopathy. 8. History of chronic congestive heart failure with chronic systolic dysfunction, EF 45 to 50%. 9. History of chronic obstructive pulmonary disease. 10.Dementia. 11.Gastroesophageal reflux disease. 12.Hypertension. 13.Hyperlipidemia. 14.History of myocardial infarction. 15.History of pneumonia. 16.History of coronary artery disease. 17.History of coronary artery bypass grafting, stent. 18.History of anxiety, depression. 19.Remote history of nicotine dependence. RECOMMENDATIONS AND DISCUSSION: Continue current medication, continue to monitor. Symptomatic treatment. Otherwise, at this time, we will monitor the patient closely. Otherwise, I would recommend close follow up with Cardiology with a cardiac cath. Further recommendations to follow. See orders for details. MMODL / IJN: [id number] /
--- NOTE | 2018-09-01 23:37 | PTCA ---
PERCUTANEOUSTRANS CORORONARY ANGIOGRAPHY DATE OF SERVICE: 09/01/2018 PERFORMING PHYSICIAN: Amador Camargo MD, printing estimator. PROCEDURES PERFORMED: 1. Selective left and right coronary angiogram. 2. Left internal mammary artery to left anterior descending coronary artery angiogram. 3. Radial artery to left circumflex angiogram. 4. Successful stenting of the anastomosis of left internal mammary artery to left anterior descending coronary artery using 3.25 x 12 mm Xience drug-eluting stent with excellent angiographic results and reduction of stenosis from 99% to 0%. INDICATION: This is a pleasant 78-year-old gentleman who sees Dr. Pfeiffer in the office on a regular basis with a past medical history significant for coronary artery disease and prior coronary artery bypass grafting as well as redo CABG. The last heart catheterization was performed in 2006 and revealed severe 2-vessel coronary artery disease and intermediate one-vessel coronary artery disease. At that point the patient was found to have DAI to LAD that was patent and radial artery to left circumflex that was patent as well. He did have intermediate disease involving the right coronary artery. This time he presented to the hospital with chest discomfort and underwent myocardial perfusion imaging stress test and that revealed anterior ischemia. Because of that, heart catheterization was advised. APPROACH: Right common femoral artery. COMPLICATIONS: None. LEVEL OF SEDATION: Moderate, with sedation length of 50 minutes. PROCEDURE DESCRIPTION: After obtaining informed consent, the patient was brought to the cardiac prestressed concrete laborer. The right common femoral artery was cannulated using micropuncture technique. The micropuncture wire passed easily. Then I placed a 6-Tajik sheath 11 cm in the right common femoral artery. After that, I did selective left and right coronary angiogram using JL4 and JR4 catheters. After that, I did left internal mammary artery angiogram using an IM catheter and I did also radial artery to OM angiogram using an IM catheter as well. After that I did intervene on the DAI to LAD. Please see a separate paragraph for that. SELECTIVE CORONARY ANGIOGRAM: 1. The right coronary artery is a large-caliber vessel and it is a dominant vessel. The proximal right has a lesion that appeared to be in the range of 70%. The mid right has mild disease only and the right distally appeared to have mild disease only and bifurcates into PDA and PLV branches; both are angiographically normal. 2. The left main appeared to be angiographically normal. It bifurcates into left circumflex and left anterior descending artery. 3. The left circumflex is a large-caliber vessel and it is 100% occluded in the mid portion. 4. The LAD is 100% occluded in the mid portion. ANGIOGRAM OF CORONARY ARTERY BYPASSES: 1. The DAI to LAD has a lesion that appeared to be critical and appeared to be in the range of 90%. This is by the anastomosis with the LAD. The LAD after that appeared to be angiographically normal. 2. The radial artery to OM appeared to have a critical lesion in the ostium that appeared to be in the range of 99%. Distal OM anastomosis also has a lesion that appeared to be in the range of 70% to 80%. PCI OF THE DAI TO LAD: Anticoagulation was initiated using Angiomax. Subsequently I engaged the DAI using an IM guide. I did wire it using a Whisper wire. I did balloon angioplasty using a 3.0 x 12 mm balloon before I deployed a 3.25 x 12 mm Xience drug-eluting stent where the stent was positioned under fluoroscopic guidance and deployed under 12 atmospheres for 20 seconds with the following angiogram showing good angiographic results with reduction of stenosis from 99% to 0%. The procedure was completed without any complication. CONCLUSION: 1. Severe triple-vessel coronary artery disease. 2. Critical disease involving the anastomosis of DAI to LAD. 3. Critical disease involving the proximal anastomosis of radial artery to OM. 4. Severe disease involving the proximal right coronary artery. 5. Successful stenting of anastomosis of DAI to LAD using a 3.25 x 12 mm Xience drug- eluting stent with excellent angiographic results. POST-PROCEDURE MANAGEMENT: 1. Maximize medical treatment. 2. PCI of the radial artery to OM as well as the right coronary artery to be in a separate session. MMODL / IJN: [id number] /
[2018-09-02] MEDS: PANTOPRAZOLE 40 MG TABLET PO SCH (06:06)
[2018-09-02 06:19] LABS: Basophils % (A) 1 %; Eosinophils # (A) 0.3 k/uL (0-0.7); Eosinophils % (A) 4 %; HCT 45.4 % (39.0-53.0); HGB 14.5 gm/dL (13.0-17.5); Lymphocytes # (A) 1.4 k/uL (1.0-4.8); Lymphocytes % (A) 24 %; MCH 30.5 pg (25.0-35.0); MCV 95.3 fL (80.0-100.0); Mean Platelet Volume 6.8; Monocytes # (A) 0.4 k/uL (0-1.0); Monocytes % (A) 7 %; Neutrophils # (A) 3.8 k/uL (1.3-7.7); Neutrophils % (A) 63 %; Platelet Count 171 k/uL (150-450); RBC 4.76 m/uL (4.30-5.90); RDW 12.1 % (11.5-15.5)
[2018-09-02 06:28] LABS: Anion Gap 6 mmol/L; Blood Urea Nitrogen 21 mg/dL (9-20); Calcium 9.3 mg/dL (8.4-10.2); Carbon Dioxide 28 mmol/L (22-30); Chloride 106 mmol/L (98-107); Glucose 96 mg/dL (74-99); Potassium 4.5 mmol/L (3.5-5.1); Sodium 140 mmol/L (137-145)
[2018-09-02] MEDS: VENLAFAXINE HCL 37.5 MG TAB PO SCH (08:14)
[2018-09-02] MEDS: MAG HYDROX/AL HYDROX/SIMETH 30 ML CUP PO SCH (08:14)
[2018-09-02] MEDS: SPIRONOLACTONE 25 MG TAB PO SCH (08:15)
[2018-09-02] MEDS: METOPROLOL SUCCINATE (ER) 50 MG TAB.ER.24H PO SCH (08:15)
[2018-09-02] MEDS: ISOSORBIDE MONONITRATE ER 30 MG TAB.ER.24H PO SCH (08:15)
[2018-09-02] MEDS: DONEPEZIL 10 MG TAB PO SCH (08:15)
[2018-09-02] MEDS: MELOXICAM 7.5 MG TAB PO SCH (08:15)
[2018-09-02] MEDS: LOSARTAN 25 MG TAB PO SCH (08:15)
[2018-09-02] MEDS: ASPIRIN 81 MG PO SCH (08:15)
[2018-09-02] MEDS: HEPARIN SODIUM,PORCINE 5,000 UNIT/ML 1 ML VIAL SQ SCH (08:16)
[2018-09-02 08:25] VITALS: PULSE 60
[2018-09-02] MEDS ORDERED: CLOPIDOGREL 75 MG TAB PO SCH (09:00)
[2018-09-02 11:31] VITALS: BP 108/71; RESP 17; TEMP 98.2
[2018-09-02 14:28] VITALS: BMI 23.9
--- NOTE | 2018-09-02 15:02 | P.PN ---
Subjective Progress Note Date: 09/02/18 This is a pleasant 78-year-old male has medical history significant for coronary artery disease status post bypass grafting 2 first in 1988 with DAI to LAD and SVG to intermediate second in 1999 with radial artery to intermediate, status post permanent pacemaker implantation secondary to sick sinus syndrome, ischemic cardiomyopathy, chronic systolic heart failure, dyslipidemia and hypertension. He follows in the office with Dr. Santos. We have been asked to see him in consultation for symptoms of chest pain. Most recent cardiac catheterization performed in 2010 revealed a patent DAI to LAD, patent radial to intermediate branch and a closed circumflex, RCA with a 50% lesion and ejection fraction at that time was 45-50. He presented to the hospital with symptoms of progressive weakness and overall fatigue. He states he has recently been weaned off of his prescribed alprazolam and has not been feeling himself ever since. He has been experiencing hallucinations, hearing voices, nausea, chest pain, leg cramping and abdominal discomfort. He experienced a pain in the left precordial region described as achy sensation with no radiation to the arm, back, neck or jaw. He feels mildly short of breath at times not associated with exertion and light headed at times as well. He is seen and examined sitting in bed laying flat in no acute distress. He denies any current symptoms of chest pain. He denies palpitations, syncope, PND or orthopnea. Patient underwent a cardiac catheterization yesterday with subsequent successful stenting of the anastomosis of the left internal mammary artery to the LAD. Patient also was noted to have critical disease involving the proximal anastomosis of the radial artery to the OM, severe disease involving the proximal RCA. 09/02/2018 Patient was seen and examined this morning, denied any chest pain or difficulty in breathing. He's been up ambulating in the hallway without any difficulty. Hemodynamically he is stable. Patient will need to come back to the hospital to have PCI of the radial artery to the OM as well as the right coronary artery as a staged procedure. The plan is for him to be discharged home today, follow- up in the office in one week, Objective - Vital Signs Vital signs: Vital Signs Temp 98.2 F 09/02/18 11:30 Pulse 60 09/02/18 11:56 Resp 17 09/02/18 11:56 BP 108/71 02/20/19 11:30 Pulse Ox 95 09/02/18 11:30 Intake & Output 09/01/18 09/02/18 09/02/18 18:59 06:59 18:59 Intake Total 128.47 520 Output Total 300 Balance -171.53 520 Weight 73.482 kg Intake: IV 128.47 Oral 520 Output: Urine 300 Other: Voiding Method Toilet Urinal Urinal - Exam GENERAL: This is a 78-year-old male in no apparent distress at the time of my examination. HEENT: Head is atraumatic, normocephalic. Pupils are equal, round. Sclerae anicteric. Conjunctivae are clear. Mucous membranes of the mouth are moist. Neck is supple. There is no jugular venous distention. No carotid bruit is heard. LUNGS: Clear to auscultation no wheezes, rales or rhonchi. No chest wall tenderness is noted on palpation or with deep breathing. HEART: Regular rate and rhythm without murmurs, rubs or gallops. S1 and S2 heard. ABDOMEN: Soft, nontender. Bowel sounds are heard. No organomegaly noted. EXTREMITIES: No evidence of peripheral edema and no calf tenderness noted. Right groin soft, no evidence of any hematoma. VASCULAR: Radial and dorsalis pedis pulses palpated, no evidence of clubbing. NEUROLOGIC: Patient is awake, alert and oriented x3. - Labs CBC & Chem 7: 09/02/18 05:53 09/02/18 05:53 Labs: Abnormal Lab Results - Last 24 Hours (Table) 09/02/18 Range/Units 05:53 BUN 21 H (9-20) mg/dL Assessment and Plan Plan: Assessment and plan #1 chest discomfort, status post cardiac catheterization which revealed severe triple-vessel coronary artery disease, critical disease involving the anastomosis of the DAI to the LAD for which patient underwent stent placement, critical disease involving the proximal anastomosis of the radial artery to the OM, severe disease involving the proximal RCA. #2 History of coronary artery disease s/p bypass grafting x2. And prior PCI's #3 Ishcemic cardiomyopathy #4 Chronic systolic heart failure #5 Hypertension #6 Dyslipidemia #[address] secondary to sick sinus syndrome Plan Patient may be able to be discharged home today. He will follow-up in the office in one week. Patient will be scheduled as an outpatient for staged intervention of his 2 other lesions. DNP note has been reviewed, I agree with a documented findings and plan of care. Patient was seen and examined.
--- NOTE | 2018-09-03 10:20 | DS ---
DISCHARGE SUMMARY DATE OF SERVICE: 09/02/2018 FINAL DIAGNOSES: 1. Chest pain, possible unstable angina, status post cardiac catheterization and as well as stenting of the anastomosis of the DAI to LAD with excellent angiographic results. 2. Status post stress test showing a fixed defect as well as some reversibility. 3. Congestive heart failure with chronic systolic dysfunction ejection fraction 40% to 50% with apical hypokinesis. 4. Generalized weakness. 5. No evidence orthostatic hypotension. 6. Coronary artery disease, coronary artery bypass grafting. 7. History of ischemic cardiomyopathy. 8. History of chronic congestive heart failure with chronic systolic dysfunction ejection fraction 45% to 50%. 9. History of chronic obstructive pulmonary disease. 10.Dementia. 11.Gastroesophageal reflux disease. 12.Hypertension. 13.Hyperlipidemia. 14.History of myocardial infarction. 15.History of pneumonia. 16.History of coronary artery disease. 17.History of stenting. 18.History of anxiety, depression. 19.Remote history of nicotine dependence. DISCHARGE DISPOSITION: The patient will be discharged in stable condition with guarded prognosis. HISTORY OF PRESENT ILLNESS: This 78-year-old gentleman with a past medical history of multiple medical problems admitted with chest pain and weakness. Patient had a stress test which was minimally abnormal with showing some reversibility. Cardiology performed a cardiac catheterization, stenting of the graft as listed above. Patient improved significantly. The patient also was on Xanax which was stopped for the last few weeks and the patient complained of insomnia. The patient is currently on Effexor. Recommended close follow up with primary physician in the outpatient setting and continue to monitor. On exam, vitals are stable. CARDIOVASCULAR: S1, S2 muffled. ABDOMEN: Soft. NERVOUS SYSTEM: No focal deficits. DISCHARGE ADVICE: 1. Diet is cardiac diet. Activity limited until followup. 1. Follow up with Dr. Gamino in 2 to 3 days. 2. Follow up with Cardiology as recommended. Medications are: 1. Tylenol 1000 mg daily p.r.n. 2. Aspirin 81 mg p.o. daily. 3. Aricept 10 mg p.o. daily. 4. Mobic 15 mg p.o. daily. 5. Effexor 37.5 mg p.o. b.i.d. 6. Lipitor 80 mg q.h.s. 7. Plavix 75 mg p.o. daily. 8. Imdur 30 mg p.o. daily. 9. Cozaar 25 mg p.o. daily. 10.Toprol-XL 50 mg p.o. daily. 11.Nitrostat 0.4 sublingual p.r.n. 12.Prilosec 40 mg daily. 13.Aldactone 25 mg p.o. daily. Once again, the patient discharged in a stable condition with guarded prognosis. MMODL / IJN: [id number] /
== END 2018-09-02 16:22 | disposition home or self-care (01) | DRG 247 ==
LOC: EC 12:27 → 1SOBS 15:45 → OBSVTOIN 09-01 16:07 → 3SCARD 09-01 18:09
PROVIDERS: ADMIT Internal Medicine; ATTEND Internal Medicine
PROC: B2111ZZ Fluoroscopy of Multiple Coronary Arteries using Low Osmolar Contrast (ICD-10-PCS; 2018-09-01)
PROC: 027034Z Dilation of Coronary Artery, One Artery with Drug-eluting Intraluminal Device, Percutaneous Approach (ICD-10-PCS; principal; 2018-09-01 10:10)
PROC: B2131ZZ Fluoroscopy of Multiple Coronary Artery Bypass Grafts using Low Osmolar Contrast (ICD-10-PCS; 2018-09-01 10:10)
DX: I25.710 Atherosclerosis of autologous vein coronary artery bypass graft(s) with unstable angina pectoris (principal); I50.22 Chronic systolic (congestive) heart failure; F13.239 Sedative, hypnotic or anxiolytic dependence with withdrawal, unspecified; R44.3 Hallucinations, unspecified; I25.720 Atherosclerosis of autologous artery coronary artery bypass graft(s) with unstable angina pectoris; I11.0 Hypertensive heart disease with heart failure; I25.82 Chronic total occlusion of coronary artery; J44.9 Chronic obstructive pulmonary disease, unspecified; I25.5 Ischemic cardiomyopathy; F03.90 Unspecified dementia, unspecified severity, without behavioral disturbance, psychotic disturbance, mood disturbance, and anxiety; T42.4X6A Underdosing of benzodiazepines, initial encounter; Z91.128 Patient's intentional underdosing of medication regimen for other reason; F32.9 Major depressive disorder, single episode, unspecified; I25.2 Old myocardial infarction; E78.5 Hyperlipidemia, unspecified; K21.9 Gastro-esophageal reflux disease without esophagitis; G47.00 Insomnia, unspecified; M19.90 Unspecified osteoarthritis, unspecified site; G89.29 Other chronic pain; M54.9 Dorsalgia, unspecified; K59.00 Constipation, unspecified; F41.9 Anxiety disorder, unspecified; R90.82 White matter disease, unspecified; Z79.1 Long term (current) use of non-steroidal anti-inflammatories (NSAID); Z79.02 Long term (current) use of antithrombotics/antiplatelets; Z79.82 Long term (current) use of aspirin; Z79.899 Other long term (current) drug therapy; Z87.19 Personal history of other diseases of the digestive system; Z87.01 Personal history of pneumonia (recurrent); Z85.46 Personal history of malignant neoplasm of prostate; Z95.1 Presence of aortocoronary bypass graft; Z95.5 Presence of coronary angioplasty implant and graft; Z98.42 Cataract extraction status, left eye; Z98.41 Cataract extraction status, right eye; Z87.891 Personal history of nicotine dependence; Z95.0 Presence of cardiac pacemaker; Z86.73 Personal history of transient ischemic attack (TIA), and cerebral infarction without residual deficits; Z82.49 Family history of ischemic heart disease and other diseases of the circulatory system; Z82.3 Family history of stroke; Z81.8 Family history of other mental and behavioral disorders; Y92.009 Unspecified place in unspecified non-institutional (private) residence as the place of occurrence of the external cause
CPT/HCPCS: 36415; 70450; 71046; 78452; 80048; 80053; 80061; 81003; 82550; 82553; 83605; 83735; 83880; 84100; 84484; 85025; 85379; 85610; 85652; 85730; 86140; 93005; 93017; 93306; 93455; 96372; 99285; C1874

== ENCOUNTER 2018-09-03 10:56 | Emergency (ER) | payer MEDICARE ==
[2018-09-03] MEDS ORDERED: ONDANSETRON 4 MG/2 ML VIAL IVP STA (11:16)
[2018-09-03] MEDS ORDERED: SODIUM CHLORIDE 0.9% 500 ML 500 ML IV STA (11:16)
--- NOTE | 2018-09-03 11:21 | ED ---
General Adult HPI - General Chief complaint: Neuro Symptoms/Deficit Stated complaint: Stroke Time Seen by Provider: 09/03/18 11:05 Source: patient Mode of arrival: EMS Limitations: no limitations - History of Present Illness Initial comments: Dictation was produced using [employer] dictation software. please excuse any grammatical, word or spelling errors. Chief Complaint: Patient is 78-year-old male. He presents via EMS for feeling unwell and right-sided neuro deficits History of Present Illness: Patient's 78-year-old male. Patient was brought in by EMS. Patient was allegedly admitted and discharged. He was recently admitted for chest pain with stenting of bypass vessels. His discharge with no complications. Patient states he woke up this morning with feelings of right- sided numbness and paresthesias. Patient states he woke up with these symptoms. States he slipped at approximately 8:00. Woke up at around 8 AM after is normal now. He felt unwell. He had another individual call EMS. EMS reports that he had stable vital signs and that he ambulated to the ambulance rate without complications. Patient states he feels some numbness and weakness to his right lower extremity. He felt fine last night. Patient denies any history of CVA or TIA. He also complains of some mild chest pain with left shoulder pain. The ROS documented in this emergency department record has been reviewed and confirmed by me. Those systems with pertinent positive or negative responses have been documented in the HPI. All other systems are other negative and/or noncontributory. PHYSICAL EXAM: General Impression: Alert and oriented x3, not in acute distress, answers questions appropriately HEENT: Normocephalic atraumatic, extra-ocular movements intact, pupils equal and reactive to light bilaterally, mucous membranes moist. Cardiovascular: Heart regular rate and rhythm, S1&S2 audible, no murmurs, rubs or gallops Chest: Lungs clear to auscultation bilaterally, no rhonchi, no wheeze, no rales Abdomen: Bowel sounds present, abdomen soft, non-tender, non-distended, no organomegaly Musculoskeletal: Pulses present and equal in all extremities, no peripheral edema Motor: Power 5/5 bilaterally, no focal deficits noted Neurological: CN II-XII grossly intact, no focal motor or sensory deficits noted , no ataxia to the extremities, sensory deficit to light touch over the right leg and right upper extremity, mildly aphasic,, positive drift to the right lower extremity Skin: Intact with no visualized rashes Psych: Normal affect and mood ED course: 78-year-old male presents with strokelike symptoms. Last known normal was last night. Patient's NIH score is 5. Code stroke page. Vital signs upon arrival are within acceptable limits. EKG was obtained showing T- wave inversions in the precordial leads. These appear to be persistent since . Discussed patient case with Dr. Rust who requests CT and CTA. CT and CTA were unremarkable for an acute findings. Radiology recommended MRI for further evaluation. Laboratory evaluation obtained. CBC, coag panel. Metabolic panel is unremarkable. Patient has elevated troponin 0.07 which is likely from recent cardiac catheterization. Patient from been in stable medical condition. Patient given aspirin. Discussed patient case with Dr. Park at [facility] was willing to accept the transfer for neurology and further stroke workup. EKG interpretation: Ventricular rate 62, normal sinus rhythm, OK interval 96, QS 110, QTc 442. No OK prolongation, no QTC prolongation, no ST or T-wave changes noted. EKG compared to 08/30/2018 showing no changes. Overall, this EKG is unremarkable - Related Data Home Medications Medication Instructions Recorded Confirmed Acetaminophen Tab [Tylenol] 1,000 mg PO DAILY PRN 06/28/15 09/03/18 Donepezil [Aricept] 20 mg PO DAILY 06/28/15 09/03/18 Venlafaxine HCl [Effexor] 37.5 mg PO BID 06/28/15 09/03/18 Meloxicam [Mobic] 15 mg PO DAILY 07/31/17 09/03/18 Aspirin 81 mg PO DAILY 09/02/18 09/03/18 ALPRAZolam [Xanax] 0.5 mg PO TID PRN 09/03/18 09/03/18 rOPINIRole HCL [Requip] 1 mg PO HS 09/03/18 09/03/18 Previous Rx's Medication Instructions Recorded Nitroglycerin Sl Tabs [Nitrostat] 0.4 mg SUBLINGUAL Q5M PRN tab 07/23/17 Atorvastatin [Lipitor] 80 mg PO HS tab 08/06/17 Clopidogrel [Plavix] 75 mg PO DAILY #30 tab 08/06/17 Isosorbide Mononitrate ER [Imdur] 30 mg PO DAILY #30 tab.er.24h 08/06/17 Losartan [Cozaar] 25 mg PO DAILY tab 08/06/17 Metoprolol Succinate (ER) [Toprol 50 mg PO DAILY #30 tab.er.24h 08/06/17 XL] Spironolactone [Aldactone] 25 mg PO DAILY #30 tab 08/06/17 Allergies Allergy/AdvReac Type Severity Reaction Status Date / Time No Known Allergies Allergy Verified 09/03/18 12:56 Review of Systems ROS Statement: Those systems with pertinent positive or pertinent negative responses have been documented in the HPI. ROS Other: All systems not noted in ROS Statement are negative. 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 SEVERAL [place]'S, BRONCHITIS, DIVERTICULAR DISEASE,CHRONIC BACK PAIN , PROSTATE CA(HAD SX), CONSTIPATION, PALPITATIONS Last Myocardial Infarction Date:: UNK History of Any Multi-Drug Resistant Organisms: None Reported Past Surgical History: Coronary Bypass/CABG, Heart Catheterization With Stent, Prostate Surgery, Tonsillectomy Additional Past Surgical History / Comment(s): CABG TRIOLE VESSEL IN 1988 CABG [id number] IN 1999, THUMB CUT OFF HAD SX TO REATTATCH, COLONOSCOPY, PROSTATECTOMY , RUPTURED ACHILLIES TENDON REPAIR. 5 stents, LEIF CATARACATS Past Anesthesia/Blood Transfusion Reactions: No Reported Reaction Date of Last Stent Placement:: UNK Type of Cardiac Device: Permanent Pacemaker Device Placement Date:: 08/05/17 Past Psychological History: Anxiety, Depression Smoking Status: Former smoker Past Alcohol Use History: None Reported Past Drug Use History: None Reported - Past Family History Father Family Medical History: Coronary Artery Disease (CAD), CVA/TIA Additional Family Medical History / Comment(s): CABG AND VALVE SX Mother Family Medical History: Dementia, Hypertension Additional Family Medical History / Comment(s): MOM IS ALIVE AT 97 YEARS OLD, LIVING IN [facility] General Exam Limitations: no limitations Course Vital Signs 09/03/18 09/03/18 09/03/18 11:05 11:15 12:11 Temperature 98.5 F 97.9 F Pulse Rate 61 60 60 Respiratory 16 16 16 Rate Blood Pressure 133/81 132/72 132/83 O2 Sat by Pulse 96 99 99 Oximetry 09/03/18 09/03/18 13:13 14:00 Temperature Pulse Rate 60 59 L Respiratory 18 16 Rate Blood Pressure 137/77 137/77 O2 Sat by Pulse 97 99 Oximetry Medical Decision Making - Lab Data Result diagrams: 09/03/18 11:05 09/03/18 11:05 Lab Results 09/03/18 09/03/18 09/03/18 Range/Units 11:05 11:05 11:05 WBC 6.1 (3.8-10.6) k/uL RBC 5.02 (4.30-5.90) m/uL Hgb 15.5 (13.0-17.5) gm/dL Hct 47.9 (39.0-53.0) % MCV 95.3 (80.0-100.0) fL MCH 30.9 (25.0-35.0) pg MCHC 32.4 (31.0-37.0) g/dL RDW 12.2 (11.5-15.5) % Plt Count 195 (150-450) k/uL Neutrophils % 71 % Lymphocytes % 18 % Monocytes % 7 % Eosinophils % 2 % Basophils % 1 % Neutrophils # 4.3 (1.3-7.7) k/uL Lymphocytes # 1.1 (1.0-4.8) k/uL Monocytes # 0.4 (0-1.0) k/uL Eosinophils # 0.1 (0-0.7) k/uL Basophils # 0.0 (0-0.2) k/uL PT (9.0-12.0) sec INR (<1.2) APTT (22.0-30.0) sec Sodium 139 (137-145) mmol/L Potassium 4.7 (3.5-5.1) mmol/L Chloride 104 (98-107) mmol/L Carbon Dioxide 27 (22-30) mmol/L Anion Gap 8 mmol/L BUN 27 H (9-20) mg/dL Creatinine 0.91 (0.66-1.25) mg/dL Est GFR (CKD-EPI)AfAm >90 (>60 ml/min/1.73 sqM) Est GFR (CKD-EPI)NonAf 80 (>60 ml/min/1.73 sqM) Glucose 223 H (74-99) mg/dL POC Glucose (mg/dL) (75-99) mg/dL POC Glu Lap Grinder ID Calcium 9.7 (8.4-10.2) mg/dL Magnesium 2.3 (1.6-2.3) mg/dL Total Bilirubin 0.7 (0.2-1.3) mg/dL AST 37 (17-59) U/L ALT 45 (21-72) U/L Alkaline Phosphatase 77 (38-126) U/L Total Creatine Kinase 108 (55-170) U/L CK-MB (CK-2) 1.6 (0.0-2.4) ng/mL CK-MB (CK-2) Rel Index 1.5 Troponin I 0.070 H* (0.000-0.034) ng/mL Total Protein 6.8 (6.3-8.2) g/dL Albumin 4.4 (3.5-5.0) g/dL Lipase 76 (23-300) U/L 09/03/18 09/03/18 Range/Units 11:05 11:07 WBC (3.8-10.6) k/uL RBC (4.30-5.90) m/uL Hgb (13.0-17.5) gm/dL Hct (39.0-53.0) % MCV (80.0-100.0) fL MCH (25.0-35.0) pg MCHC (31.0-37.0) g/dL RDW (11.5-15.5) % Plt Count (150-450) k/uL Neutrophils % % Lymphocytes % % Monocytes % % Eosinophils % % Basophils % % Neutrophils # (1.3-7.7) k/uL Lymphocytes # (1.0-4.8) k/uL Monocytes # (0-1.0) k/uL Eosinophils # (0-0.7) k/uL Basophils # (0-0.2) k/uL PT 9.9 (9.0-12.0) sec INR 0.9 (<1.2) APTT 23.1 (22.0-30.0) sec Sodium (137-145) mmol/L Potassium (3.5-5.1) mmol/L Chloride (98-107) mmol/L Carbon Dioxide (22-30) mmol/L Anion Gap mmol/L BUN (9-20) mg/dL Creatinine (0.66-1.25) mg/dL Est GFR (CKD-EPI)AfAm (>60 ml/min/1.73 sqM) Est GFR (CKD-EPI)NonAf (>60 ml/min/1.73 sqM) Glucose (74-99) mg/dL POC Glucose (mg/dL) 230 H (75-99) mg/dL POC Glu Lap Grinder LISA Amador Kendrick Calcium (8.4-10.2) mg/dL Magnesium (1.6-2.3) mg/dL Total Bilirubin (0.2-1.3) mg/dL AST (17-59) U/L ALT (21-72) U/L Alkaline Phosphatase (38-126) U/L Total Creatine Kinase (55-170) U/L CK-MB (CK-2) (0.0-2.4) ng/mL CK-MB (CK-2) Rel Index Troponin I (0.000-0.034) ng/mL Total Protein (6.3-8.2) g/dL Albumin (3.5-5.0) g/dL Lipase (23-300) U/L Disposition Clinical Impression: Neurosensory deficit Disposition: OTHER INSTITUTION NOT DEFINED Condition: Fair Referrals: Alexandrea Gamino MD [Primary Care Provider] - 1-2 days Time of Disposition: 14:35 - Out of Hospital Transfer - Req. Specs Out of Hospital Transfer - Requested Specifics: Other [facility] ([facility])
[2018-09-03 11:27] LABS: Glucose,Whole Blood 230 mg/dL (75-99)
[2018-09-03 11:34] LABS: Basophils % (A) 1 %; Eosinophils # (A) 0.1 k/uL (0-0.7); Eosinophils % (A) 2 %; HCT 47.9 % (39.0-53.0); HGB 15.5 gm/dL (13.0-17.5); Lymphocytes # (A) 1.1 k/uL (1.0-4.8); Lymphocytes % (A) 18 %; MCH 30.9 pg (25.0-35.0); MCHC 32.4 g/dL (31.0-37.0); MCV 95.3 fL (80.0-100.0); Mean Platelet Volume 6.8; Monocytes # (A) 0.4 k/uL (0-1.0); Monocytes % (A) 7 %; Neutrophils # (A) 4.3 k/uL (1.3-7.7); Neutrophils % (A) 71 %; Platelet Count 195 k/uL (150-450); RBC 5.02 m/uL (4.30-5.90); RDW 12.2 % (11.5-15.5); WBC 6.1 k/uL (3.8-10.6)
[2018-09-03 11:37] VITALS: TEMP 97.9
[2018-09-03 11:39] LABS: ALT 45 U/L (21-72); AST 37 U/L (17-59); Albumin 4.4 g/dL (3.5-5.0); Alkaline Phosphatase 77 U/L (38-126); Anion Gap 8 mmol/L; Blood Urea Nitrogen 27 mg/dL (9-20); Calcium 9.7 mg/dL (8.4-10.2); Carbon Dioxide 27 mmol/L (22-30); Chloride 104 mmol/L (98-107); Glucose 223 mg/dL (74-99); Lipase 76 U/L (23-300); Magnesium 2.3 mg/dL (1.6-2.3); Potassium 4.7 mmol/L (3.5-5.1); Sodium 139 mmol/L (137-145); Total Bilirubin 0.7 mg/dL (0.2-1.3); Total Protein 6.8 g/dL (6.3-8.2)
--- NOTE | 2018-09-03 11:40 | CT ---
EXAMINATION TYPE: CT brain wo con for TPA DATE OF EXAM: 09/03/2018 COMPARISON: 08/30/2018 HISTORY: 78-year-old male with dysphasia, Neuro deficits TECHNIQUE: Examination was done in axial plane without intravenous contrast. Coronal and sagittal r econstructions performed. CT DLP: 1089.8 mGycm Automated exposure control for dose reduction was used. FINDINGS: There is no evidence of acute intracranial hemorrhage, acute ischemic changes, mass, mass-effect, or extra-axial fluid collection. There is no effacement of cerebral sulci or basal subarachnoid cister ns. There is no hydrocephalus. There is no midline shift. Jackman-white matter distinction is preserv ed. Prominent atherosclerotic calcifications within the proximal V4 segment bilateral vertebral arteries as well as within the carotid siphons on both sides. Moderate to severe confluent white matter hypodensities in both cerebral hemispheres redemonstrated. Trace mucosal thickening mid left ethmoid air cells. Mastoid air cells well pneumatized. Orbits and g lobes are intact. IMPRESSION: Similar severe confluent changes of chronic small vessel ischemic disease. No acute intracranial abno rmality seen. If symptoms persist, consider MRI.
[2018-09-03 11:42] LABS: INR 0.9 (<1.2); Partial Thromboplastin Time 23.1 sec (22.0-30.0); Prothrombin Time 9.9 sec (9.0-12.0)
[2018-09-03 12:05] LABS: Creatine Kinase MB 1.6 ng/mL (0.0-2.4)
[2018-09-03 12:15] LABS: Troponin I 0.07 ng/mL (0.000-0.034)
--- NOTE | 2018-09-03 12:40 | XR ---
EXAMINATION TYPE: XR chest 2V DATE OF EXAM: 09/03/2018 COMPARISON: 08/30/2018 HISTORY: Shortness of breath TECHNIQUE: Frontal and lateral views of the chest are obtained. FINDINGS: Scattered senescent parenchymal changes noted. Hyperinflation compatible with COPD. Patchy basilar infiltrates may reflect underlying pneumonia. Correlate clinically and progress studie s are advised. Heart size is stable. Mediastinal structures are stable and grossly unremarkable. No evidence for hilar prominence. Degenerative changes dorsal spine. IMPRESSION: 1. Patchy basilar infiltrates may reflect underlying pneumonia. Correlate clinically and progress viridiana dies are advised.
--- NOTE | 2018-09-03 13:00 | CT ---
EXAMINATION TYPE: CT angio head neck DATE OF EXAM: 09/03/2018 COMPARISON: None HISTORY: Neuro deficits CT DLP: 355 mGycm CONTRAST: Performed with IV Contrast, patient injected with 65 mL of Isovue 300. Combination Contrast CTA cervical carotids and [place] CTA cervical carotids with 3-D recons truction Contrast CTA of the cervical carotids was performed 3-D reconstruction imaging obtained at a separate workstation. Right carotid system: Mild plaque is seen of the right common carotid artery. There is mild plaque a lso noted at the carotid bulb and proximal ICA. No significant diameter reduction. ECA is patent. Right vertebral artery appears unremarkable. Left carotid system: Mild plaque is seen of the left common carotid artery. There is mild to moderat e plaque also noted at the carotid bulb and proximal ICA. No significant diameter reduction. ECA is patent. Left vertebral artery appears unremarkable. IMPRESSION: 1. No significant diameter reduction to account for the patient's symptoms. CTA [place] with 3-D reconstruction Contrast CTA of the [place] was performed 3-D reconstruction imaging obtained at a separate workstation. Vertebrobasilar system as well as intracranial portions of the internal carotid arteries and their ma mary tributaries are patent. I do not see evidence for sizable aneurysm or vascular malformation. Pl ease note MRI provides greater sensitivity and specificity. Visualized brain appears grossly unremar kable. IMPRESSION: 1. No significant abnormality.
[2018-09-03] MEDS ORDERED: ASPIRIN 81 MG PO STA (13:03)
[2018-09-03 13:15] VITALS: BP 137/77
[2018-09-03 14:17] VITALS: PULSE 59; RESP 16
== END 2018-09-03 14:52 | disposition other institution (70) ==
LOC: EC 10:56
DX: R29.818 Other symptoms and signs involving the nervous system (principal); R07.9 Chest pain, unspecified; M25.512 Pain in left shoulder; R79.89 Other specified abnormal findings of blood chemistry; I25.10 Atherosclerotic heart disease of native coronary artery without angina pectoris; F03.90 Unspecified dementia, unspecified severity, without behavioral disturbance, psychotic disturbance, mood disturbance, and anxiety; I25.2 Old myocardial infarction; M19.90 Unspecified osteoarthritis, unspecified site; F41.9 Anxiety disorder, unspecified; F32.9 Major depressive disorder, single episode, unspecified; Z85.46 Personal history of malignant neoplasm of prostate; Z95.1 Presence of aortocoronary bypass graft; Z95.5 Presence of coronary angioplasty implant and graft; Z90.79 Acquired absence of other genital organ(s); Z95.0 Presence of cardiac pacemaker; Z87.891 Personal history of nicotine dependence; Z82.49 Family history of ischemic heart disease and other diseases of the circulatory system; Z82.3 Family history of stroke; Z79.1 Long term (current) use of non-steroidal anti-inflammatories (NSAID); Z79.82 Long term (current) use of aspirin; Z79.899 Other long term (current) drug therapy
CPT/HCPCS: 36415; 93005; 80053; 82550; 82553; 83690; 83735; 84484; 85025; 85610; 85730; 71046; 70496; 70450; 70498; 99285; 96374; 96361; J2405; Q9967

== ENCOUNTER → 2018-11-18 | Outpatient (CLI) | payer MEDICARE | END | disposition home or self-care (01) | LOC: LABWHC1 12:21 | PROVIDERS: ATTEND Otolaryngology | DX: H93.19 Tinnitus, unspecified ear (principal); H91.90 Unspecified hearing loss, unspecified ear | CPT/HCPCS: 36415; 82565; 84520 ==

== ENCOUNTER → 2018-11-27 | Outpatient (CLI) | payer MEDICARE ==
--- NOTE | 2018-11-27 13:16 | CT ---
EXAMINATION TYPE: CT iac wo/w con DATE OF EXAM: 11/27/2018 COMPARISON: CT brain dated 09/03/2018 HISTORY: Left-sided hearing loss and tinnitus CT DLP: 765 mGycm. Automated Exposure Control for Dose Reduction was Utilized. TECHNIQUE: CT scan of internal auditory canal is performed with and without contrast, thin cut axial images are obtained, coronal reformatted images are also reviewed. 100 mL of Isovue-300 was utilized for the enhanced portion of the exam. FINDINGS: There is cerumen within the left external auditory canal abutting the thickened tympanic me mbrane. Additionally there is elongated density within the inferior margin of the Prussak's space ext ending inferiorly to the thickened tympanic membrane. Findings are marked on coronal images. There is no blunting of the scutum noted. There is a very minimal amount of fluid seen within the hypotympanu m. No evidence of superior semicircular canal dehiscence is seen. The right external auditory canal is c lear. Mastoid air cells show no evidence of abnormal opacification bilaterally. The middle ear ossi cles are symmetric and unremarkable. The scutum is preserved bilaterally. The cochlea and the semici rcular canals are symmetric and unremarkable. Vestibular aqueduct and internal carotid canal appear unremarkable. Temporomandibular joints are maintained bilaterally. There is mild leftward nasal septal deviation an d a small leftward nasal septal spur. Very scant mucosal thickening is seen within the ethmoid sinuse s. Remaining visualized paranasal sinuses and mastoid air cells are well aerated. Visualized portion brain parenchyma demonstrates confluent white matter change and volume loss as seen on the prior CT. Scleral calcifications are incidentally noted. IMPRESSION: 1. Linear density seen within the left middle ear cavity and Prussak's space extending to the thicken ed tympanic membrane. Considerations are for cholesteatoma or fibrosis/granulation tissue given the t hickened tympanic membrane. No blunting of the scutum is seen. 2. Small amount of cerumen in the left external auditory canal abutting the thickened tympanic membra ne.
== END | disposition home or self-care (01) ==
LOC: RADCTMAIN 09:23
PROVIDERS: ATTEND Otolaryngology
DX: H73.892 Other specified disorders of tympanic membrane, left ear (principal); H74.8X2 Other specified disorders of left middle ear and mastoid; H61.22 Impacted cerumen, left ear
CPT/HCPCS: 70482; Q9967